=== PATIENT | male | born 1995 | race African-American/Black ===

== ENCOUNTER 2021-03-04 12:31 | Inpatient (IN) | payer OTHER, SELFPAY ==
[2021-03-04] VITALS (8 sets, daily range): BP systolic 126–141; BP diastolic 58–79; PULSE 100–120; RESP 15–22; TEMP 36.2–38.4; O2SAT 90–93; BMI 29.4
--- NOTE | ~2021-03-04 | CT_ITS ---
EXAMINATION: CT ANGIOGRAM OF THE CHEST WITH AND WITHOUT CONTRAST (CT PULMONARY ANGIOGRAM FOR PE) CLINICAL INFORMATION: Reason for Exam high ddimer, hypoxia, r/o PE COMPARISON: Chest x-ray from earlier the same day TECHNIQUE: Prior to contrast administration, noncontrast localization images were obtained. Subsequently, multidetector volumetric imaging was performed from the thoracic inlet to below the diaphragms following the administration of 100 mL Omnipaque 350 intravenous contrast. No contrast reaction reported Sagittal, coronal, and MIP oblique sagittal reformatted images were obtained on the CT workstation, uploaded to PACS, and reviewed. This CT examination was performed using dose optimization techniques as appropriate, variously including the following: *Automated exposure control *Adjustment of mA and/or kV according to patient size (this includes techniques or standardized protocols for targeted exams where dose is matched to indication/reason for exam; i.e. extremities or head) *Use of iterative reconstruction technique Total exam dose-length product 353 mGy-cm FINDINGS: QUALITY OF STUDY/CONTRAST BOLUS: Satisfactory. PULMONARY ARTERIES: No central or segmental pulmonary emboli. THORACIC AORTA: No aneurysm or dissection. LUNG: There is dense consolidation of the left lower lobe with air bronchograms suggestive of pneumonia. There is patchy nodular opacities, bronchial wall thickening and increased peribronchial attenuation seen in the right lower lobe developed small bronchopneumonia. The lungs are otherwise. PLEURA: No pleural effusion or pneumothorax. MEDIASTINUM: Normal heart size. No pericardial effusion. No hilar or mediastinal lymphadenopathy. No evidence of septal bowing or right heart strain. CHEST WALL/AXILLA: No axillary or internal mammary lymphadenopathy. OSSEOUS STRUCTURES: No acute or suspicious osseous abnormality. UPPER ABDOMEN: Unremarkable. No reflux of contrast into the hepatic veins to suggest elevated right heart pressures. CT/CT angio chest PE protocol IMPRESSION: No evidence of pulmonary embolism. Large left lower lobe pneumonia. Small right lower lobe bronchopneumonia. VTE: negative
--- NOTE | ~2021-03-04 | CT_ITS ---
EXAMINATION: CT ABDOMEN AND PELVIS WITH CONTRAST CLINICAL INFORMATION: Elevated liver function tests. Fever. COMPARISON: Chest CTA obtained earlier today TECHNIQUE: Multidetector volumetric images were obtained from the superior aspect of the liver through the pubic symphysis following administration 100 mL of Omnipaque 350 intravenous contrast. Sagittal and coronal reformatted images were obtained on the technologist's workstation. Oral contrast: Yes This CT examination was performed using dose optimization techniques as appropriate, variously including the following: *Automated exposure control *Adjustment of mA and/or kV according to patient size (this includes techniques or standardized protocols for targeted exams where dose is matched to indication/reason for exam; i.e. extremities or head) *Use of iterative reconstruction technique DLP: 646 mGy-cm FINDINGS: LUNG BASES: Large left lower lobe pneumonia and small right lower lobe bronchopneumonia. LIVER, GALLBLADDER, AND BILIARY TREE: The liver is slightly low in attenuation suggestive of fatty infiltration. Liver slightly enlarged, right lobe measuring 21 cm in length. The liver is otherwise unremarkable. The gallbladder is unremarkable. PANCREAS: Unremarkable. SPLEEN: Unremarkable. ADRENAL GLANDS: Unremarkable. KIDNEYS AND URETERS: The kidneys are normal in size, shape, and attenuation. No hydronephrosis, hydroureter, or calculi seen. No perinephric stranding. BLADDER: Unremarkable. GASTROINTESTINAL TRACT: The small and large bowel are unremarkable. The appendix is unremarkable. ABDOMINAL WALL: No significant hernia is appreciated. LYMPH NODES: Normal. VASCULAR: Unremarkable. PELVIC VISCERA: Unremarkable. OSSEOUS STRUCTURES: Unremarkable. CT/CT abdomen pelvis w con IMPRESSION: Low-attenuation slightly enlarged liver suggestive of fatty infiltration. Large left lower lobe pneumonia and small right lower lobe bronchopneumonia.
--- NOTE | ~2021-03-04 | XR_ITS ---
EXAMINATION: XR CHEST CLINICAL INFORMATION: Pneumonia COMPARISON: March 07, 2021 TECHNIQUE: 2 views of the chest were obtained. FINDINGS: There is again noted to be left lower lobe disease consistent with pneumonia which is mildly improved compared to previous study. No pneumothorax or significant pleural effusion. Heart normal size. No evidence of pulmonary edema. XR/XR chest 2V IMPRESSION: Mild improvement of left lower lobe airspace disease.
--- NOTE | ~2021-03-04 | XR_ITS ---
EXAMINATION: XR CHEST CLINICAL INFORMATION: Follow-up pneumonia COMPARISON: Previous chest x-ray 03/04/2021 and chest CTA the same day TECHNIQUE: Frontal view of the chest was obtained. FINDINGS: The cardiac and mediastinal contours are stable. The lung volumes are low. There is a large left base pneumonia. This is not appear appreciably changed from previous exam. The right lung is clear. There is no pleural effusion or pneumothorax. Bony structures are unremarkable. XR/XR chest 1V IMPRESSION: Left lower lobe pneumonia not appreciably changed from recent exams.
--- NOTE | ~2021-03-04 | XR_ITS ---
EXAMINATION: XR CHEST CLINICAL INFORMATION: Dyspnea COMPARISON: None TECHNIQUE: Frontal view of the chest was obtained. FINDINGS: The cardiac silhouette does not appear enlarged. Hilar and mediastinal contours are unremarkable. There is loss of the left hemidiaphragm and increased attenuation at the left lung base suggestive of left base pneumonia, probably the left lower lobe. The right lung is clear. There is no pleural effusion or pneumothorax. Bony structures are unremarkable XR/XR chest 1V IMPRESSION: Left base pneumonia.
--- NOTE | 2021-03-04 12:43 | ECG_ITS ---
Test Reason : SYNCOPE Blood Pressure : / mmHG Vent. Rate : 111 BPM Atrial Rate : 111 BPM P-R Int : 138 ms QRS Dur : 090 ms QT Int : 324 ms P-R-T Axes : 060 048 029 degrees QTc Int : 440 ms Sinus tachycardia Otherwise normal ECG No previous ECGs available Referred By: Aicha Gao Electronically Signed By:TWAN MICHELLE MD
[2021-03-04 12:49] LABS: Glucose, Whole Blood 205 mg/dL (60-115)
--- NOTE | 2021-03-04 12:53 | ED.SOB ---
HPI - SOB/Dyspnea General Chief Complaint: Syncope Stated Complaint: ? covid Time Seen by Provider: 03/04/21 12:42 Source: patient and EMS Mode of arrival: EMS Limitations: no limitations History of Present Illness HPI Narrative: 26 yo male with hypoxia, cough, feeling unwell since vomiting on 02/26 seen in methadone clinic and sent to ED, 93% on 6L NC with EMS MD elicited complaint: shortness of breath and cough Onset (ago): day(s) (7) Context: recent illness and choking/aspiration Timing: constant and progressively worsening Severity: severe Exacerbating factors: exertion and coughing Relieving factors: oxygen and rest Associated symptoms: cough Treatment prior to arrival: oxygen Related Data Home Medications Medication Instructions Recorded Confirmed methadone 140 mg PO DAILY 03/04/21 03/04/21 Allergies Allergy/AdvReac Type Severity Reaction Status Date / Time hydrocodone [Vicodin] Allergy Unknown stomach Verified 03/04/21 15:15 upset Review of Systems Review of Systems: Constitutional : No Fever, pos Chills, pos fatigue ENT/Mouth : No sore throat, No Rhinorrhea, No Swallowing Difficulty Eyes: No Eye Pain, No Swelling, No Redness Cardiovascular : No Chest Pain, positive SOB, No Orthopnea, no Edema Respiratory : pos Cough, pos Sputum, no Wheezing, positive dyspnea Gastrointestinal : pos Nausea, No Vomiting, No Diarrhea, No abdominal Pain, No Hematochezia, No Melena Genitourinary : No Dysuria, No Urinary Frequency, No Hematuria Musculoskeletal : No joint pain, No Myalgias Skin : No Skin Lesions, No rash Neuro : No Weakness, No Numbness, No Dizziness, No Headache Psych : No Anxiety/Panic, No Depression Heme/Lymph: No Bruising, No Lymphadenopathy Endocrine : No Polyuria, No Polydipsia All other systems reviewed and are negative [facility] Past Medical History Attestation statement: The following information was validated with the patient. Medical History Opiate use Social History Social History (Updated 03/04/21 @ 12:57 by Aicha Gao DO) Alcohol intake: never Patient Tobacco Use Status: Never used Tobacco Substance Use Type: Former Substance User Advance Directives: No Advance Directives Information Provided: No Physical Exam Vital Signs: Vital Signs: Last Vital Signs Temp 101.1 F H 03/04/21 12:42 Pulse 116 H 03/04/21 13:50 Resp 20 03/04/21 13:50 BP 141/79 H 03/04/21 13:50 Pulse Ox 92 03/04/21 13:56 Oxygen Flow Rate 2 03/04/21 13:56 Body Mass Index 29.4 Appearance: Alert. Oriented X3. Anxious mild acute distress. Eyes: Pupils equal, round and reactive to light. scleral icterus ENT: Pharynx moderate dry MMM Neck: Normal inspection. Neck supple. CVS: tachcyardic heart rate and rhythm. Pulses normal. Respiratory: mild respiratory distress tachypnea/retractions. Breath sounds decreased throughout Abdomen: Soft and non-tender. Skin: Skin warm and dry. Normal skin color. Normal skin turgor. Extremities: No lower extremity edema. No calf ttp Neuro: Oriented X 3. No motor deficit. No sensory deficit. Course Course Course Narrative: patient was not very forthcoming with me during interview but reportedly EMS told RN he had syncopal episode at methadone clinic - he has no injuries reported given LFTs, CT scan for mass / infection ordered sign out to Dr. Staton pending CT scans and admission MDM - SOB/Dyspnea MDM Narrative Medical decision making narrative: 26 yo male with 1 week of feeling ill and trouble breathing after vomiting, on methadone no IVDA, febrile and hypoxic in ED - no prior asthma known or use of INH at this time will obtain labs, COVID swab, xopenex, O2 supplement, CXR, EKG, ddimer - anticipate admission for pneumonia vs aspiration pneumonia vs COVID Lab Data Result diagrams: 03/04/21 14:35 03/04/21 14:35 Labs: Lab Results 03/04/21 03/04/21 03/04/21 Range/Units 12:45 14:34 14:35 WBC 22.3 H (4.8-10.8) X10*3/uL RBC 3.80 L (4.60-5.80) X10*6/uL Hgb 12.3 L (14.0-18.0) g/dl Hct 35.4 L (42-52) % MCV 93.2 (80-98) fL MCH 32.4 (27.0-33.0) pg MCHC 34.7 (31.0-36.0) g/dl RDW 12.2 (11.0-16.0) % Plt Count 229 (160-400) X10*3/uL MPV 10.8 (9.4-12.4) fL Immature Gran % (Auto) Cancelled Neut % (Auto) Cancelled Lymph % (Auto) Cancelled Treasure % (Auto) Cancelled Eos % (Auto) Cancelled Baso % (Auto) Cancelled Lymph # (Auto) Cancelled [place] # (Auto) Cancelled Eos # (Auto) Cancelled Baso # (Auto) Cancelled Abs Immat Gran (auto) Cancelled Absolute Neuts (auto) Cancelled Absolute Nucleated RBC 0.040 H (0.0-0.012) X10*3/uL Nucleated RBC % (auto) 0.2 (0.0-0.2) /100WBC Neutrophils % (Manual) 57 (45-73) % Band Neutrophils % 29 H (3-5) % Lymphocytes % (Manual) 4 L (20-40) % Atypical Lymphs % (Man) 1 (0-6) % Monocytes % (Manual) 4 (2-11) % Metamyelocytes % 3 % Myelocytes % 2 % Abs Neuts (Manual) 19.2 H (2.2-7.9) X10*3/uL Lymphocytes # (Manual) 0.9 (0.6-4.8) X10*3/uL Atyp Lymphs # (Manual) 0.2 x10*3/uL Monocytes # (Manual) 0.9 (0.0-1.2) X10*3/uL Metamyelocytes # 0.7 X10*3/uL Myelocytes # 0.4 X10*/uL Toxic Vacuolation PRESENT Platelet Estimate NORMAL (NORMAL) Large Platelets PRESENT Plt Morphology Comment NOTED RBC Morphology NORMAL Polychromasia 2+ (3-5) /OIF Target Cells 1+ (5-14) /OIF Lane Cells 3+ (>5) /OIF Acanthocytes (Spur) 1+ (0-2) /OIF PT (10.8-13.0) SEC INR (0.9-1.1) APTT (24.1-38.0) SEC D-Dimer NG/ML VBG pH (7.32-7.43) VBG pCO2 mmHg VBG pO2 mmHg VBG HCO3 (22-26) mmol/L VBG O2 Saturation % VBG Base Excess mmol/L Sodium (135-145) mmol/L Potassium (3.3-5.1) mmol/L Chloride (96-108) mmol/L Carbon Dioxide (22-29) mmol/L Anion Gap (12-20) BUN (9-16) mg/dL Creatinine (0.5-1.4) mg/dL Estim Creat Clear Calc Estimated GFR POC Glucose 205 H (60-115) mg/dL Random Glucose (60-115) mg/dL Lactic Acid 1.8 (0.5-2.0) mmol/L Calcium (8.4-10.2) mg/dL Magnesium (1.6-2.6) mg/dL Total Bilirubin (0.0-1.0) mg/dL Direct Bilirubin (0.0-0.5) mg/dL AST (5-37) U/L ALT (0-40) U/L Alkaline Phosphatase (39-117) U/L Lactate Dehydrogenase (118-273) U/L Total Creatine Kinase (38-174) U/L Troponin I High Sens (<3.5-35.0) ng/L C-Reactive Protein (< or = 0.50) mg/dL B-Natriuretic Peptide (<100) pg/mL Total Protein (6.5-8.0) g/dL Albumin (3.5-5.0) g/dL Procalcitonin ng/mL Urine Color Urine Appearance Urine pH (5.0-8.0) Ur Specific [place] (1.005-1.025) Urine Protein (NEG-TRACE) MG/DL Urine Glucose (UA) (NEG) MG/DL Urine Ketones (NEG) MG/DL Urine Blood (NEG) Urine Nitrite (NEG) Ur Leukocyte Esterase (NEG) Urine RBC (0) /HPF Urine WBC (0-4) /HPF Ur Squamous Epith Cells /LPF Amorphous Sediment /LPF Urine Bacteria /LPF COVID-19 (CHANDA) (Negative) COVID-19 Clin Com 03/04/21 03/04/21 03/04/21 Range/Units 14:35 14:36 14:37 WBC (4.8-10.8) X10*3/uL RBC (4.60-5.80) X10*6/uL Hgb (14.0-18.0) g/dl Hct (42-52) % MCV (80-98) fL MCH (27.0-33.0) pg MCHC (31.0-36.0) g/dl RDW (11.0-16.0) % Plt Count (160-400) X10*3/uL MPV (9.4-12.4) fL Immature Gran % (Auto) Neut % (Auto) Lymph % (Auto) Treasure % (Auto) Eos % (Auto) Baso % (Auto) Lymph # (Auto) [place] # (Auto) Eos # (Auto) Baso # (Auto) Abs Immat Gran (auto) Absolute Neuts (auto) Absolute Nucleated RBC (0.0-0.012) X10*3/uL Nucleated RBC % (auto) (0.0-0.2) /100WBC Neutrophils % (Manual) (45-73) % Band Neutrophils % (3-5) % Lymphocytes % (Manual) (20-40) % Atypical Lymphs % (Man) (0-6) % Monocytes % (Manual) (2-11) % Metamyelocytes % % Myelocytes % % Abs Neuts (Manual) (2.2-7.9) X10*3/uL Lymphocytes # (Manual) (0.6-4.8) X10*3/uL Atyp Lymphs # (Manual) x10*3/uL Monocytes # (Manual) (0.0-1.2) X10*3/uL Metamyelocytes # X10*3/uL Myelocytes # X10*/uL Toxic Vacuolation Platelet Estimate (NORMAL) Large Platelets Plt Morphology Comment RBC Morphology Polychromasia /OIF Target Cells /OIF Monique Cells /OIF Acanthocytes (Spur) /OIF PT 20.2 H (10.8-13.0) SEC INR 1.7 H (0.9-1.1) APTT 39.2 H (24.1-38.0) SEC D-Dimer 1887 NG/ML VBG pH (7.32-7.43) VBG pCO2 mmHg VBG pO2 mmHg VBG HCO3 (22-26) mmol/L VBG O2 Saturation % VBG Base Excess mmol/L Sodium 129 L (135-145) mmol/L Potassium 4.0 (3.3-5.1) mmol/L Chloride 89 L (96-108) mmol/L Carbon Dioxide 28 (22-29) mmol/L Anion Gap 16 (12-20) BUN 18 H (9-16) mg/dL Creatinine 1.03 (0.5-1.4) mg/dL Estim Creat Clear Calc 122.3 Estimated GFR > 60 POC Glucose (60-115) mg/dL Random Glucose 137 H (60-115) mg/dL Lactic Acid (0.5-2.0) mmol/L Calcium 8.8 (8.4-10.2) mg/dL Magnesium 2.4 (1.6-2.6) mg/dL Total Bilirubin 5.3 H (0.0-1.0) mg/dL Direct Bilirubin 3.7 H (0.0-0.5) mg/dL AST 138 H (5-37) U/L ALT 43 H (0-40) U/L Alkaline Phosphatase 98 (39-117) U/L Lactate Dehydrogenase 943 H (118-273) U/L Total Creatine Kinase 833 H (38-174) U/L Troponin I High Sens < 3.5 (<3.5-35.0) ng/L C-Reactive Protein 43.29 H (< or = 0.50) mg/dL B-Natriuretic Peptide < 10 (<100) pg/mL Total Protein 6.9 (6.5-8.0) g/dL Albumin 3.6 (3.5-5.0) g/dL Procalcitonin ng/mL Urine Color Urine Appearance Urine pH (5.0-8.0) Ur Specific [place] (1.005-1.025) Urine Protein (NEG-TRACE) MG/DL Urine Glucose (UA) (NEG) MG/DL Urine Ketones (NEG) MG/DL Urine Blood (NEG) Urine Nitrite (NEG) Ur Leukocyte Esterase (NEG) Urine RBC (0) /HPF Urine WBC (0-4) /HPF Ur Squamous Epith Cells /LPF Amorphous Sediment /LPF Urine Bacteria /LPF COVID-19 (CHANDA) (Negative) COVID-19 Clin Com 03/04/21 03/04/21 03/04/21 Range/Units 14:42 14:43 14:50 WBC (4.8-10.8) X10*3/uL RBC (4.60-5.80) X10*6/uL Hgb (14.0-18.0) g/dl Hct (42-52) % MCV (80-98) fL MCH (27.0-33.0) pg MCHC (31.0-36.0) g/dl RDW (11.0-16.0) % Plt Count (160-400) X10*3/uL MPV (9.4-12.4) fL Immature Gran % (Auto) Neut % (Auto) Lymph % (Auto) Treasure % (Auto) Eos % (Auto) Baso % (Auto) Lymph # (Auto) [place] # (Auto) Eos # (Auto) Baso # (Auto) Abs Immat Gran (auto) Absolute Neuts (auto) Absolute Nucleated RBC (0.0-0.012) X10*3/uL Nucleated RBC % (auto) (0.0-0.2) /100WBC Neutrophils % (Manual) (45-73) % Band Neutrophils % (3-5) % Lymphocytes % (Manual) (20-40) % Atypical Lymphs % (Man) (0-6) % Monocytes % (Manual) (2-11) % Metamyelocytes % % Myelocytes % % Abs Neuts (Manual) (2.2-7.9) X10*3/uL Lymphocytes # (Manual) (0.6-4.8) X10*3/uL Atyp Lymphs # (Manual) x10*3/uL Monocytes # (Manual) (0.0-1.2) X10*3/uL Metamyelocytes # X10*3/uL Myelocytes # X10*/uL Toxic Vacuolation Platelet Estimate (NORMAL) Large Platelets Plt Morphology Comment RBC Morphology Polychromasia /OIF Target Cells /OIF Lane Cells /OIF Acanthocytes (Spur) /OIF PT (10.8-13.0) SEC INR (0.9-1.1) APTT (24.1-38.0) SEC D-Dimer NG/ML VBG pH 7.40 (7.32-7.43) VBG pCO2 47 mmHg VBG pO2 37 mmHg VBG HCO3 29 H (22-26) mmol/L VBG O2 Saturation 58.0 % VBG Base Excess 4.3 mmol/L Sodium (135-145) mmol/L Potassium (3.3-5.1) mmol/L Chloride (96-108) mmol/L Carbon Dioxide (22-29) mmol/L Anion Gap (12-20) BUN (9-16) mg/dL Creatinine (0.5-1.4) mg/dL Estim Creat Clear Calc Estimated GFR POC Glucose (60-115) mg/dL Random Glucose (60-115) mg/dL Lactic Acid (0.5-2.0) mmol/L Calcium (8.4-10.2) mg/dL Magnesium (1.6-2.6) mg/dL Total Bilirubin (0.0-1.0) mg/dL Direct Bilirubin (0.0-0.5) mg/dL AST (5-37) U/L ALT (0-40) U/L Alkaline Phosphatase (39-117) U/L Lactate Dehydrogenase (118-273) U/L Total Creatine Kinase (38-174) U/L Troponin I High Sens (<3.5-35.0) ng/L C-Reactive Protein (< or = 0.50) mg/dL B-Natriuretic Peptide Cancelled (<100) pg/mL Total Protein (6.5-8.0) g/dL Albumin (3.5-5.0) g/dL Procalcitonin ng/mL Urine Color Urine Appearance Urine pH (5.0-8.0) Ur Specific [place] (1.005-1.025) Urine Protein (NEG-TRACE) MG/DL Urine Glucose (UA) (NEG) MG/DL Urine Ketones (NEG) MG/DL Urine Blood (NEG) Urine Nitrite (NEG) Ur Leukocyte Esterase (NEG) Urine RBC (0) /HPF Urine WBC (0-4) /HPF Ur Squamous Epith Cells /LPF Amorphous Sediment /LPF Urine Bacteria /LPF COVID-19 (CHANDA) Negative (Negative) COVID-19 Clin Com See Note 03/04/21 03/04/21 Range/Units 14:56 16:02 WBC (4.8-10.8) X10*3/uL RBC (4.60-5.80) X10*6/uL Hgb (14.0-18.0) g/dl Hct (42-52) % MCV (80-98) fL MCH (27.0-33.0) pg MCHC (31.0-36.0) g/dl RDW (11.0-16.0) % Plt Count (160-400) X10*3/uL MPV (9.4-12.4) fL Immature Gran % (Auto) Neut % (Auto) Lymph % (Auto) Treasure % (Auto) Eos % (Auto) Baso % (Auto) Lymph # (Auto) Treasure # (Auto) Eos # (Auto) Baso # (Auto) Abs Immat Gran (auto) Absolute Neuts (auto) Absolute Nucleated RBC (0.0-0.012) X10*3/uL Nucleated RBC % (auto) (0.0-0.2) /100WBC Neutrophils % (Manual) (45-73) % Band Neutrophils % (3-5) % Lymphocytes % (Manual) (20-40) % Atypical Lymphs % (Man) (0-6) % Monocytes % (Manual) (2-11) % Metamyelocytes % % Myelocytes % % Abs Neuts (Manual) (2.2-7.9) X10*3/uL Lymphocytes # (Manual) (0.6-4.8) X10*3/uL Atyp Lymphs # (Manual) x10*3/uL Monocytes # (Manual) (0.0-1.2) X10*3/uL Metamyelocytes # X10*3/uL Myelocytes # X10*/uL Toxic Vacuolation Platelet Estimate (NORMAL) Large Platelets Plt Morphology Comment RBC Morphology Polychromasia /OIF Target Cells /OIF Lane Cells /OIF Acanthocytes (Spur) /OIF PT (10.8-13.0) SEC INR (0.9-1.1) APTT (24.1-38.0) SEC D-Dimer NG/ML VBG pH (7.32-7.43) VBG pCO2 mmHg VBG pO2 mmHg VBG HCO3 (22-26) mmol/L VBG O2 Saturation % VBG Base Excess mmol/L Sodium (135-145) mmol/L Potassium (3.3-5.1) mmol/L Chloride (96-108) mmol/L Carbon Dioxide (22-29) mmol/L Anion Gap (12-20) BUN (9-16) mg/dL Creatinine (0.5-1.4) mg/dL Estim Creat Clear Calc Estimated GFR POC Glucose (60-115) mg/dL Random Glucose (60-115) mg/dL Lactic Acid (0.5-2.0) mmol/L Calcium (8.4-10.2) mg/dL Magnesium (1.6-2.6) mg/dL Total Bilirubin (0.0-1.0) mg/dL Direct Bilirubin (0.0-0.5) mg/dL AST (5-37) U/L ALT (0-40) U/L Alkaline Phosphatase (39-117) U/L Lactate Dehydrogenase (118-273) U/L Total Creatine Kinase (38-174) U/L Troponin I High Sens (<3.5-35.0) ng/L C-Reactive Protein (< or = 0.50) mg/dL B-Natriuretic Peptide (<100) pg/mL Total Protein (6.5-8.0) g/dL Albumin (3.5-5.0) g/dL Procalcitonin 37.72 ng/mL Urine Color ORANGE Urine Appearance CLEAR Urine pH 6.0 (5.0-8.0) Ur Specific [place] 1.025 (1.005-1.025) Urine Protein 2+ H (NEG-TRACE) MG/DL Urine Glucose (UA) 100 H (NEG) MG/DL Urine Ketones 5 (NEG) MG/DL Urine Blood 2+ H (NEG) Urine Nitrite NEG (NEG) Ur Leukocyte Esterase NEG (NEG) Urine RBC 1-4 (0) /HPF Urine WBC 0-2 (0-4) /HPF Ur Squamous Epith Cells TRACE /LPF Amorphous Sediment 1+ /LPF Urine Bacteria TRACE /LPF COVID-19 (CHANDA) (Negative) COVID-19 Clin Com ECG Data Attestation: I personally reviewed and interpreted this ECG as follows: ECG interpretation date: 03/04/21 ECG interpretation time: 15:14 Interpretation: Rate: 111 Rhythm: sinus tachycardia [place]: normal Normal P waves. Normal JON. Normal QRS complex. ST T wave : normal no ELIUD qTC: normal prior studies: no acute ischemia The study has been interpreted contemporaneously by me. . Critical Care Time Critical Care Time Critical Care Time: Yes Total Critical Care Time: 35 Attestation: O2 supplementation, IV antibiotics, repeat assessments I attest to this time spent taking care of the patient Discharge Plan Discharge Clinical Impression: Elevated liver function tests, Hyperbilirubinemia Pneumonia Qualifiers: Pneumonia type: due to unspecified organism Laterality: left Lung location: lower lobe of lung Qualified Code(s): J18.9 - Pneumonia, unspecified organism Leukocytosis Qualifiers: Leukocytosis type: unspecified Qualified Code(s): D72.829 - Elevated white blood cell count, unspecified Fever Qualifiers: Fever type: unspecified Qualified Code(s): R50.9 - Fever, unspecified Patient Disposition: Admitted As Inpatient
[2021-03-04 14:58] LABS: VBG Base Excess 4.3 mmol/L; VBG HCO3 29 mmol/L (22-26); VBG pCO2 47 mmHg; VBG pO2 37 mmHg
[2021-03-04 14:59] LABS: Venous Blood Gas Refer to POC result
[2021-03-04 15:00] LABS: Hematocrit 35.4 % (42-52); Hemoglobin 12.3 g/dl (14.0-18.0); Mean Corpuscular HGB Conc 34.7 g/dl (31.0-36.0); Mean Corpuscular Hemoglobin 32.4 pg (27.0-33.0); Mean Corpuscular Volume 93.2 fL (80-98); Mean Platelet Volume 10.8 fL (9.4-12.4); NRBC Pct Auto 0.2 /100WBC (0.0-0.2); Platelet Count 229 X10*3/uL (160-400); Red Cell Distribution Width 12.2 % (11.0-16.0); White Blood Count 22.3 X10*3/uL (4.8-10.8)
[2021-03-04 15:06] LABS: INTERNATIONAL NORM RATIO 1.7 (0.9-1.1); Prothrombin Time 20.2 SEC (10.8-13.0)
[2021-03-04] MEDS: Acetaminophen 325 MG TABLET 650 MG PO (15:13)
[2021-03-04] MEDS: cefTRIAXone sodium 1 GM in 0.9 % Sodium Chloride 50 ML IV (15:13)
[2021-03-04 15:16] LABS: D Dimer 1887 NG/ML; Partial Thromboplastin Time 39.2 SEC (24.1-38.0)
--- NOTE | 2021-03-04 15:17 | PC.NURSE ---
Pt continues to require nasal cannula. 93% on 5L. Pt denies feeling SOB.
[2021-03-04 15:19] LABS: Lactic Acid 1.8 mmol/L (0.5-2.0)
[2021-03-04 15:21] LABS: COVID-19 Test Negative (Negative); IDNOW Serial# 9DD0AD1C
[2021-03-04 15:32] LABS: B Type Natriuretic Peptide < 10 pg/mL (<100); Troponin-I High Sensitivity < 3.5 ng/L (<3.5-35.0)
[2021-03-04 15:47] LABS: Acanthocytes 1+ (0-2) /OIF; Alanine Aminotransferase 43 U/L (0-40); Albumin Level 3.6 g/dL (3.5-5.0); Alkaline Phosphatase 98 U/L (39-117); Anion Gap 16 (12-20); Aspartate Amino Transferase 138 U/L (5-37); Atypical Lymph Absolute Manual 0.2 x10*3/uL; Atypical Lymphs Percent Manual 1 % (0-6); Band Neutrophils Percent 29 % (3-5); Bilirubin Direct 3.7 mg/dL (0.0-0.5); Bilirubin Total 5.3 mg/dL (0.0-1.0); Blood Urea Nitrogen 18 mg/dL (9-16); Burr Cells 3+ (>5) /OIF; Calcium 8.8 mg/dL (8.4-10.2); Carbon Dioxide 28 mmol/L (22-29); Chloride 89 mmol/L (96-108); Creatinine Clr Calc Pharmacy 122.3; Estimated Glomerular Filt Rate > 60; Glucose Random 137 mg/dL (60-115); Lactate Dehydrogenase 943 U/L (118-273); Large Platelet PRESENT; Lymphocytes Absolute Manual 0.9 X10*3/uL (0.6-4.8); Lymphocytes Percent Manual 4 % (20-40); Magnesium 2.4 mg/dL (1.6-2.6); Metamyelocytes Absolute 0.7 X10*3/uL; Metamyelocytes Percent 3 %; Monocytes Absolute Manual 0.9 X10*3/uL (0.0-1.2); Monocytes Percent Manual 4 % (2-11); Myelocytes Absolute 0.4 X10*/uL; Myelocytes Percent 2 %; Neutrophils Absolute Manual 19.2 X10*3/uL (2.2-7.9); Neutrophils Percent Manual 57 % (45-73); Platelet Estimate NORMAL (NORMAL); Platelet Morphology Comment NOTED; Polychromasia 2+ (3-5) /OIF; RBC Morphology NORMAL; Sodium 129 mmol/L (135-145); Target Cells 1+ (5-14) /OIF; Total Protein 6.9 g/dL (6.5-8.0); Toxic Vacuolation PRESENT
[2021-03-04 15:53] LABS: Procalcitonin 37.72 ng/mL
[2021-03-04 16:01] LABS: C Reactive Protein 43.29 mg/dL (< or = 0.50)
--- NOTE | 2021-03-04 16:09 | PC.NURSE ---
pt is currently caox4 and resting comfortably in semifowlers position pt has slight accessory muscle use and coares LS on left side. pt is in sinus tach on monitor pt denies discomfort at this time. message was left by this rn with jan mendieta regarding methadone dosing.
[2021-03-04 16:10] LABS: Glucose Urine UA 100 MG/DL (NEG); Leukocyte Esterase Urine NEG (NEG); Specific Gravity - Urine 1.025 (1.005-1.025); Urine Blood 2+ (NEG); Urine Ketones 5 MG/DL (NEG); Urine Protein 2+ MG/DL (NEG-TRACE)
[2021-03-04] MEDS: Azithromycin 500 MG in 0.9 % Sodium Chloride 250 ML 125 MG IV (16:22)
[2021-03-04 16:25] LABS: Nitrite Urine NEG (NEG)
[2021-03-04] MEDS: iohexoL 350 MG/ML 100 ML INFUS..BTL IV (16:25)
[2021-03-04 16:26] LABS: Appearance Urine CLEAR; Color Urine ORANGE
[2021-03-04] MEDS: 0.9 % Sodium Chloride 1,000 ML 999 ML IVCONT (16:30)
[2021-03-04 16:32] LABS: Amorphous Sediment Urine 1+ /LPF; Bacteria Urine TRACE /LPF; Squamous Epithelial Cell Urine TRACE /LPF; WBC Urine 0-2 /HPF (0-4)
--- NOTE | 2021-03-04 16:32 | HE.PHANOTE ---
Pharmacy has completed the medication reconciliation and there were no significant medication issues requiring provider attention.
[2021-03-04 16:49] LABS: Amphetamine Screen Urine Not Detected (Not Detect); Barbiturates, Urine Not Detected (Not Detect); Benzodiazepines Screen Urine Not Detected (Not Detect); Cannabinoid Screen Urine Not Detected (Not Detect); Cocaine Screen Urine POSITIVE (Not Detect); Opiate Screen Urine POSITIVE (Not Detect); Phencyclidine Screen Urine Not Detected (Not Detect)
--- NOTE | 2021-03-04 17:47 | MHC.RECOVSUP ---
? Reason for consult Recovery support o Current location: ED3 o Identified substance use concern: Heroin - Support ? Intervention: o Community resources provided o Harm reduction discussion ? Plan: o Patient to follow up with [facility] after discharge ? Additional information: Patient relapsed on and off for 2 years.Patient has been on MAT for 4 years.. Was able to talk with patient about harm reduction and [facility].. I supplied patien with recovery information Patient stated that He would check it out
[2021-03-04] MEDS: vancomycin HCL 1,000 MG in 0.9 % Sodium Chloride 250 ML 270 MG IV (19:48)
--- NOTE | 2021-03-04 20:01 | PM.IMHP ---
History of Present Illness Date of Service: 03/04/21 Chief Complaint: Shortness of breath 26-year-old female with a past medical history of polysubstance abuse/abuses cocaine and heroin; opiate dependence on methadone maintenance program, presented to the hospital with a chief complaint of cough and shortness of breath. Patient mentions that she has been using heroin and last use was yesterday and this morning when she woke up she had multiple episodes of nausea and vomiting; denies any blood in the vomitus. Denies any chest pain palpitations. Denies any numbness tingling. Denies any symptoms. Review of all other systems is negative except mentioned above ER course: Per ER team patient noted to be hypoxic at 92% on 5 L; patient was given vanc and Zosyn. Noted to have hyponatremia, leukocytosis, normal lactate, elevated procalcitonin. Patient not in respiratory distress. Mildly tachycardic. CT angio chest showed left lower lobe pneumonia; question aspirated. No evidence of pulmonary embolism. COVID-19 negative. Patient was given nebulizer treatment as well. admitted for further management [facility] Medical History Opiate use Respiratory failure with hypoxia Respiratory failure with hypoxia Substance abuse or dependence Social History Household Members: None Housing: Apartment Alcohol intake: never Patient Tobacco Use Status: Never used Tobacco Use of substances other than those prescribed or required for medical reasons: Yes Substance Use Type: Crack/Cocaine Last Used Substance: Just Prior to Admission Currently Displaying Signs/Symptoms of Drug Intoxication Withdrawal: No Any prior treatment program specific to substance use: Yes Have you been hit, kicked, punched, or otherwise hurt by someone within the past year? If so, by whom?: No Do you feel safe in your current relationship?: No Current Relationship Is there a partner from a previous relationship who is making you feel unsafe now?: No Are you made to feel afraid or neglected: No Spiritual Healthcare Practices: n/a Jain Healthcare Practices: n/a Cultural Healthcare Practices: n/a Advance Directives: No Advance Directives Information Provided: No Do you have thoughts of harming others: None Do you have a plan to hurt others: No Plan Recently lost weight without trying: No Nutrition Risks: No Nutritional Risk Poor oral hygiene: No service: No Current occupational status: disabled Meds Allergies Allergy/AdvReac Type Severity Reaction Status Date / Time hydrocodone [Vicodin] Allergy Unknown stomach Verified 03/04/21 15:15 upset Active Medications: Current Medications Generic Name Dose Route Start Last Admin Trade Name Freq PRN Reason Stop Dose Admin Acetaminophen 650 mg 03/04/21 19:52 Acetaminophen 325 Mg Tablet PO Q6H PRN Pain, Mild (Pain Scale 1-3) Albuterol/Ipratropium 3 ml 03/04/21 19:52 Albuterol/Iprat 2.5/0.5mg 3 Ml Ampul.Neb INHALE RQ4H PRN Shortness of Breath/Wheezing Enoxaparin Sodium 40 mg 03/04/21 20:00 Enoxaparin Sodium 40 Mg/0.4 Ml Syringe SUBCUT Q24H TISH Dextrose/Sodium Chloride 1,000 mls @ 100 mls/hr 03/04/21 20:00 D5ns IVCONT .Q10H TISH Vancomycin HCl 1,000 mg/ 270 mls @ 270 mls/hr 03/04/21 20:00 Sodium Chloride IV Q12H TISH Piperacillin Sod/Tazobactam 50 mls @ 100 mls/hr 03/04/21 20:00 Sod 3.375 gm/ Sodium Chloride IV Q6H TISH Magnesium Hydroxide 30 ml 03/04/21 19:52 Milk Of Magnesia 30 Ml Oral.Susp PO DAILY PRN Constipation Ondansetron HCl 4 mg 03/04/21 19:52 Ondansetron Hcl 4 Mg/2 Ml Vial IVPUSH Q8H PRN Nausea and Vomiting Oxycodone HCl 5 mg 03/04/21 19:52 Oxycodone Hcl Immed Release 5 Mg Tablet PO Q6H PRN Pain, Severe (Pain Scale 7-10) Pharmacy Consult 1 each 03/04/21 12:51 Consult Rx Perform Med Rec MISCELLANE ONCE PRN Consult order Pharmacy Consult 1 each 03/04/21 19:52 Consult Rx Vancomycin Dosing MISCELLANE DAILY PRN Consult order Sodium Chloride 3 ml 03/05/21 00:00 0.9 % Sodium Chloride Flush 3 Ml Syringe IVFLUSH QSHIFT [facility] Home Medications Medication Instructions Recorded Confirmed Last Taken Type methadone 140 mg PO DAILY 03/04/21 03/04/2121 History Physical Exam Vital Signs and Narrative: Vital Signs: Last Vital Signs Temp 101.1 F H 03/04/21 12:42 Pulse 105 H 03/04/21 16:51 Resp 16 03/04/21 16:51 BP 141/74 H 03/04/21 16:51 Pulse Ox 92 03/04/21 13:56 Oxygen Flow Rate 2 03/04/21 13:56 Body Mass Index 29.4 Gen: Appears be in no acute distress HEENT: NCAT, Moist mucosa. Pulmonary: Course breath sounds, fair air entry CVS: Normal S1-S2 Abdomen: BS+, Soft, Nontender Extremities: Warm well perfused Neuro: Alert and awake. Results Labs CBC and Chem 7: 03/07/21 05:32 03/07/21 05:32 Labs: Laboratory Results - last 24 hr 03/04/21 03/04/21 03/04/21 12:45 14:34 14:35 MCV 93.2 MCH 32.4 MCHC 34.7 RDW 12.2 Plt Count 229 MPV 10.8 Immature Gran % (Auto) Cancelled Neut % (Auto) Cancelled Lymph % (Auto) Cancelled [place] % (Auto) Cancelled Eos % (Auto) Cancelled Baso % (Auto) Cancelled Lymph # (Auto) Cancelled [place] # (Auto) Cancelled Eos # (Auto) Cancelled Baso # (Auto) Cancelled Abs Immat Gran (auto) Cancelled Absolute Neuts (auto) Cancelled Absolute Nucleated RBC 0.040 H Nucleated RBC % (auto) 0.2 Neutrophils % (Manual) 57 Band Neutrophils % 29 H Lymphocytes % (Manual) 4 L Atypical Lymphs % (Man) 1 Monocytes % (Manual) 4 Metamyelocytes % 3 Myelocytes % 2 Abs Neuts (Manual) 19.2 H Lymphocytes # (Manual) 0.9 Atyp Lymphs # (Manual) 0.2 Monocytes # (Manual) 0.9 Metamyelocytes # 0.7 Myelocytes # 0.4 Toxic Vacuolation PRESENT Platelet Estimate NORMAL Large Platelets PRESENT Plt Morphology Comment NOTED RBC Morphology NORMAL Polychromasia 2+ (3-5) Target Cells 1+ (5-14) Monique Cells 3+ (>5) Acanthocytes (Spur) 1+ (0-2) PT INR APTT D-Dimer VBG pH VBG pCO2 VBG pO2 VBG HCO3 VBG O2 Saturation VBG Base Excess Anion Gap Estim Creat Clear Calc Estimated GFR POC Glucose 205 H Random Glucose Lactic Acid 1.8 Calcium Magnesium Total Bilirubin Direct Bilirubin AST ALT Alkaline Phosphatase Lactate Dehydrogenase Total Creatine Kinase Troponin I High Sens C-Reactive Protein B-Natriuretic Peptide Total Protein Albumin Procalcitonin Urine Color Urine Appearance Urine pH Ur Specific [place] Urine Protein Urine Glucose (UA) Urine Ketones Urine Blood Urine Nitrite Ur Leukocyte Esterase Urine RBC Urine WBC Ur Squamous Epith Cells Amorphous Sediment Urine Bacteria Urine Opiates Screen Ur Barbiturates Screen Ur Phencyclidine Scrn Ur Amphetamines Screen U Benzodiazepines Scrn Urine Cocaine Screen U Marijuana (THC) Screen COVID-19 (CHANDA) COVID-19 Clin Com 03/04/21 03/04/21 03/04/21 14:35 14:36 14:37 MCV MCH MCHC RDW Plt Count MPV Immature Gran % (Auto) Neut % (Auto) Lymph % (Auto) [place] % (Auto) Eos % (Auto) Baso % (Auto) Lymph # (Auto) [place] # (Auto) Eos # (Auto) Baso # (Auto) Abs Immat Gran (auto) Absolute Neuts (auto) Absolute Nucleated RBC Nucleated RBC % (auto) Neutrophils % (Manual) Band Neutrophils % Lymphocytes % (Manual) Atypical Lymphs % (Man) Monocytes % (Manual) Metamyelocytes % Myelocytes % Abs Neuts (Manual) Lymphocytes # (Manual) Atyp Lymphs # (Manual) Monocytes # (Manual) Metamyelocytes # Myelocytes # Toxic Vacuolation Platelet Estimate Large Platelets Plt Morphology Comment RBC Morphology Polychromasia Target Cells Monique Cells Acanthocytes (Spur) PT 20.2 H INR 1.7 H APTT 39.2 H D-Dimer 1887 VBG pH VBG pCO2 VBG pO2 VBG HCO3 VBG O2 Saturation VBG Base Excess Anion Gap 16 Estim Creat Clear Calc 122.3 Estimated GFR > 60 POC Glucose Random Glucose 137 H Lactic Acid Calcium 8.8 Magnesium 2.4 Total Bilirubin 5.3 H Direct Bilirubin 3.7 H AST 138 H ALT 43 H Alkaline Phosphatase 98 Lactate Dehydrogenase 943 H Total Creatine Kinase 833 H Troponin I High Sens < 3.5 C-Reactive Protein 43.29 H B-Natriuretic Peptide < 10 Total Protein 6.9 Albumin 3.6 Procalcitonin Urine Color Urine Appearance Urine pH Ur Specific [place] Urine Protein Urine Glucose (UA) Urine Ketones Urine Blood Urine Nitrite Ur Leukocyte Esterase Urine RBC Urine WBC Ur Squamous Epith Cells Amorphous Sediment Urine Bacteria Urine Opiates Screen Ur Barbiturates Screen Ur Phencyclidine Scrn Ur Amphetamines Screen U Benzodiazepines Scrn Urine Cocaine Screen U Marijuana (THC) Screen COVID-19 (CHANDA) COVID-19 Clin Com 03/04/21 03/04/21 03/04/21 14:42 14:43 14:50 MCV MCH MCHC RDW Plt Count MPV Immature Gran % (Auto) Neut % (Auto) Lymph % (Auto) [place] % (Auto) Eos % (Auto) Baso % (Auto) Lymph # (Auto) [place] # (Auto) Eos # (Auto) Baso # (Auto) Abs Immat Gran (auto) Absolute Neuts (auto) Absolute Nucleated RBC Nucleated RBC % (auto) Neutrophils % (Manual) Band Neutrophils % Lymphocytes % (Manual) Atypical Lymphs % (Man) Monocytes % (Manual) Metamyelocytes % Myelocytes % Abs Neuts (Manual) Lymphocytes # (Manual) Atyp Lymphs # (Manual) Monocytes # (Manual) Metamyelocytes # Myelocytes # Toxic Vacuolation Platelet Estimate Large Platelets Plt Morphology Comment RBC Morphology Polychromasia Target Cells Monique Cells Acanthocytes (Spur) PT INR APTT D-Dimer VBG pH 7.40 VBG pCO2 47 VBG pO2 37 VBG HCO3 29 H VBG O2 Saturation 58.0 VBG Base Excess 4.3 Anion Gap Estim Creat Clear Calc Estimated GFR POC Glucose Random Glucose Lactic Acid Calcium Magnesium Total Bilirubin Direct Bilirubin AST ALT Alkaline Phosphatase Lactate Dehydrogenase Total Creatine Kinase Troponin I High Sens C-Reactive Protein B-Natriuretic Peptide Cancelled Total Protein Albumin Procalcitonin Urine Color Urine Appearance Urine pH Ur Specific [place] Urine Protein Urine Glucose (UA) Urine Ketones Urine Blood Urine Nitrite Ur Leukocyte Esterase Urine RBC Urine WBC Ur Squamous Epith Cells Amorphous Sediment Urine Bacteria Urine Opiates Screen Ur Barbiturates Screen Ur Phencyclidine Scrn Ur Amphetamines Screen U Benzodiazepines Scrn Urine Cocaine Screen U Marijuana (THC) Screen COVID-19 (CHANDA) Negative COVID-19 Clin Com See Note 03/04/21 03/04/21 03/04/21 14:56 16:02 16:02 MCV MCH MCHC RDW Plt Count MPV Immature Gran % (Auto) Neut % (Auto) Lymph % (Auto) [place] % (Auto) Eos % (Auto) Baso % (Auto) Lymph # (Auto) [place] # (Auto) Eos # (Auto) Baso # (Auto) Abs Immat Gran (auto) Absolute Neuts (auto) Absolute Nucleated RBC Nucleated RBC % (auto) Neutrophils % (Manual) Band Neutrophils % Lymphocytes % (Manual) Atypical Lymphs % (Man) Monocytes % (Manual) Metamyelocytes % Myelocytes % Abs Neuts (Manual) Lymphocytes # (Manual) Atyp Lymphs # (Manual) Monocytes # (Manual) Metamyelocytes # Myelocytes # Toxic Vacuolation Platelet Estimate Large Platelets Plt Morphology Comment RBC Morphology Polychromasia Target Cells Monique Cells Acanthocytes (Spur) PT INR APTT D-Dimer VBG pH VBG pCO2 VBG pO2 VBG HCO3 VBG O2 Saturation VBG Base Excess Anion Gap Estim Creat Clear Calc Estimated GFR POC Glucose Random Glucose Lactic Acid Calcium Magnesium Total Bilirubin Direct Bilirubin AST ALT Alkaline Phosphatase Lactate Dehydrogenase Total Creatine Kinase Troponin I High Sens C-Reactive Protein B-Natriuretic Peptide Total Protein Albumin Procalcitonin 37.72 Urine Color ORANGE Urine Appearance CLEAR Urine pH 6.0 Ur Specific [place] 1.025 Urine Protein 2+ H Urine Glucose (UA) 100 H Urine Ketones 5 Urine Blood 2+ H Urine Nitrite NEG Ur Leukocyte Esterase NEG Urine RBC 1-4 Urine WBC 0-2 Ur Squamous Epith Cells TRACE Amorphous Sediment 1+ Urine Bacteria TRACE Urine Opiates Screen POSITIVE H Ur Barbiturates Screen Not Detected Ur Phencyclidine Scrn Not Detected Ur Amphetamines Screen Not Detected U Benzodiazepines Scrn Not Detected Urine Cocaine Screen POSITIVE H U Marijuana (THC) Screen Not Detected COVID-19 (CHANDA) COVID-19 Clin Com Imaging Radiologist's Impressions: Impressions Chest X-Ray 03/04/21 12:52 IMPRESSION: Left base pneumonia. Chest CTA 03/04/21 15:23 IMPRESSION: No evidence of pulmonary embolism. Large left lower lobe pneumonia. Small right lower lobe bronchopneumonia. VTE: negative Abdomen/Pelvis CT 03/04/21 15:50 IMPRESSION: Low-attenuation slightly enlarged liver suggestive of fatty infiltration. Large left lower lobe pneumonia and small right lower lobe bronchopneumonia. Assessment and Plan (1) Pneumonia: Qualifiers: Laterality: left Lung location: lower lobe of lung Pneumonia type: due to unspecified organism Qualified Code(s): J18.9 - Pneumonia, unspecified organism Status: Acute 26-year-old female with a past medical history of polysubstance abuse presented to the hospital with a chief complaint of nausea vomiting/cough/shortness of breath. Noted to have pneumonia. Concern for aspiration. Admitted for further management. Aspiration pneumonia: Speech and swallow eval. CT scan showed large left lower lobe pneumonia and small right lower lobe pneumonia. Will continue vanc and Zosyn. Supplemental oxygen with goal saturation above 95%. Patient currently not in respiratory distress. Desirae starr.rgalindo Polysubstance abuse: Patient counseled to avoid illicit drug use. Opiate dependence: Patient on methadone maintenance program. Will defer to addiction Medicine in a.m. to confirm the methadone and to resume accordingly. Nausea/vomiting: Likely gastritis versus gastroenteritis. Supportive care. Hyponatremia: Likely low solute state. Patient is been given normal saline. Repeat BMP. Transaminitis/elevated T bili: Will obtain acute hepatitis panel. CT of the abdomen showed fatty liver. GI consult for further recommendations. Severely elevated LDH: Unclear etiology. Will repeat levels in the a.m.. Microscopic hematuria: Likely in setting of dehydration/cocaine use. Repeat urinalysis after IV hydration. If still persistent will defer to a.m. team to consider Urology consult. Mild rhabdomyolysis: Patient on IV fluids. DVT prophylaxis: Lovenox Code status: Full code
[2021-03-04] MEDS: Piperacillin Sodium/Tazobactam 3.375 GM in 0.9 % Sodium Chloride 50 ML IV (21:40)
[2021-03-04] MEDS: Enoxaparin Sodium 40 MG/0.4 ML SYRINGE SUBCUT (21:40)
[2021-03-04] MEDS: 0.9 % Sodium Chloride Flush 3 ML SYRINGE IVFLUSH (21:41)
[2021-03-04] MEDS: Dextrose 5 % and 0.9 % NaCl 1,000 ML 100 ML IVCONT (21:41)
[2021-03-05] VITALS (8 sets, daily range): BP systolic 125–143; BP diastolic 61–82; PULSE 93–105; RESP 16–20; TEMP 36.6–39.1; O2SAT 91–100
[2021-03-05] MEDS: Acetaminophen 325 MG TABLET 650 MG PO ×2 (03:23→10:21)
[2021-03-05] MEDS: Piperacillin Sodium/Tazobactam 3.375 GM in 0.9 % Sodium Chloride 50 ML IV ×4 (03:35→21:48)
[2021-03-05 06:57] LABS: Hemoglobin 9.9 g/dl (14.0-18.0); Mean Corpuscular HGB Conc 34.1 g/dl (31.0-36.0); Mean Corpuscular Hemoglobin 31.7 pg (27.0-33.0); Mean Corpuscular Volume 92.9 fL (80-98); Mean Platelet Volume 11.1 fL (9.4-12.4); NRBC Pct Auto 0.4 /100WBC (0.0-0.2); Platelet Count 208 X10*3/uL (160-400); Red Blood Count 3.12 X10*6/uL (4.60-5.80)
[2021-03-05 07:08] LABS: WBC ABN SCTR FOR CBC 1
[2021-03-05 07:15] LABS: Lactate Dehydrogenase 947 U/L (118-273)
[2021-03-05 07:20] LABS: Magnesium 2.3 mg/dL (1.6-2.6)
[2021-03-05 07:23] LABS: Alanine Aminotransferase 32 U/L (0-40); Alkaline Phosphatase 82 U/L (39-117); Anion Gap 14 (12-20); Aspartate Amino Transferase 139 U/L (5-37); Bilirubin Direct 2.7 mg/dL (0.0-0.5); Bilirubin Total 3.5 mg/dL (0.0-1.0); Blood Urea Nitrogen 13 mg/dL (9-16); Carbon Dioxide 25 mmol/L (22-29); Chloride 97 mmol/L (96-108); Creatinine Clr Calc Pharmacy 155.5; Estimated Glomerular Filt Rate > 60; Glucose Random 91 mg/dL (60-115); Potassium 3.5 mmol/L (3.3-5.1); Sodium 132 mmol/L (135-145)
[2021-03-05 07:52] LABS: Albumin Level 2.8 g/dL (3.5-5.0); Calcium 7.8 mg/dL (8.4-10.2); Total Protein 5.5 g/dL (6.5-8.0)
[2021-03-05] MEDS: vancomycin HCL 1,250 MG in 0.9 % Sodium Chloride 250 ML 166.67 MG IV ×2 (08:19→20:21)
[2021-03-05] MEDS: 0.9 % Sodium Chloride Flush 3 ML SYRINGE IVFLUSH ×3 (08:20→20:22)
[2021-03-05] MEDS: Dextrose 5 % and 0.9 % NaCl 1,000 ML 100 ML IVCONT ×2 (08:20→18:26)
[2021-03-05 08:34] LABS: Band Neutrophils Percent 27 % (3-5); Lymphocytes Percent Manual 8 % (20-40); Metamyelocytes Percent 3 %; Monocytes Percent Manual 5 % (2-11); Neutrophils Percent Manual 57 % (45-73); Nucleated Red Blood Cells 1 /100WBC (0-0)
[2021-03-05 08:41] LABS: Burr Cells 2+ (3-5) /OIF; RBC Morphology NOTED
[2021-03-05 08:42] LABS: Hypochromasia 1+ (5-14) /OIF; Lymphocytes Absolute Manual 1.7 X10*3/uL (0.6-4.8); Metamyelocytes Absolute 0.6 X10*3/uL; Monocytes Absolute Manual 1.1 X10*3/uL (0.0-1.2); Neutrophils Absolute Manual 18.1 X10*3/uL (2.2-7.9); Platelet Estimate NORMAL (NORMAL); Platelet Morphology Comment NORMAL; Polychromasia 1+ (0-2) /OIF; Toxic Granulation PRESENT; Toxic Vacuolation PRESENT; White Blood Count 21.6 X10*3/uL (4.8-10.8)
[2021-03-05 09:28] LABS: Hepatitis A Antibody IgM 0.35 Index (0-0.79); ~Hepatitis A Antibody IgM Nonreactive (Nonreactive)
--- NOTE | 2021-03-05 09:29 | MHC.CM.PN ---
CM met with Patient at bedside. Patient lives in an apartment with his Fiance and he is functionally independent. Patient receives his Methadone from [facility] (formerly [facility])and his goal for dc is to return home with resumption of these services. AISLINN has initiated and will follow for dc planning. PCP is from [facility].
[2021-03-05 09:59] LABS: HBc Num1 0.08 S/CO (0.00-0.79); HBsAGNum1 0.27 S/CO (0.00-0.99); Hepatitis B Core Antibody Nonreactive (Nonreactive); Hepatitis B Surface Antigen Negative (Negative); ~HepC Num1 0.08 S/CO (0.00-0.79); ~Hepatitis C Antibody Nonreactive (Nonreactive)
[2021-03-05 10:26] LABS: Glucose Urine UA 100 MG/DL (NEG); Leukocyte Esterase Urine NEG (NEG); Nitrite Urine NEG (NEG); Specific Gravity - Urine 1.015 (1.005-1.025); Urine Blood TRACE (NEG); Urine Ketones NEG (NEG); Urine Protein 2+ MG/DL (NEG-TRACE)
[2021-03-05 10:27] LABS: Appearance Urine CLEAR; Color Urine AMBER
[2021-03-05 10:35] LABS: Amorphous Sediment Urine 2+ /LPF; Squamous Epithelial Cell Urine TRACE /LPF; WBC Urine 0-2 /HPF (0-4)
[2021-03-05 11:04] LABS: HBS Num1 9.59 mIU/mL (0-7.99); HBS Num2 10.26 mIU/mL (0-7.99); HBS Num3 9.57 mIU/mL (0-7.99); ~Hepatitis B Surface Antibody GRAYZONE (Nonreactive)
--- NOTE | 2021-03-05 12:38 | MHC.SL.SWA ---
Speech Pathologist Impression: Within Functional Limits Risk of Aspiration Due to: Dysphasia Diet Status: No Change Liquid Consistency and Strategies for Safe Swallow: Liquid Intake Recommendation: Thin Liquid Intake Strategies: Unrestricted Solid Food Consistency: Dietary Recommendations: Regular Additional Modifications to Solid Foods: Oral Medication Intake: Whole with Liquid Compensatory Strategies and Precautions to be Taken for Safe Swallow: Sitting Upright (90 deg) Liquids from Cup Liquids from Straw Alternate Liquids/Solids Supervision While Eating and Drinking for Safe Swallow: None Needed Foods to Avoid: Swallowing Recommended Treatments: Recommendation for Speech: NA:Typical Evaluation Comment: Frequency/Duration: Date Range for Service Req: Timeline to reassess: Office Admin Clinican/Clinical Fellow: Yes: Lindy Chawla M.A., CF-FILM DEVELOPING MACHINE OPERATOR Supervisory Statement: I have reviewed and agree with the student/clinical fellow's documentation: Speech Language Pathologist:
--- NOTE | 2021-03-05 12:39 | P.CDIC_ITS ---
CDI Concurrent Query Service Date: 03/05/21 Documentation Clarification: Please clarify if you are treating a proba ble/suspected/likely or confirmed: Sepsis due to pneumonia Sepsis due to aspiration pneumonia Not treating Sepsis Please specify if known or undertermined Provider Response: Sepsis PLEASE DO NOT DELETE/MODIFY EXISTING CONTENT Additional information is needed in order to code to the highest accuracy and appropriate Severity of Illness (SOI). Please clarify the information noted below in your progress notes and discharge summary. Risk Factors/Clinical Indicators/Treatments Pneumonia-POA Temp 101.1 HR 116 RR 20+ pulse ox 92 WBC 22.3 Speech and swallow ordered for possible aspiration. SOB Vancoymcin, Zosyn, 2 liters oxygen. CDS: Ana Luisa Rodriguez CCS, CDIS Contact Number: [phone] Please Review the information above and exercise your independent professional judgment in responding to the query. If you concur, pleas document in the PROGRESS NOTES and DISCHARGE SUMMARY. If you do not agree with the query, please document in the query above. THIS QUERY IS PART OF THE PERMANENT MEDICAL RECORD
--- NOTE | 2021-03-05 12:45 | P.CNGI_ITS ---
History of Present Illness Data of Consult Service Date: 03/05/21 Requesting physician: Gloria Jackson Primary Care Provider: [facility] HPI Reason for consult: abn LFT 26-year-old with hx of polysubstance abuse incl cocaine and heroin as well as opiate dependence on methadone maintenance program, who i am asked to see for assessment of abn LFT patient semi somnolent when I came to see him, had just received methadone and on high flow O2 so most of hx from notes and nursing staff. Presented to [facility] with initial c/o worsening cough with increased SOB adn sputum. Had heroin yesterday and noted to have several episodes of non bloody emesis Denies any chest pain palpitations. Denies any numbness tingling, noted to be hypoxic on admission TESTS: LABS: hyponatremia, leukocytosis, normal lactate, elevated procalcitonin, CRP 43, COVID-19 negative. TB: 3.5 AST:132 CPK 700 LDH elevated Hep B/c Ab neg IMAGING: CT angio chest showed left lower lobe pneumonia, No evidence of pulmonary embolism--personally reviewed Review of Systems Review of Systems: Constitutional : No Fever, pos Chills, pos fatigue ENT/Mouth : No sore throat, No Rhinorrhea, No Swallowing Difficulty Eyes: No Eye Pain, No Swelling, No Redness Cardiovascular : No Chest Pain, positive SOB, No Orthopnea, no Edema Respiratory : pos Cough, pos Sputum, no Wheezing, positive dyspnea Gastrointestinal : pos Nausea, No Vomiting, No Diarrhea, No abdominal Pain, No Hematochezia, No Melena Genitourinary : No Dysuria, No Urinary Frequency, No Hematuria Musculoskeletal : No joint pain, No Myalgias Skin : No Skin Lesions, No rash Neuro : No Weakness, No Numbness, No Dizziness, No Headache Psych : No Anxiety/Panic, No Depression Heme/Lymph: No Bruising, No Lymphadenopathy Endocrine : No Polyuria, No Polydipsia All other systems reviewed and are negative [facility] Past Medical History Medical History Opiate use Social History Social History (Updated 03/04/21 @ 12:57 by Aicha Gao DO) Household Members: None Housing: Apartment Alcohol intake: never Patient Tobacco Use Status: Never used Tobacco Use of substances other than those prescribed or required for medical reasons: Yes Substance Use Type: Crack/Cocaine Last Used Substance: Just Prior to Admission Currently Displaying Signs/Symptoms of Drug Intoxication Withdrawal: No Any prior treatment program specific to substance use: Yes Have you been hit, kicked, punched, or otherwise hurt by someone within the past year? If so, by whom?: No Do you feel safe in your current relationship?: No Current Relationship Is there a partner from a previous relationship who is making you feel unsafe now?: No Are you made to feel afraid or neglected: No Spiritual Healthcare Practices: n/a Scientology Healthcare Practices: n/a Cultural Healthcare Practices: n/a Advance Directives: No Advance Directives Information Provided: No Do you have thoughts of harming others: None Do you have a plan to hurt others: No Plan Recently lost weight without trying: No Nutrition Risks: No Nutritional Risk Poor oral hygiene: No service: No Current occupational status: disabled Meds Allergies Allergy/AdvReac Type Severity Reaction Status Date / Time hydrocodone [Vicodin] Allergy Unknown stomach Verified 03/04/21 15:15 upset Active Medications: Current Medications Generic Name Dose Route Start Last Admin Trade Name Freq PRN Reason Stop Dose Admin Acetaminophen 650 mg 03/04/21 19:52 03/05/21 10:21 Acetaminophen 325 Mg Tablet PO 650 mg Q6H PRN Administration Pain, Mild (Pain Scale 1-3) Albuterol/Ipratropium 3 ml 03/04/21 19:52 Albuterol/Iprat 2.5/0.5mg 3 Ml Ampul.Neb INHALE Q4H PRN Shortness of Breath/Wheezing Albuterol/Ipratropium 3 ml 03/05/21 00:06 Albuterol/Iprat 2.5/0.5mg 3 Ml Ampul.Neb INHALE RQ6H PRN Shortness of Breath/Wheezing Enoxaparin Sodium 40 mg 03/04/21 20:00 03/04/21 21:40 Enoxaparin Sodium 40 Mg/0.4 Ml Syringe SUBCUT 40 mg Q24H TISH Administration Dextrose/Sodium Chloride 1,000 mls @ 100 mls/hr 03/04/21 20:00 03/05/21 08:20 D5ns IVCONT 100 mls/hr .Q10H TISH Administration Piperacillin Sod/Tazobactam 50 mls @ 100 mls/hr 03/04/21 22:00 03/05/21 10:54 Sod 3.375 gm/ Sodium Chloride IV Infused Q6H TISH Infusion Vancomycin HCl 1,250 mg/ 250 mls @ 166.667 mls/hr 03/05/21 08:00 03/05/21 09:57 Sodium Chloride IV Infused Q12H TISH Infusion Magnesium Hydroxide 30 ml 03/04/21 19:52 Milk Of Magnesia 30 Ml Oral.Susp PO DAILY PRN Constipation Methadone HCl 130 mg 03/05/21 12:30 Methadone Hcl 1 Mg/0.1 Ml Oral.Conc PO DAILY TISH Ondansetron HCl 4 mg 03/04/21 19:52 Ondansetron Hcl 4 Mg/2 Ml Vial IVPUSH Q8H PRN Nausea and Vomiting Oxycodone HCl 5 mg 03/04/21 19:52 Oxycodone Hcl Immed Release 5 Mg Tablet PO Q6H PRN Pain, Severe (Pain Scale 7-10) Pharmacy Consult 1 each 03/04/21 12:51 Consult Rx Perform Med Rec MISCELLANE ONCE PRN Consult order Pharmacy Consult 1 each 03/04/21 19:52 Consult Rx Vancomycin Dosing MISCELLANE DAILY PRN Consult order Sodium Chloride 3 ml 03/05/21 00:00 03/05/21 08:20 0.9 % Sodium Chloride Flush 3 Ml Syringe IVFLUSH 3 ml QSHIFT [facility] Administration Home Medications Medication Instructions Recorded Confirmed Last Taken Type methadone 140 mg PO DAILY 03/04/21 03/04/21 03/03/21 History Physical Exam Vital Signs: Vital Signs: Last Vital Signs Temp 99.5 F 03/05/21 11:14 Pulse 102 H 03/05/21 11:14 Resp 19 03/05/21 11:14 BP 139/72 03/05/21 11:14 Pulse Ox 91 L 03/05/21 11:14 Oxygen Flow Rate 2 03/04/21 13:56 Body Mass Index 29.4 EXAM: GENERAL: The patient is well developed, semi somnolent, on O2, SOB VITAL SIGNS:see workflow HEENT: mild icteric sclerae, PERRLA, EOMI. Oropharynx clear. Moist mucous membranes. Conjunctivae appear well perfused. No thyroid mass. CHEST: Chest wall is nontender. HEART: Regular rate and rhythm without murmurs. LUNGS: Rhinchi and creps both lungs. ABDOMEN: Soft, positive bowel sounds, nontender, no organomegaly.no flank tenderness SKIN: No rash, no excessive bruising, petechiae, or purpura. NEUROLOGIC: Cranial nerves II-XII intact without motor/sensory deficit. Psych--semi somnolent Results Labs CBC & Chem 7: 03/05/21 05:49 03/05/21 05:49 Labs: Short CBC 03/04/21 03/05/21 Range/Units 14:35 05:49 WBC 22.3 H 21.6 H (4.8-10.8) X10*3/uL Hgb 12.3 L 9.9 L (14.0-18.0) g/dl Hct 35.4 L 29.0 L (42-52) % Plt Count 229 208 (160-400) X10*3/uL BMP 03/04/21 03/05/21 14:35 05:49 Sodium 129 L 132 L Potassium 4.0 3.5 Chloride 89 L 97 Carbon Dioxide 28 25 BUN 18 H 13 Creatinine 1.03 0.81 Calcium 8.8 7.8 L D Cardiac Enzymes 03/04/21 03/05/21 Range/Units 14:35 05:49 Total Creatine Kinase 833 H 702 H (38-174) U/L Liver Function 03/04/21 03/05/21 Range/Units 14:35 05:49 Total Bilirubin 5.3 H 3.5 H (0.0-1.0) mg/dL Direct Bilirubin 3.7 H 2.7 H (0.0-0.5) mg/dL AST 138 H 139 H (5-37) U/L ALT 43 H 32 (0-40) U/L Alkaline Phosphatase 98 82 (39-117) U/L Albumin 3.6 2.8 L D (3.5-5.0) g/dL Urine 03/04/21 03/05/21 Range/Units 16:02 10:19 Urine Color ORANGE KANDICE Urine Appearance CLEAR CLEAR Urine pH 6.0 6.0 (5.0-8.0) Ur Specific [place] 1.025 1.015 (1.005-1.025) Urine Protein 2+ H 2+ H (NEG-TRACE) MG/DL Urine Glucose (UA) 100 H 100 H (NEG) MG/DL Assessment and Plan (1) Elevated liver function tests: Status: Acute (2) Hyperbilirubinemia: Status: Acute (3) Pneumonia: Qualifiers: Laterality: left Lung location: lower lobe of lung Pneumonia type: due to unspecified organism Qualified Code(s): J18.9 - Pneumonia, unspecified organism Status: Acute 1/ Elevated LFT from sepsis and biliary cholestasis, possibly also element of ischemic hepatopathy. CPK is also high and this can give the AST elevation. PLAN: 1/ treat sepsis as doing, avoid hepatotoxic drugs and be wary of liver SE of antibiotics in particular 2/ check acetominophen level, Hep B DNA and Hep C RNA levels. Trend LFT and INR, if ischemic in origin then may get worse next few days before pulling back 3/ US liver with doppler 4/ consider ECHO r/o endocartitis Procedures Date of Service Date of Service: 03/05/21
--- NOTE | 2021-03-05 13:59 | HO.PM.IMPN ---
Subjective Subjective Date of Service: 03/05/21 Interval History: sob Cardiovascular Cardiovascular: Reports no additional cardiovascular complaints Gastrointestinal Gastrointestinal: Reports no additional gastrointestinal complaints Physical Exam Vital Signs: Vital Signs: Last Vital Signs Temp 99.5 F 03/05/21 11:14 Pulse 102 H 03/05/21 11:14 Resp 19 03/05/21 11:14 BP 139/72 03/05/21 11:14 Pulse Ox 91 L 03/05/21 11:14 Oxygen Flow Rate 2 03/04/21 13:56 Body Mass Index 29.4 General: AO X 3, ill appearing Resp: diminshed over left base CVS: S1,S2,RRR GI: soft, non tender, non distended Neuro: motor grossly intact Psych: appropriate affect Objective Data Current Medications Generic Name Dose Route Start Last Admin Trade Name Freq PRN Reason Stop Dose Admin Acetaminophen 650 mg 03/04/21 19:52 03/05/21 10:21 Acetaminophen 325 Mg Tablet PO 650 mg Q6H PRN Administration Pain, Mild (Pain Scale 1-3) Albuterol/Ipratropium 3 ml 03/04/21 19:52 Albuterol/Iprat 2.5/0.5mg 3 Ml Ampul.Neb INHALE Q4H PRN Shortness of Breath/Wheezing Albuterol/Ipratropium 3 ml 03/05/21 00:06 Albuterol/Iprat 2.5/0.5mg 3 Ml Ampul.Neb INHALE RQ6H PRN Shortness of Breath/Wheezing Enoxaparin Sodium 40 mg 03/04/21 20:00 03/04/21 21:40 Enoxaparin Sodium 40 Mg/0.4 Ml Syringe SUBCUT 40 mg Q24H TISH Administration Dextrose/Sodium Chloride 1,000 mls @ 100 mls/hr 03/04/21 20:00 03/05/21 08:20 D5ns IVCONT 100 mls/hr .Q10H TISH Administration Piperacillin Sod/Tazobactam 50 mls @ 100 mls/hr 03/04/21 22:00 03/05/21 10:54 Sod 3.375 gm/ Sodium Chloride IV Infused Q6H TISH Infusion Vancomycin HCl 1,250 mg/ 250 mls @ 166.667 mls/hr 03/05/21 08:00 03/05/21 09:57 Sodium Chloride IV Infused Q12H TISH Infusion Magnesium Hydroxide 30 ml 03/04/21 19:52 Milk Of Magnesia 30 Ml Oral.Susp PO DAILY PRN Constipation Methadone HCl 130 mg 03/05/21 12:30 03/05/21 13:22 Methadone Hcl 1 Mg/0.1 Ml Oral.Conc PO 130 mg DAILY TISH Administration Ondansetron HCl 4 mg 03/04/21 19:52 Ondansetron Hcl 4 Mg/2 Ml Vial IVPUSH Q8H PRN Nausea and Vomiting Oxycodone HCl 5 mg 03/04/21 19:52 Oxycodone Hcl Immed Release 5 Mg Tablet PO Q6H PRN Pain, Severe (Pain Scale 7-10) Pharmacy Consult 1 each 03/04/21 12:51 Consult Rx Perform Med Rec MISCELLANE ONCE PRN Consult order Pharmacy Consult 1 each 03/04/21 19:52 Consult Rx Vancomycin Dosing MISCELLANE DAILY PRN Consult order Sodium Chloride 3 ml 03/05/21 00:00 03/05/21 08:20 0.9 % Sodium Chloride Flush 3 Ml Syringe IVFLUSH 3 ml QSHIFT TISH Administration Labs CBC & Chem 7: 03/05/21 05:49 03/05/21 05:49 Assessment and Plan (1) Pneumonia: Status: Acute Assessment and Plan: 26-year-old male presented with shortness of breath severe sepsis present on admission secondary to left lower lobe pneumonia complicated by acute hypoxic respiratory failure continue vancomycin and Zosyn follow-up cultures, id, pulm acute hepatitis likely due to sepsis rule out acute hep C questionable cinnamon if in toxicity, was not checked, however, patient reports DayQuil use. monitor lfts opioid dependence methadone
--- NOTE | 2021-03-05 16:08 | MHC.RECOVRN ---
26 year old male presented to [facility] ED on 03/04 via EMS due to Patient at methadone clinic today when he had an episode of syncope per wildland fire fighter. Upon evaluation, pt found to be febrile with SOB. Pt admitted for management of pneumonia. T/w met with?pt in 470 after consult had been placed to Addiction Medicine for opiate dependence. Pt reports being on methadone through [facility]. Pt reports heroin use, 2-3 bags inh, last use before being sick. Pt received 130 mg of methadone today. Pt states it has been a few days since last dose,?however, pt presented to [facility] from the [facility]. Pt reports withdrawal symptoms have subsided after methadone.? Pt currently tired and would like to rest. T/w informed pt that t/w available as needed and will check in tomorrow. Pt agreeable.?
--- NOTE | 2021-03-05 16:42 | PM.EVENT ---
Event Note Date of Service: 03/05/21 Event Note: PULMONARY CONSULT NOTE. PATIENT WAS SEEN BY ME THIS MORNING FOR PULMONARY CONSULTATION. HISTORY, LAB AND IMAGING REVIEWED. COMPLETE NOTE IS DICTATED. A: POLY SUBSTANCE HAVE USE. LARGE PNEUMONIA LEFT LOWER LOBE, MOST LIKELY COMMUNITY-ACQUIRED OR SECONDARY TO PULMONARY ASPIRATION. ACUTE RESPIRATORY FAILURE WITH SIGNIFICANT HYPOXEMIA, SECONDARY TO ABOVE P: AGREE WITH THE CURRENT TREATMENT. WATCH CLOSELY FOR ANY WORSENING OF THE RESPIRATORY DISTRESS. WATCH FOR WITHDRAWAL SYMPTOMS.
[2021-03-05] MEDS: Enoxaparin Sodium 40 MG/0.4 ML SYRINGE SUBCUT (20:22)
[2021-03-06] VITALS (8 sets, daily range): BP systolic 116–130; BP diastolic 58–63; PULSE 78–92; RESP 18–97; TEMP 36.1–37.7; O2SAT 92–99
[2021-03-06] MEDS: Piperacillin Sodium/Tazobactam 3.375 GM in 0.9 % Sodium Chloride 50 ML IV ×4 (04:46→21:40)
[2021-03-06] MEDS: Dextrose 5 % and 0.9 % NaCl 1,000 ML 100 ML IVCONT (04:48)
[2021-03-06 07:14] LABS: Hematocrit 26.5 % (42-52); Hemoglobin 9.1 g/dl (14.0-18.0); Mean Corpuscular HGB Conc 34.3 g/dl (31.0-36.0); Mean Corpuscular Hemoglobin 32.4 pg (27.0-33.0); Mean Corpuscular Volume 94.3 fL (80-98); Mean Platelet Volume 11.1 fL (9.4-12.4); NRBC Pct Auto 0.2 /100WBC (0.0-0.2); Platelet Count 241 X10*3/uL (160-400); Red Blood Count 2.81 X10*6/uL (4.60-5.80); Red Cell Distribution Width 12.7 % (11.0-16.0); White Blood Count 26.6 X10*3/uL (4.8-10.8)
[2021-03-06 07:42] LABS: Alanine Aminotransferase 33 U/L (0-40); Albumin Level 2.5 g/dL (3.5-5.0); Alkaline Phosphatase 89 U/L (39-117); Anion Gap 11 (12-20); Aspartate Amino Transferase 148 U/L (5-37); Bilirubin Direct 1.9 mg/dL (0.0-0.5); Bilirubin Total 2.7 mg/dL (0.0-1.0); Blood Urea Nitrogen 8 mg/dL (9-16); Calcium 7.9 mg/dL (8.4-10.2); Carbon Dioxide 27 mmol/L (22-29); Chloride 100 mmol/L (96-108); Creatinine Clr Calc Pharmacy 179.9; Estimated Glomerular Filt Rate > 60; Glucose Fasting 87 mg/dL (60-99); Magnesium 2.1 mg/dL (1.6-2.6); Potassium 3.2 mmol/L (3.3-5.1); Sodium 135 mmol/L (135-145); Total Protein 5.1 g/dL (6.5-8.0)
[2021-03-06 08:17] LABS: Vancomycin Trough 3.8 mcg/mL (10.0-20.0)
--- NOTE | 2021-03-06 10:50 | HO.PM.IMPN ---
Subjective Subjective Date of Service: 03/06/21 Interval History: sob improved on high flow Cardiovascular Cardiovascular: Reports no additional cardiovascular complaints Gastrointestinal Gastrointestinal: Reports no additional gastrointestinal complaints Physical Exam Vital Signs: Vital Signs: Last Vital Signs Temp 99.8 F 03/06/21 07:34 Pulse 91 03/06/21 07:34 Resp 20 03/06/21 07:34 BP 129/59 L 03/06/21 07:34 Pulse Ox 97 03/06/21 07:34 Oxygen Flow Rate 2 03/04/21 13:56 Body Mass Index 29.4 General: AO X 3, ill appearing Resp: diminshed over left base CVS: S1,S2,RRR GI: soft, non tender, non distended Neuro: motor grossly intact Psych: appropriate affect Objective Data Current Medications Generic Name Dose Route Start Last Admin Trade Name Freq PRN Reason Stop Dose Admin Acetaminophen 650 mg 03/04/21 19:52 03/05/21 10:21 Acetaminophen 325 Mg Tablet PO 650 mg Q6H PRN Administration Pain, Mild (Pain Scale 1-3) Albuterol/Ipratropium 3 ml 03/04/21 19:52 Albuterol/Iprat 2.5/0.5mg 3 Ml Ampul.Neb INHALE Q4H PRN Shortness of Breath/Wheezing Albuterol/Ipratropium 3 ml 03/05/21 00:06 Albuterol/Iprat 2.5/0.5mg 3 Ml Ampul.Neb INHALE RQ6H PRN Shortness of Breath/Wheezing Enoxaparin Sodium 40 mg 03/04/21 20:00 03/05/21 20:22 Enoxaparin Sodium 40 Mg/0.4 Ml Syringe SUBCUT 40 mg Q24H TISH Administration Guaifenesin 10 ml 03/05/21 16:24 Guaifenesin 200 Mg/10 Ml 10 Ml Liquid PO Q6H PRN cough Piperacillin Sod/Tazobactam 50 mls @ 100 mls/hr 03/04/21 22:00 03/06/21 10:24 Sod 3.375 gm/ Sodium Chloride IV 100 mls/hr Q6H TISH Administration Vancomycin HCl 1,250 mg/ 250 mls @ 166.667 mls/hr 03/06/21 11:00 Sodium Chloride IV Q8H TISH Magnesium Hydroxide 30 ml 03/04/21 19:52 Milk Of Magnesia 30 Ml Oral.Susp PO DAILY PRN Constipation Methadone HCl 130 mg 03/05/21 12:30 03/06/21 09:08 Methadone Hcl 1 Mg/0.1 Ml Oral.Conc PO 130 mg DAILY TISH Administration Ondansetron HCl 4 mg 03/04/21 19:52 Ondansetron Hcl 4 Mg/2 Ml Vial IVPUSH Q8H PRN Nausea and Vomiting Oxycodone HCl 5 mg 03/04/21 19:52 Oxycodone Hcl Immed Release 5 Mg Tablet PO Q6H PRN Pain, Severe (Pain Scale 7-10) Pharmacy Consult 1 each 03/04/21 12:51 Consult Rx Perform Med Rec MISCELLANE ONCE PRN Consult order Pharmacy Consult 1 each 03/04/21 19:52 Consult Rx Vancomycin Dosing MISCELLANE DAILY PRN Consult order Sodium Chloride 3 ml 03/05/21 00:00 03/06/21 07:39 0.9 % Sodium Chloride Flush 3 Ml Syringe IVFLUSH Not Given QSHIFT [facility] Labs CBC & Chem 7: 03/06/21 06:58 03/06/21 06:58 Microbiology Microbiology Results: Microbiology 03/04/21 14:56 Blood - Venous Blood Culture - Preliminary No growth after 24 hours. 03/04/21 14:35 Blood - Venous Blood Culture - Preliminary No growth after 24 hours. Assessment and Plan (1) Pneumonia: Status: Acute Assessment and Plan: 26-year-old male presented with shortness of breath severe sepsis present on admission secondary to left lower lobe pneumonia complicated by acute hypoxic respiratory failure now requiring high flow continue vancomycin and Zosyn check urine strep, legionella, rvp, nasal mrsa follow-up cultures - negative so far id, pulm acute hepatitis likely due to sepsis rule out acute hep C - check pcr questionable acetominophen toxicity, was not checked, however, patient reports DayQuil use. improving opioid dependence methadone
[2021-03-06] MEDS: vancomycin HCL 1,250 MG in 0.9 % Sodium Chloride 250 ML 166.67 MG IV ×2 (11:43→18:09)
[2021-03-06 14:08] LABS: Adenovirus PCR Not Detected (Not Detect.); Bordetella parapertussis PCR Not Detected (Not Detect.); Bordetella pertussis PCR Not Detected (Not Detect.); Chlamydia pneumoniae PCR Not Detected (Not Detect.); Coronavirus 229E PCR Not Detected (Not Detect.); Coronavirus HKU1 PCR Not Detected (Not Detect.); Coronavirus NL63 PCR Not Detected (Not Detect.); Coronavirus OC43 PCR Not Detected (Not Detect.); Human metapneumovirus PCR Not Detected (Not Detect.); Influenza A PCR Not Detected (Not Detect.); Influenza B PCR Not Detected (Not Detect.); Mycoplasma pneumoniae PCR Not Detected (Not Detect.); Parainfluenza 1 PCR Not Detected (Not Detect.); Parainfluenza 2 PCR Not Detected (Not Detect.); Parainfluenza 3 PCR Not Detected (Not Detect.); Parainfluenza 4 PCR Not Detected (Not Detect.); RSV PCR Not Detected (Not Detect.); Rhino/Enterovirus PCR Not Detected (Not Detect.); SARS-CoV-2 PCR Not Detected (Not Detect.)
--- NOTE | 2021-03-06 15:02 | MHC.RECOVRN ---
T/w met with pt to f/u from yesterday. Pt reports feeling better, regarding withdrawal, and is not experiencing any withdrawal symptoms. During discussion, t/w noticed white patches on pts tongue. Pt denies any discomfort. Information given to pts RN. T/w available as needed.
[2021-03-06] MEDS: 0.9 % Sodium Chloride Flush 3 ML SYRINGE IVFLUSH ×2 (15:03→21:39)
[2021-03-06 15:18] LABS: MRSA Nasal PCR NEGATIVE (Negative); SA Nasal PCR NEGATIVE (Negative)
--- NOTE | 2021-03-06 17:18 | PM.PNPUL ---
Subjective Subjective Date of Service: 03/06/21 Principal diagnosis: PNEUMONIA LEFT LOWER LOBE/ RESPIRATORY FAILURE Interval history: PATIENT REMAINS QUITE SHORT OF BREATH, AND HYPOXOMIC, SYMPTOM MEDICALLY IMPROVED WITH THE USE OF HIGH-FLOW SINCE THIS MORNING. Objective Data Labs CBC & Chem 7: 03/06/21 06:58 03/06/21 06:58 Labs: Laboratory Results - last 24 hr 03/06/21 03/06/21 03/06/21 06:58 06:58 06:58 WBC 26.6 H RBC 2.81 L Hgb 9.1 L Hct 26.5 L MCV 94.3 MCH 32.4 MCHC 34.3 RDW 12.7 Plt Count 241 MPV 11.1 Absolute Nucleated RBC 0.060 H Nucleated RBC % (auto) 0.2 Sodium 135 Potassium 3.2 L Chloride 100 Carbon Dioxide 27 Anion Gap 11 L BUN 8 L Creatinine 0.70 Estim Creat Clear Calc 179.9 Estimated GFR > 60 Fasting Glucose 87 Calcium 7.9 L Magnesium 2.1 Total Bilirubin 2.7 H Direct Bilirubin 1.9 H AST 148 H ALT 33 Alkaline Phosphatase 89 Total Protein 5.1 L Albumin 2.5 L Nasal Screen MRSA (PCR) Nasal S. aureus Screen Nasal MRSA/S.aureus Interp Vancomycin Trough 3.8 L Respiratory Panel [place] Adenovirus (Rapid PCR) B.pert (TEM-PCR) B.parapertussis DNA PCR C. pneumoniae DNA (PCR) Coronavirus OC43 (PCR) Coronavirus HKU1 (PCR) Coronavirus 229E (PCR) Coronavirus NL63 (PCR) Human Metapneumovir PCR Influenza A (RT-PCR) Influenza B (RT-PCR) M. pneumoniae (PCR) Parainfluenza 1 (PCR) Parainfluenza 2 (PCR) Parainfluenza 3 (PCR) Parainfluenza 4 (PCR) RSV (PCR) Entero/Rhino (PCR) SARS-CoV-2 RNA (RT-PCR) 03/06/21 03/06/21 13:40 13:40 WBC RBC Hgb Hct MCV MCH MCHC RDW Plt Count MPV Absolute Nucleated RBC Nucleated RBC % (auto) Sodium Potassium Chloride Carbon Dioxide Anion Gap BUN Creatinine Estim Creat Clear Calc Estimated GFR Fasting Glucose Calcium Magnesium Total Bilirubin Direct Bilirubin AST ALT Alkaline Phosphatase Total Protein Albumin Nasal Screen MRSA (PCR) NEGATIVE Nasal S. aureus Screen NEGATIVE Nasal MRSA/S.aureus Interp SEE NOTE Vancomycin Trough Respiratory Panel [place] See Note Adenovirus (Rapid PCR) Not Detected B.pert (TEM-PCR) Not Detected B.parapertussis DNA PCR Not Detected C. pneumoniae DNA (PCR) Not Detected Coronavirus OC43 (PCR) Not Detected Coronavirus HKU1 (PCR) Not Detected Coronavirus 229E (PCR) Not Detected Coronavirus NL63 (PCR) Not Detected Human Metapneumovir PCR Not Detected Influenza A (RT-PCR) Not Detected Influenza B (RT-PCR) Not Detected M. pneumoniae (PCR) Not Detected Parainfluenza 1 (PCR) Not Detected Parainfluenza 2 (PCR) Not Detected Parainfluenza 3 (PCR) Not Detected Parainfluenza 4 (PCR) Not Detected RSV (PCR) Not Detected Entero/Rhino (PCR) Not Detected SARS-CoV-2 RNA (RT-PCR) Not Detected Microbiology Microbiology Results: Microbiology 03/04/21 14:56 Blood - Venous Blood Culture - Preliminary No growth after 48 hours. 03/04/21 14:35 Blood - Venous Blood Culture - Preliminary No growth after 48 hours. Review of Systems Review of Systems Yes Unobtainable due to mental status Physical Exam Vital Signs: Vital Signs: Last Vital Signs Temp 97.3 F 03/06/21 15:17 Pulse 78 03/06/21 15:17 Resp 97 H 03/06/21 15:52 BP 116/60 03/06/21 15:17 Pulse Ox 99 03/06/21 15:17 Oxygen Flow Rate 2 03/04/21 13:56 Body Mass Index 29.4 Const: Other: ACUTELY SICK-LOOKING, SHORT OF BREATH, MORE COMFORTABLE WITH HIGH-FLOW General: comfortable, no acute distress, alert and awake HENMT: Head: Yes normal to inspection General nose exam: No nasal polyps present and No nasal discharge present Face and sinus: Yes sinuses nontender Mouth: oropharynx normal Throat: Yes posterior oropharynx normal Eyes: General: appearance normal, both eyes and all related structures Neck: Neck: Yes normal visual inspection, Yes no lymphadenopathy, Yes trachea midline and Yes no JVD Thyroid: Thyroid normal Chest: Chest palpation & inspection: normal inspection of the chest, normal palpation of entire chest wall and no tenderness Resp: Other: CHEST IS DULL TO PERCUSSION OVER THE LEFT LOWER HALF, BREATH SOUNDS ARE DECREASED OVER THE LEFT LOWER LOBE. A FEW INSPIRATORY CREPS HEARD OVER THE LEFT BASE Cardio: Palpation: normal PMI Rate: regular rate Rhythm: regular rhythm Heart sounds: no gallops and no murmurs Peripheral pulses: Peripheral pulses 2+ throughout GI: Palpation (GI): Soft to palpation, nontender, No hepatosplenomegaly present and no masses Auscultation: normal bowel sounds Back/Spine/Pelvis: Thoracic/Lumbar Spine: thoracic and lumbar spine normal to inspection Skin: General skin exam: no rashes or lesions noted Neuro: General: no focal motor deficits Cranial nerves: Yes CN's II-XII intact bilaterally Extrem: General: Yes normal to inspection, Yes no clubbing, cyanosis or edema, Yes no calf tenderness and No venous stasis dermatitis Psych: Speech and movement: Normal speech and movement present Procedures Date of Service Date of Service: 03/06/21 Assessment and Plan Assessment and plan (1) Pneumonia: Problem details: EXTENSIVE PNEUMONIA LEFT LOWER LOBE. CULTURE REPORTS ARE PENDING. TX AT PRESENT CONTINUE WITH VANCOMYCIN AND ZOSYN. Status: Acute (2) Respiratory failure with hypoxia: Problem details: ACUTE RESPIRATORY DISTRESS, REQUIRING HIGH CONCENTRATIONS OF OXYGEN. TX CONTINUE HIGH-FLOW AND MAY ALTERNATE WITH VENTIMASK. GOAL IS TO KEEP O2 SAT ABOVE 90%, AND ALSO TO KEEP HER COMFORTABLE Status: Acute (3) Substance abuse or dependence: Problem details: PATIENT NEEDS TO BE WATCH FOR WITHDRAWAL SYNDROME Status: Acute Time Spent With Patient Time: Total time spent is greater than 50% in coordination of care (as documented) at patient's floor/unit and/or counseling patient: Time with patient: 15 - 24 minutes
[2021-03-06] MEDS: Enoxaparin Sodium 40 MG/0.4 ML SYRINGE SUBCUT (21:37)
--- NOTE | 2021-03-06 21:44 | P.CNID_ITS ---
History of Present Illness Data of Consult Service Date: 03/06/21 Requesting physician: Raymundo Dotson Primary Care Provider: [facility] Reason for consult: shortness of breath He presents with cough and shortness of breath There is concern over IVDU. He has hypoxia and LLL pneumonia Review of Systems Review of Systems: Yes all other systems are reviewed and are negative PMFSH Past Medical History Medical History Opiate use Respiratory failure with hypoxia Respiratory failure with hypoxia Substance abuse or dependence Family History Family history: reviewed and not pertinent Social History Social History Household Members: None Housing: Apartment Alcohol intake: never Patient Tobacco Use Status: Never used Tobacco Use of substances other than those prescribed or required for medical reasons: Yes Substance Use Type: Crack/Cocaine Last Used Substance: Just Prior to Admission Currently Displaying Signs/Symptoms of Drug Intoxication Withdrawal: No Any prior treatment program specific to substance use: Yes Have you been hit, kicked, punched, or otherwise hurt by someone within the past year? If so, by whom?: No Do you feel safe in your current relationship?: No Current Relationship Is there a partner from a previous relationship who is making you feel unsafe now?: No Are you made to feel afraid or neglected: No Spiritual Healthcare Practices: n/a Mu-Ism Healthcare Practices: n/a Cultural Healthcare Practices: n/a Advance Directives: No Advance Directives Information Provided: No Do you have thoughts of harming others: None Do you have a plan to hurt others: No Plan Recently lost weight without trying: No Nutrition Risks: No Nutritional Risk Poor oral hygiene: No service: No Current occupational status: disabled Meds Allergies Allergy/AdvReac Type Severity Reaction Status Date / Time hydrocodone [Vicodin] Allergy Unknown stomach Verified 03/04/21 15:15 upset Active Medications: Current Medications Generic Name Dose Route Start Last Admin Trade Name Freq PRN Reason Stop Dose Admin Acetaminophen 650 mg 03/04/21 19:52 03/05/21 10:21 Acetaminophen 325 Mg Tablet PO 650 mg Q6H PRN Administration Pain, Mild (Pain Scale 1-3) Albuterol/Ipratropium 3 ml 03/04/21 19:52 Albuterol/Iprat 2.5/0.5mg 3 Ml Ampul.Neb INHALE Q4H PRN Shortness of Breath/Wheezing Albuterol/Ipratropium 3 ml 03/05/21 00:06 Albuterol/Iprat 2.5/0.5mg 3 Ml Ampul.Neb INHALE RQ6H PRN Shortness of Breath/Wheezing Enoxaparin Sodium 40 mg 03/04/21 20:00 03/06/21 21:37 Enoxaparin Sodium 40 Mg/0.4 Ml Syringe SUBCUT 40 mg Q24H TISH Administration Guaifenesin 10 ml 03/05/21 16:24 Guaifenesin 200 Mg/10 Ml 10 Ml Liquid PO Q6H PRN cough Piperacillin Sod/Tazobactam 50 mls @ 100 mls/hr 03/04/21 22:00 03/06/21 21:40 Sod 3.375 gm/ Sodium Chloride IV 100 mls/hr Q6H TISH Administration Vancomycin HCl 1,250 mg/ 250 mls @ 166.667 mls/hr 03/06/21 11:00 03/06/21 19:54 Sodium Chloride IV Infused Q8H TISH Infusion Doxycycline Hyclate 100 mg/ 250 mls @ 166.67 mls/hr 03/06/21 21:45 Sodium Chloride IV Q12H TISH Magnesium Hydroxide 30 ml 03/04/21 19:52 Milk Of Magnesia 30 Ml Oral.Susp PO DAILY PRN Constipation Methadone HCl 130 mg 03/05/21 12:30 03/06/21 09:08 Methadone Hcl 1 Mg/0.1 Ml Oral.Conc PO 130 mg DAILY TISH Administration Ondansetron HCl 4 mg 03/04/21 19:52 Ondansetron Hcl 4 Mg/2 Ml Vial IVPUSH Q8H PRN Nausea and Vomiting Oxycodone HCl 5 mg 03/04/21 19:52 Oxycodone Hcl Immed Release 5 Mg Tablet PO Q6H PRN Pain, Severe (Pain Scale 7-10) Pharmacy Consult 1 each 03/04/21 12:51 Consult Rx Perform Med Rec MISCELLANE ONCE PRN Consult order Pharmacy Consult 1 each 03/04/21 19:52 Consult Rx Vancomycin Dosing MISCELLANE DAILY PRN Consult order Sodium Chloride 3 ml 03/05/21 00:00 03/06/21 21:39 0.9 % Sodium Chloride Flush 3 Ml Syringe IVFLUSH 3 ml QSHIFT TISH Administration Home Medications Medication Instructions Recorded Confirmed Last Taken Type methadone 140 mg PO DAILY 03/04/21 03/04/21 03/03/21 History Physical Exam Vital Signs: Vital Signs: Last Vital Signs Temp 98.6 F 03/06/21 19:53 Pulse 86 03/06/21 19:53 Resp 18 03/06/21 19:53 BP 122/58 L 03/06/21 19:53 Pulse Ox 97 03/06/21 19:53 Oxygen Flow Rate 2 03/04/21 13:56 Body Mass Index 29.4 Const: General: cooperative HENMT: Head: Yes normal to inspection Mouth: Normal oral and palatal mucosa present Resp: Effort & Inspection: normal respiratory effort Cardio: Rate: regular rate Rhythm: regular rhythm GI: Palpation (GI): Soft to palpation and nontender Skin: General skin exam: no rashes or lesions noted Extrem: General: Yes normal to inspection Results Labs CBC & Chem 7: 03/06/21 06:58 03/06/21 06:58 Labs: Short CBC 03/06/21 Range/Units 06:58 WBC 26.6 H (4.8-10.8) X10*3/uL Hgb 9.1 L (14.0-18.0) g/dl Hct 26.5 L (42-52) % Plt Count 241 (160-400) X10*3/uL BMP 03/06/21 06:58 Sodium 135 Potassium 3.2 L Chloride 100 Carbon Dioxide 27 BUN 8 L Creatinine 0.70 Calcium 7.9 L Liver Function 03/06/21 Range/Units 06:58 Total Bilirubin 2.7 H (0.0-1.0) mg/dL Direct Bilirubin 1.9 H (0.0-0.5) mg/dL AST 148 H (5-37) U/L ALT 33 (0-40) U/L Alkaline Phosphatase 89 (39-117) U/L Albumin 2.5 L (3.5-5.0) g/dL Microbiology Microbiology Results: Microbiology 03/04/21 14:56 Blood - Venous Blood Culture - Preliminary No growth after 48 hours. 03/04/21 14:35 Blood - Venous Blood Culture - Preliminary No growth after 48 hours. Assessment and Plan (1) Respiratory failure with hypoxia: Status: Acute Concern over HIV,immune suppression Check HIV test Legionella Treat with Doxycycline, Vancomycin and Zosyn or CTX appropriate at this time Duration to be determined (2) Pneumonia: Qualifiers: Laterality: left Lung location: lower lobe of lung Pneumonia type: due to unspecified organism Qualified Code(s): J18.9 - Pneumonia, unspecified organism Status: Acute (3) Substance abuse or dependence: Status: Acute
[2021-03-06] MEDS: Doxycycline Hyclate 100 MG in 0.9 % Sodium Chloride 250 ML 166.67 MG IV (22:17)
[2021-03-07] VITALS (9 sets, daily range): BP systolic 108–135; BP diastolic 53–78; PULSE 71–88; RESP 18–24; TEMP 36–37; O2SAT 91–99
[2021-03-07] MEDS: vancomycin HCL 1,250 MG in 0.9 % Sodium Chloride 250 ML 166.67 MG IV (02:56)
[2021-03-07] MEDS: Piperacillin Sodium/Tazobactam 3.375 GM in 0.9 % Sodium Chloride 50 ML IV ×4 (04:49→23:06)
[2021-03-07 07:07] LABS: Hematocrit 26.7 % (42-52); Hemoglobin 8.9 g/dl (14.0-18.0); Mean Corpuscular HGB Conc 33.3 g/dl (31.0-36.0); Mean Corpuscular Hemoglobin 31.8 pg (27.0-33.0); Mean Corpuscular Volume 95.4 fL (80-98); Mean Platelet Volume 11.1 fL (9.4-12.4); NRBC Pct Auto 0.3 /100WBC (0.0-0.2); Platelet Count 255 X10*3/uL (160-400); Red Cell Distribution Width 12.8 % (11.0-16.0); White Blood Count 20.4 X10*3/uL (4.8-10.8)
[2021-03-07 07:10] LABS: Anion Gap 12 (12-20); Blood Urea Nitrogen 7 mg/dL (9-16); Calcium 7.7 mg/dL (8.4-10.2); Carbon Dioxide 28 mmol/L (22-29); Chloride 101 mmol/L (96-108); Creatinine Clr Calc Pharmacy 203.2; Estimated Glomerular Filt Rate > 60; Glucose Fasting 72 mg/dL (60-99); Potassium 3.8 mmol/L (3.3-5.1); Sodium 137 mmol/L (135-145)
[2021-03-07 08:43] LABS: HIV AB/AG Nonreactive (Nonreactive); HIV Num 1 0.05 S/CO (0.00-0.99)
[2021-03-07] MEDS: 0.9 % Sodium Chloride Flush 3 ML SYRINGE IVFLUSH ×3 (09:14→21:24)
--- NOTE | 2021-03-07 09:48 | PM.PNPUL ---
Subjective Subjective Date of Service: 03/07/21 Principal diagnosis: PNEUMONIA LEFT LOWER LOBE/ RESPIRATORY FAILURE Interval history: This patient is feeling better, very comfortable this morning but still on high-flow O2 at 40 L/minutes. Temperature is normal, not much cough or respiratory distress. Objective Data Labs CBC & Chem 7: 03/07/21 05:32 03/07/21 05:32 Labs: Laboratory Results - last 24 hr 03/06/21 03/06/21 03/07/21 13:40 13:40 05:32 WBC RBC Hgb Hct MCV MCH MCHC RDW Plt Count MPV Absolute Nucleated RBC Nucleated RBC % (auto) Sodium Potassium Chloride Carbon Dioxide Anion Gap BUN Creatinine Estim Creat Clear Calc Estimated GFR Fasting Glucose Calcium Nasal Screen MRSA (PCR) NEGATIVE Nasal S. aureus Screen NEGATIVE Nasal MRSA/S.aureus Interp SEE NOTE Respiratory Panel [place] See Note Adenovirus (Rapid PCR) Not Detected B.pert (TEM-PCR) Not Detected B.parapertussis DNA PCR Not Detected C. pneumoniae DNA (PCR) Not Detected Coronavirus OC43 (PCR) Not Detected Coronavirus HKU1 (PCR) Not Detected Coronavirus 229E (PCR) Not Detected Coronavirus NL63 (PCR) Not Detected HIV 1&2 Ab/P24 Ag 4thGn Nonreactive Human Metapneumovir PCR Not Detected Influenza A (RT-PCR) Not Detected Influenza B (RT-PCR) Not Detected M. pneumoniae (PCR) Not Detected Parainfluenza 1 (PCR) Not Detected Parainfluenza 2 (PCR) Not Detected Parainfluenza 3 (PCR) Not Detected Parainfluenza 4 (PCR) Not Detected RSV (PCR) Not Detected Entero/Rhino (PCR) Not Detected SARS-CoV-2 RNA (RT-PCR) Not Detected 03/07/21 03/07/21 05:32 05:32 WBC 20.4 H RBC 2.80 L Hgb 8.9 L Hct 26.7 L MCV 95.4 MCH 31.8 MCHC 33.3 RDW 12.8 Plt Count 255 MPV 11.1 Absolute Nucleated RBC 0.070 H Nucleated RBC % (auto) 0.3 H Sodium 137 Potassium 3.8 Chloride 101 Carbon Dioxide 28 Anion Gap 12 BUN 7 L Creatinine 0.62 Estim Creat Clear Calc 203.2 Estimated GFR > 60 Fasting Glucose 72 Calcium 7.7 L Nasal Screen MRSA (PCR) Nasal S. aureus Screen Nasal MRSA/S.aureus Interp Respiratory Panel [place] Adenovirus (Rapid PCR) B.pert (TEM-PCR) B.parapertussis DNA PCR C. pneumoniae DNA (PCR) Coronavirus OC43 (PCR) Coronavirus HKU1 (PCR) Coronavirus 229E (PCR) Coronavirus NL63 (PCR) HIV 1&2 Ab/P24 Ag 4thGn Human Metapneumovir PCR Influenza A (RT-PCR) Influenza B (RT-PCR) M. pneumoniae (PCR) Parainfluenza 1 (PCR) Parainfluenza 2 (PCR) Parainfluenza 3 (PCR) Parainfluenza 4 (PCR) RSV (PCR) Entero/Rhino (PCR) SARS-CoV-2 RNA (RT-PCR) Microbiology Microbiology Results: Microbiology 03/04/21 14:56 Blood - Venous Blood Culture - Preliminary No growth after 48 hours. 03/04/21 14:35 Blood - Venous Blood Culture - Preliminary No growth after 48 hours. Review of Systems Review of Systems Yes all other systems are reviewed and are negative Cardiovascular: Denies chest pain and Denies leg edema Respiratory: Reports as per HPI Gastrointestinal: Denies dyspepsia, Denies heartburn and Denies vomiting Musculoskeletal: Reports no additional musculoskeletal complaints Physical Exam Vital Signs: Vital Signs: Last Vital Signs Temp 97.5 F 03/07/21 07:21 Pulse 88 03/07/21 07:21 Resp 20 03/07/21 07:31 BP 108/53 L 03/07/21 07:21 Pulse Ox 98 03/07/21 07:21 Oxygen Flow Rate 2 03/04/21 13:56 Body Mass Index 29.4 Const: General: comfortable, no acute distress, alert and awake Orientation/consciousness: patient oriented x3 HENMT: Head: Yes normal to inspection General nose exam: No nasal polyps present and No nasal discharge present Face and sinus: Yes sinuses nontender Mouth: oropharynx normal Throat: Yes posterior oropharynx normal Eyes: General: appearance normal, both eyes and all related structures Neck: Neck: Yes normal visual inspection, Yes no lymphadenopathy, Yes trachea midline and Yes no JVD Thyroid: Thyroid normal Chest: Chest palpation & inspection: normal inspection of the chest, normal palpation of entire chest wall and no tenderness Resp: Other: There is dullness over the left lower chest, Breath sounds are decreased over the left lower lobe, some inspiratory sounds are audible today, no wheezing. Cardio: Palpation: normal PMI Rate: regular rate Rhythm: regular rhythm Heart sounds: no gallops and no murmurs Peripheral pulses: Peripheral pulses 2+ throughout GI: Palpation (GI): Soft to palpation, nontender, No hepatosplenomegaly present and no masses Auscultation: normal bowel sounds Back/Spine/Pelvis: Thoracic/Lumbar Spine: thoracic and lumbar spine normal to inspection Skin: General skin exam: no rashes or lesions noted Neuro: General: patient oriented x3 and no focal motor deficits Cranial nerves: Yes CN's II-XII intact bilaterally Extrem: General: Yes normal to inspection, Yes no clubbing, cyanosis or edema, Yes no calf tenderness and No venous stasis dermatitis Psych: Speech and movement: Normal speech and movement present Procedures Date of Service Date of Service: 03/07/21 Assessment and Plan Assessment and plan (1) Substance abuse or dependence: Problem details: NO WITHDRAWL SYMPTOMS . SEEMS TO BE DOING OK . Status: Acute (2) Pneumonia: Problem details: EXTENSIVE PNEUMONIA LEFT LOWER LOBE., CLINICALLY IMPROVING . SHOULD REPEAT CHEST XRAY FOR F U . TX CONT. ZOSYN , MAY BE CHANGED TO AUGMENTIN ON DISCHARGE, DC VANCOMYCIN . Status: Acute (3) Respiratory failure with hypoxia: Problem details: ACUTE RESPIRATORY DISTRESS, REQUIRING HIGH CONCENTRATIONS OF OXYGEN. TX TRY TO WEAN OFF HIGH ALANIS , SLOWLY GOAL IS TO KEEP O2 SAT ABOVE 90 % Status: Acute Time Spent With Patient Time: Total time spent is greater than 50% in coordination of care (as documented) at patient's floor/unit and/or counseling patient: Time with patient: 15 - 24 minutes
[2021-03-07] MEDS: Doxycycline Hyclate 100 MG in 0.9 % Sodium Chloride 250 ML 166.67 MG IV ×2 (10:16→21:23)
--- NOTE | 2021-03-07 10:16 | HO.PM.IMPN ---
Subjective Subjective Date of Service: 03/07/21 Interval History: sob improving Cardiovascular Cardiovascular: Reports no additional cardiovascular complaints Respiratory Respiratory: Reports no additional respiratory complaints Physical Exam Vital Signs: Vital Signs: Last Vital Signs Temp 97.5 F 03/07/21 07:21 Pulse 88 03/07/21 07:21 Resp 20 03/07/21 07:31 BP 108/53 L 03/07/21 07:21 Pulse Ox 98 03/07/21 07:21 Oxygen Flow Rate 2 03/04/21 13:56 Body Mass Index 29.4 General: AO X 3, ill appearing Resp: diminshed over left base CVS: S1,S2,RRR GI: soft, non tender, non distended Neuro: motor grossly intact Psych: appropriate affect Objective Data Current Medications Generic Name Dose Route Start Last Admin Trade Name Freq PRN Reason Stop Dose Admin Acetaminophen 650 mg 03/04/21 19:52 03/05/21 10:21 Acetaminophen 325 Mg Tablet PO 650 mg Q6H PRN Administration Pain, Mild (Pain Scale 1-3) Albuterol/Ipratropium 3 ml 03/04/21 19:52 Albuterol/Iprat 2.5/0.5mg 3 Ml Ampul.Neb INHALE Q4H PRN Shortness of Breath/Wheezing Albuterol/Ipratropium 3 ml 03/05/21 00:06 Albuterol/Iprat 2.5/0.5mg 3 Ml Ampul.Neb INHALE RQ6H PRN Shortness of Breath/Wheezing Enoxaparin Sodium 40 mg 03/04/21 20:00 03/06/21 21:37 Enoxaparin Sodium 40 Mg/0.4 Ml Syringe SUBCUT 40 mg Q24H TISH Administration Guaifenesin 10 ml 03/05/21 16:24 Guaifenesin 200 Mg/10 Ml 10 Ml Liquid PO Q6H PRN cough Piperacillin Sod/Tazobactam 50 mls @ 100 mls/hr 03/04/21 22:00 03/07/21 05:27 Sod 3.375 gm/ Sodium Chloride IV Infused Q6H TISH Infusion Vancomycin HCl 1,250 mg/ 250 mls @ 166.667 mls/hr 03/06/21 11:00 03/07/21 04:42 Sodium Chloride IV Infused Q8H TISH Infusion Doxycycline Hyclate 100 mg/ 250 mls @ 166.67 mls/hr 03/06/21 22:00 03/07/21 00:09 Sodium Chloride IV Infused Q12H TISH Infusion Magnesium Hydroxide 30 ml 03/04/21 19:52 Milk Of Magnesia 30 Ml Oral.Susp PO DAILY PRN Constipation Methadone HCl 130 mg 03/05/21 12:30 03/07/21 09:14 Methadone Hcl 1 Mg/0.1 Ml Oral.Conc PO 130 mg DAILY TISH Administration Ondansetron HCl 4 mg 03/04/21 19:52 Ondansetron Hcl 4 Mg/2 Ml Vial IVPUSH Q8H PRN Nausea and Vomiting Oxycodone HCl 5 mg 03/04/21 19:52 Oxycodone Hcl Immed Release 5 Mg Tablet PO Q6H PRN Pain, Severe (Pain Scale 7-10) Pharmacy Consult 1 each 03/04/21 12:51 Consult Rx Perform Med Rec MISCELLANE ONCE PRN Consult order Pharmacy Consult 1 each 03/04/21 19:52 Consult Rx Vancomycin Dosing MISCELLANE DAILY PRN Consult order Sodium Chloride 3 ml 03/05/21 00:00 03/07/21 09:14 0.9 % Sodium Chloride Flush 3 Ml Syringe IVFLUSH 3 ml QSHIFT TISH Administration Labs CBC & Chem 7: 03/07/21 05:32 03/07/21 05:32 Microbiology Microbiology Results: Microbiology 03/04/21 14:56 Blood - Venous Blood Culture - Preliminary No growth after 48 hours. 03/04/21 14:35 Blood - Venous Blood Culture - Preliminary No growth after 48 hours. Assessment and Plan (1) Pneumonia: Status: Acute Assessment and Plan: 26-year-old male presented with shortness of breath severe sepsis present on admission secondary to left lower lobe pneumonia complicated by acute hypoxic respiratory failure was escalated to high flow yesterday, but doing better today, will hopefully be able to wean off continue Zosyn, doxy added for atypical coverage sepsis resolving resp viral panel negative hiv negative blood cultures negative nasal mrsa negative - will dc vanc urine strep and legionella pending check repeat cxr acute hepatitis likely due to sepsis rule out acute hep C - check pcr questionable acetominophen toxicity, was not checked, however, patient reports DayQuil use. improving opioid dependence methadone
[2021-03-07 10:50] LABS: Vancomycin Trough 8.6 mcg/mL (10.0-20.0)
--- NOTE | 2021-03-07 11:45 | MHC.CM.PN ---
Per ROUNDS discussion, Patient is not yet medically cleared for dc (IV Doxycycline and IV Zosyn for PNA). Home is the goal for dc and CM will follow for possible need to adjust the dc plan.
--- NOTE | 2021-03-07 12:39 | CONS_ITS ---
DATE OF SERVICE: 03/05/2021 HISTORY OF PRESENT ILLNESS: This 26-year-old male is admitted since yesterday because of fever, shortness of breath, and cough. The patient was found to have massive pneumonia in the left lower lobe. The patient has stated use of cocaine and heroin. The patient is on methadone maintenance program and on top of that still using cocaine and heroin quite frequently. The patient denies any previous lung problems. REVIEW OF SYSTEMS: Not possible at this time due to poor mentation. PHYSICAL EXAMINATION: GENERAL: 26-year-old male, is slightly dyspneic, but not in acute respiratory distress. VITAL SIGNS: Temperature 98 degrees Fahrenheit, respiratory rate is 20. The patient on Ventimask with 55% FiO2. HEENT: Throat is clear. No acute infection. NECK: No lymphadenopathy. Trachea is in midline. CHEST: Symmetrical. Percussion note is dull over the left lower lobe, right side is normal. Breath sounds are decreased over the lower half of the left chest with few inspiratory crepitations. No wheezes. CARDIAC: Sounds are normal. No murmurs or gallops. ABDOMEN: Flat, soft, and nontender. EXTREMITIES: No edema or varicosities. Peripheral pulses normal. LABORATORY DATA: White cell count on admission 22.3 and this morning 21.6, hemoglobin 9.9. Venous blood gas, pH 7.40, pCO2 of 47, PO2 of 37. Chemistry, sodium 132, potassium 3.5, BUN 13, creatinine 0.81. IMAGING: Chest x-ray is reviewed and it is showing a large density in the left lower lobe. CTA of the chest negative for pulmonary embolism and there is left lower lobe consolidation consistent with pneumonia. There is a small patch of bronchopneumonia in the right lower lobe. CLINICAL IMPRESSION: 1. Acute pneumonia, left lower lobe, community acquired versus aspiration type pneumonia. 2. History of drug abuse. RECOMMENDATION: 1. Agree with the current treatment. The patient should be on broad-spectrum antibiotics at this time until we have culture reports. 2. DuoNeb updrafts q.6 hours while awake. 3. Oxygen supplementation to keep O2 saturation above 90%. 4. Watch for any withdrawal symptoms. 5. Follow up with repeat imaging to watch the progress of pneumonia. 6. If pneumonia gets any worse or does not resolve in due time, then patient would need bronchoscopic exam. 7. Watch for any impending respiratory distress. Thank you very much for asking me to see this patient. MD ALEX Rojas/ERIC / [id number]
[2021-03-07] MEDS: Enoxaparin Sodium 40 MG/0.4 ML SYRINGE SUBCUT (21:23)
[2021-03-08] VITALS (7 sets, daily range): BP systolic 108–126; BP diastolic 58–77; PULSE 77–97; RESP 18–19; TEMP 36–36.2; O2SAT 93–97
[2021-03-08] MEDS: Piperacillin Sodium/Tazobactam 3.375 GM in 0.9 % Sodium Chloride 50 ML IV ×3 (05:29→17:54)
[2021-03-08] MEDS: 0.9 % Sodium Chloride Flush 3 ML SYRINGE IVFLUSH ×3 (08:05→21:34)
[2021-03-08] MEDS: guaiFENesin 200 MG/10 ML 10 ML LIQUID PO ×2 (08:06→19:16)
[2021-03-08] MEDS: Doxycycline Hyclate 100 MG in 0.9 % Sodium Chloride 250 ML 166.67 MG IV ×2 (09:36→21:33)
--- NOTE | 2021-03-08 11:22 | HO.PM.IMPN ---
Subjective Subjective Date of Service: 03/08/21 Interval History: sob improved Cardiovascular Cardiovascular: Reports no additional cardiovascular complaints Respiratory Respiratory: Reports no additional respiratory complaints Physical Exam Vital Signs: Vital Signs: Last Vital Signs Temp 97 F 03/08/21 07:53 Pulse 92 03/08/21 07:53 Resp 19 03/08/21 07:53 BP 126/64 03/08/21 07:53 Pulse Ox 93 03/08/21 07:53 Oxygen Flow Rate 2 03/04/21 13:56 Body Mass Index 29.4 General: AO X 3, ill appearing Resp: diminshed over left base CVS: S1,S2,RRR GI: soft, non tender, non distended Neuro: motor grossly intact Psych: appropriate affect Objective Data Current Medications Generic Name Dose Route Start Last Admin Trade Name Freq PRN Reason Stop Dose Admin Acetaminophen 650 mg 03/04/21 19:52 03/05/21 10:21 Acetaminophen 325 Mg Tablet PO 650 mg Q6H PRN Administration Pain, Mild (Pain Scale 1-3) Albuterol/Ipratropium 3 ml 03/04/21 19:52 Albuterol/Iprat 2.5/0.5mg 3 Ml Ampul.Neb INHALE Q4H PRN Shortness of Breath/Wheezing Albuterol/Ipratropium 3 ml 03/05/21 00:06 Albuterol/Iprat 2.5/0.5mg 3 Ml Ampul.Neb INHALE RQ6H PRN Shortness of Breath/Wheezing Enoxaparin Sodium 40 mg 03/04/21 20:00 03/07/21 21:23 Enoxaparin Sodium 40 Mg/0.4 Ml Syringe SUBCUT 40 mg Q24H TISH Administration Guaifenesin 10 ml 03/05/21 16:24 03/08/21 08:06 Guaifenesin 200 Mg/10 Ml 10 Ml Liquid PO 10 ml Q6H PRN Administration cough Doxycycline Hyclate 100 mg/ 250 mls @ 166.67 mls/hr 03/06/21 22:00 03/08/21 11:18 Sodium Chloride IV Infused Q12H TISH Infusion Piperacillin Sod/Tazobactam 50 mls @ 100 mls/hr 03/07/21 18:00 03/08/21 06:07 Sod 3.375 gm/ Sodium Chloride IV Infused Q6H TISH Infusion Magnesium Hydroxide 30 ml 03/04/21 19:52 Milk Of Magnesia 30 Ml Oral.Susp PO DAILY PRN Constipation Methadone HCl 130 mg 03/05/21 12:30 03/08/21 08:04 Methadone Hcl 1 Mg/0.1 Ml Oral.Conc PO 130 mg DAILY TISH Administration Ondansetron HCl 4 mg 03/04/21 19:52 Ondansetron Hcl 4 Mg/2 Ml Vial IVPUSH Q8H PRN Nausea and Vomiting Oxycodone HCl 5 mg 03/04/21 19:52 Oxycodone Hcl Immed Release 5 Mg Tablet PO Q6H PRN Pain, Severe (Pain Scale 7-10) Pharmacy Consult 1 each 03/04/21 12:51 Consult Rx Perform Med Rec MISCELLANE ONCE PRN Consult order Pharmacy Consult 1 each 03/04/21 19:52 Consult Rx Vancomycin Dosing MISCELLANE DAILY PRN Consult order Sodium Chloride 3 ml 03/05/21 00:00 03/08/21 08:05 0.9 % Sodium Chloride Flush 3 Ml Syringe IVFLUSH 3 ml QSHIFT TISH Administration Labs CBC & Chem 7: 03/07/21 05:32 03/07/21 05:32 Microbiology Microbiology Results: Microbiology 03/04/21 14:56 Blood - Venous Blood Culture - Preliminary No growth after 48 hours. 03/04/21 14:35 Blood - Venous Blood Culture - Preliminary No growth after 48 hours. Assessment and Plan (1) Pneumonia: Status: Acute Assessment and Plan: 26-year-old male presented with shortness of breath severe sepsis present on admission secondary to left lower lobe pneumonia complicated by acute hypoxic respiratory failure was weaned off high flow yesterday, now on 3L, still hypoxic on room air continue Zosyn, doxy sepsis resolving resp viral panel negative hiv negative blood cultures negative nasal mrsa negative - now off vanc urine strep and legionella pending acute hepatitis likely due to sepsis rule out acute hep C - check pcr questionable acetaminophen toxicity, was not checked, however, patient reports DayQuil use. improving opioid dependence methadone
--- NOTE | 2021-03-08 11:39 | PM.PNPUL ---
Subjective Subjective Date of Service: 03/08/21 Principal diagnosis: PNEUMONIA LEFT LOWER LOBE/ RESPIRATORY FAILURE Interval history: CLINICALLY THIS PATIENT IS IMPROVING, REMAINS AFEBRILE, DENIES ANY CHEST PAIN,. OXYGEN REQUIREMENT DOWN TO 2 L/MINUTE BY NASAL CANNULA. Objective Data Labs CBC & Chem 7: 03/07/21 05:32 03/07/21 05:32 Microbiology Microbiology Results: Microbiology 03/04/21 14:56 Blood - Venous Blood Culture - Preliminary No growth after 48 hours. 03/04/21 14:35 Blood - Venous Blood Culture - Preliminary No growth after 48 hours. Review of Systems Review of Systems Yes all other systems are reviewed and are negative Physical Exam Vital Signs: Vital Signs: Last Vital Signs Temp 97 F 03/08/21 07:53 Pulse 92 03/08/21 07:53 Resp 19 03/08/21 07:53 BP 126/64 03/08/21 07:53 Pulse Ox 93 03/08/21 07:53 Oxygen Flow Rate 2 03/04/21 13:56 Body Mass Index 29.4 Const: General: comfortable, no acute distress, alert and awake Orientation/consciousness: patient oriented x3 HENMT: Head: Yes normal to inspection General nose exam: No nasal polyps present and No nasal discharge present Face and sinus: Yes sinuses nontender Mouth: oropharynx normal Throat: Yes posterior oropharynx normal Eyes: General: appearance normal, both eyes and all related structures Neck: Neck: Yes normal visual inspection, Yes no lymphadenopathy, Yes trachea midline and Yes no JVD Thyroid: Thyroid normal Chest: Chest palpation & inspection: normal inspection of the chest, normal palpation of entire chest wall and no tenderness Resp: Other: HAS GOOD RESPIRATORY EFFORTS, STILL DULL OVER THE LEFT LOWER CHEST, AIR ENTRY SEEMS TO BE IMPROVED. HAS A FEW INSPIRATORY CREPITATIONS OVER THE LEFT LOWER LOBE, NO PLEURAL RUB. Cardio: Palpation: normal PMI Rate: regular rate Rhythm: regular rhythm Heart sounds: no gallops and no murmurs Peripheral pulses: Peripheral pulses 2+ throughout GI: Palpation (GI): Soft to palpation, nontender, No hepatosplenomegaly present and no masses Auscultation: normal bowel sounds Back/Spine/Pelvis: Thoracic/Lumbar Spine: thoracic and lumbar spine normal to inspection Skin: General skin exam: no rashes or lesions noted Neuro: General: patient oriented x3 and no focal motor deficits Cranial nerves: Yes CN's II-XII intact bilaterally Extrem: General: Yes normal to inspection, Yes no clubbing, cyanosis or edema, Yes no calf tenderness and No venous stasis dermatitis Psych: Speech and movement: Normal speech and movement present Procedures Date of Service Date of Service: 03/08/21 Assessment and Plan Assessment and plan (1) Substance abuse or dependence: Problem details: NO WITHDRAWL SYMPTOMS . SEEMS TO BE DOING OK . Status: Acute (2) Pneumonia: Problem details: EXTENSIVE PNEUMONIA LEFT LOWER LOBE., CLINICALLY IMPROVING . REPEAT CHEST X-RAY AGAIN SHOWS CONSOLIDATION OF THE LEFT LOWER LOBE, WITHOUT MUCH INTERVAL CHANGE. TX CONT. ZOSYN , AND DOXYCYCLINE DC VANCOMYCIN . Status: Acute (3) Leukocytosis: Problem details: SEC TO PNEUMONIA Status: Acute (4) Respiratory failure with hypoxia: Problem details: ACUTE RESPIRATORY DISTRESS. O2 REQUIREMENT HAS DEFINITELY IMPROVED. DOES NOT NEED HIGH-FLOW, DOING OKAY WITH NASAL CANNULA AT 2 L/MINUTE. CONTINUE TO WEAN OFF OXYGEN SLOWLY. Status: Acute Time Spent With Patient Time: Total time spent is greater than 50% in coordination of care (as documented) at patient's floor/unit and/or counseling patient: Time with patient: 15 - 24 minutes
[2021-03-08] MEDS: Enoxaparin Sodium 40 MG/0.4 ML SYRINGE SUBCUT (19:12)
[2021-03-09] VITALS (7 sets, daily range): BP systolic 100–140; BP diastolic 54–78; PULSE 70–104; RESP 17–20; TEMP 36.2–37.1; O2SAT 92–98
[2021-03-09] MEDS: Piperacillin Sodium/Tazobactam 3.375 GM in 0.9 % Sodium Chloride 50 ML IV ×4 (00:22→17:17)
[2021-03-09 06:12] LABS: Strep Pneumo Ag urine Not Detected (Not Detected)
[2021-03-09] MEDS: 0.9 % Sodium Chloride Flush 3 ML SYRINGE IVFLUSH ×3 (08:27→21:12)
[2021-03-09] MEDS: guaiFENesin 200 MG/10 ML 10 ML LIQUID PO ×2 (08:28→17:20)
[2021-03-09] MEDS: Doxycycline Hyclate 100 MG in 0.9 % Sodium Chloride 250 ML 166.67 MG IV ×2 (11:17→21:12)
--- NOTE | 2021-03-09 11:42 | HO.PM.IMPN ---
Subjective Subjective Date of Service: 03/09/21 Interval History: improving Cardiovascular Cardiovascular: Reports no additional cardiovascular complaints Gastrointestinal Gastrointestinal: Reports no additional gastrointestinal complaints Physical Exam Vital Signs: Vital Signs: Last Vital Signs Temp 97.8 F 03/09/21 08:00 Pulse 104 H 03/09/21 08:00 Resp 20 03/09/21 08:00 BP 121/61 03/09/21 08:00 Pulse Ox 92 03/09/21 08:00 Oxygen Flow Rate 2 03/04/21 13:56 Body Mass Index 29.4 General: AO X 3, ill appearing Resp: cta CVS: S1,S2,RRR GI: soft, non tender, non distended Neuro: motor grossly intact Psych: appropriate affect Objective Data Current Medications Generic Name Dose Route Start Last Admin Trade Name Freq PRN Reason Stop Dose Admin Acetaminophen 650 mg 03/04/21 19:52 03/05/21 10:21 Acetaminophen 325 Mg Tablet PO 650 mg Q6H PRN Administration Pain, Mild (Pain Scale 1-3) Albuterol/Ipratropium 3 ml 03/04/21 19:52 Albuterol/Iprat 2.5/0.5mg 3 Ml Ampul.Neb INHALE Q4H PRN Shortness of Breath/Wheezing Albuterol/Ipratropium 3 ml 03/05/21 00:06 Albuterol/Iprat 2.5/0.5mg 3 Ml Ampul.Neb INHALE RQ6H PRN Shortness of Breath/Wheezing Enoxaparin Sodium 40 mg 03/04/21 20:00 03/08/21 19:12 Enoxaparin Sodium 40 Mg/0.4 Ml Syringe SUBCUT 40 mg Q24H TISH Administration Guaifenesin 10 ml 03/05/21 16:24 03/09/21 08:28 Guaifenesin 200 Mg/10 Ml 10 Ml Liquid PO 10 ml Q6H PRN Administration cough Doxycycline Hyclate 100 mg/ 250 mls @ 166.67 mls/hr 03/06/21 22:00 03/09/21 11:17 Sodium Chloride IV 166.67 mls/hr Q12H TISH Administration Piperacillin Sod/Tazobactam 50 mls @ 100 mls/hr 03/07/21 18:00 03/09/21 06:15 Sod 3.375 gm/ Sodium Chloride IV Infused Q6H TISH Infusion Magnesium Hydroxide 30 ml 03/04/21 19:52 Milk Of Magnesia 30 Ml Oral.Susp PO DAILY PRN Constipation Methadone HCl 130 mg 03/05/21 12:30 03/09/21 08:27 Methadone Hcl 1 Mg/0.1 Ml Oral.Conc PO 130 mg DAILY TISH Administration Ondansetron HCl 4 mg 03/04/21 19:52 Ondansetron Hcl 4 Mg/2 Ml Vial IVPUSH Q8H PRN Nausea and Vomiting Oxycodone HCl 5 mg 03/04/21 19:52 Oxycodone Hcl Immed Release 5 Mg Tablet PO Q6H PRN Pain, Severe (Pain Scale 7-10) Pharmacy Consult 1 each 03/04/21 12:51 Consult Rx Perform Med Rec MISCELLANE ONCE PRN Consult order Pharmacy Consult 1 each 03/04/21 19:52 Consult Rx Vancomycin Dosing MISCELLANE DAILY PRN Consult order Sodium Chloride 3 ml 03/05/21 00:00 03/09/21 08:27 0.9 % Sodium Chloride Flush 3 Ml Syringe IVFLUSH 3 ml QSHIFT TISH Administration Labs CBC & Chem 7: 03/07/21 05:32 03/07/21 05:32 Microbiology Microbiology Results: Microbiology 03/04/21 14:56 Blood - Venous Blood Culture - Preliminary No growth after 48 hours. 03/04/21 14:35 Blood - Venous Blood Culture - Preliminary No growth after 48 hours. Assessment and Plan (1) Pneumonia: Status: Acute Assessment and Plan: 26-year-old male presented with shortness of breath severe sepsis present on admission secondary to left lower lobe pneumonia complicated by acute hypoxic respiratory failure was weaned off high flow 03/07, now on 4L, still hypoxic on room air continue Zosyn, doxy sepsis resolving resp viral panel negative hiv negative blood cultures negative nasal mrsa negative - now off vanc urine strep negative urine legionella pending acute hepatitis likely due to sepsis rule out acute hep C - check pcr questionable acetaminophen toxicity, was not checked, however, patient reports DayQuil use. improving opioid dependence methadone
[2021-03-09] MEDS: Enoxaparin Sodium 40 MG/0.4 ML SYRINGE SUBCUT (21:11)
[2021-03-10] MEDS: Piperacillin Sodium/Tazobactam 3.375 GM in 0.9 % Sodium Chloride 50 ML IV ×3 (00:56→13:30)
[2021-03-10 03:50] VITALS: BP 120/60; PULSE 104; RESP 20; TEMP 37; O2SAT 95
[2021-03-10 07:14] VITALS: BP 114/53; PULSE 90; RESP 20; TEMP 37; O2SAT 96
[2021-03-10] MEDS: 0.9 % Sodium Chloride Flush 3 ML SYRINGE IVFLUSH ×2 (08:49→15:42)
--- NOTE | 2021-03-10 09:21 | P.PNPL_ITS ---
Subjective Subjective Date of Service: 03/10/21 Principal diagnosis: PNEUMONIA LEFT LOWER LOBE/ RESPIRATORY FAILURE Interval history: Patient was seen and examined. Complains still some left- sided pleuritic chest discomfort. His chest discomfort is overall better. His shortness of breath also has improved. He is currently on room air. Plan to repeat a chest x-ray due to his extensive pneumonia. The patient will continue IV antibiotics at this time. He should follow closely upon discharge due to his extensive pneumonia. Objective Data Labs CBC & Chem 7: 03/07/21 05:32 03/07/21 05:32 Microbiology Microbiology Results: Microbiology 03/04/21 14:56 Blood - Venous Blood Culture - Final No growth after 5 days. 03/04/21 14:35 Blood - Venous Blood Culture - Final No growth after 5 days. Review of Systems Constitutional: Denies night sweats Denies change in voice, Denies lip swelling, Denies mouth pain, Reports nasal congestion, Reports nasal discharge and Denies tongue swelling Cardiovascular: Reports dyspnea on exertion Respiratory: Reports cough, Reports pain on inspiration, Reports pain with cough and Reports dyspnea on exertion Gastrointestinal: Denies abdominal pain Musculoskeletal: Denies no additional musculoskeletal complaints Denies Neuro-related abnormal movements Psychiatric: Denies no additional psychiatric complaints Hematologic/Lymphatic: Denies easy bleeding and Denies lymphadenopathy Allergic/Immunologic: Denies lip swelling and Denies tongue swelling Physical Exam Vital Signs: Vital Signs: Last Vital Signs Temp 98.6 F 03/10/21 07:14 Pulse 90 03/10/21 07:14 Resp 20 03/10/21 07:14 BP 114/53 L 03/10/21 07:14 Pulse Ox 96 03/10/21 07:14 Oxygen Flow Rate 2 03/04/21 13:56 Body Mass Index 29.4 Const: General: alert Neck: Neck: Yes normal visual inspection, Yes full ROM and Yes no lymphadenopathy Chest: Chest palpation & inspection: normal inspection of the chest Resp: Auscultation: diminished lung sounds, bronchial breath sounds on the left and egophony Cardio: Rate: regular rate Rhythm: regular rhythm Heart sounds: S1 normal heart sound present and S2 normal heart sound present GI: Palpation (GI): Soft to palpation and nontender Auscultation: normal bowel sounds Skin: General skin exam: rashes and/or lesions noted Procedures Date of Service Date of Service: 03/10/21 Assessment and Plan Assessment and plan (1) Respiratory failure with hypoxia: Status: Acute (2) Pneumonia: Problem details: EXTENSIVE PNEUMONIA LEFT LOWER LOBE Status: Acute (3) Leukocytosis: Status: Acute Assessment and Plan: Repeat chest x-ray PA and lateral. Continue IV antibiotics. Consider bronchoscopy if chest x-ray not clearing in or if the white count continues to be elevated. Clinically the patient appears to be improving therefore some of the workup can be done as an outpatient as long as his oxygen requirements resolve and he follows up Time Spent With Patient Time: Total time spent is greater than 50% in coordination of care (as documented) at patient's floor/unit and/or counseling patient: Time with patient: 15 - 24 minutes
--- NOTE | 2021-03-10 10:57 | P.PNIM_ITS ---
Subjective Subjective Date of Service: 03/10/21 Interval History: improving Cardiovascular Cardiovascular: Reports no additional cardiovascular complaints Gastrointestinal Gastrointestinal: Reports no additional gastrointestinal complaints Physical Exam Vital Signs: Vital Signs: Last Vital Signs Temp 98.6 F 03/10/21 07:14 Pulse 90 03/10/21 07:14 Resp 20 03/10/21 07:14 BP 114/53 L 03/10/21 07:14 Pulse Ox 96 03/10/21 07:14 Oxygen Flow Rate 2 03/04/21 13:56 Body Mass Index 29.4 General: AO X 3, weak but imrpoving Resp: cta CVS: S1,S2,RRR GI: soft, non tender, non distended Neuro: motor grossly intact Psych: appropriate affect Objective Data Current Medications Generic Name Dose Route Start Last Admin Trade Name Freq PRN Reason Stop Dose Admin Acetaminophen 650 mg 03/04/21 19:52 03/05/21 10:21 Acetaminophen 325 Mg Tablet PO 650 mg Q6H PRN Administration Pain, Mild (Pain Scale 1-3) Albuterol/Ipratropium 3 ml 03/04/21 19:52 Albuterol/Iprat 2.5/0.5mg 3 Ml Ampul.Neb INHALE Q4H PRN Shortness of Breath/Wheezing Albuterol/Ipratropium 3 ml 03/05/21 00:06 Albuterol/Iprat 2.5/0.5mg 3 Ml Ampul.Neb INHALE RQ6H PRN Shortness of Breath/Wheezing Docusate Sodium 100 mg 03/10/21 10:00 Docusate Sodium 100 Mg Capsule PO BID TISH Enoxaparin Sodium 40 mg 03/04/21 20:00 03/09/21 21:11 Enoxaparin Sodium 40 Mg/0.4 Ml Syringe SUBCUT 40 mg Q24H TISH Administration Guaifenesin 10 ml 03/05/21 16:24 03/09/21 17:20 Guaifenesin 200 Mg/10 Ml 10 Ml Liquid PO 10 ml Q6H PRN Administration cough Doxycycline Hyclate 100 mg/ 250 mls @ 166.67 mls/hr 03/06/21 22:00 03/09/21 23:18 Sodium Chloride IV Infused Q12H TISH Infusion Piperacillin Sod/Tazobactam 50 mls @ 100 mls/hr 03/07/21 18:00 03/10/21 05:58 Sod 3.375 gm/ Sodium Chloride IV Infused Q6H TISH Infusion Magnesium Hydroxide 30 ml 03/04/21 19:52 Milk Of Magnesia 30 Ml Oral.Susp PO DAILY PRN Constipation Methadone HCl 130 mg 03/05/21 12:30 03/10/21 08:45 Methadone Hcl 1 Mg/0.1 Ml Oral.Conc PO 130 mg DAILY TISH Administration Mineral Oil 133 ml 03/10/21 09:14 Mineral Oil Enema 133 Ml Enema [place] ONCE PRN constipation Ondansetron HCl 4 mg 03/04/21 19:52 Ondansetron Hcl 4 Mg/2 Ml Vial IVPUSH Q8H PRN Nausea and Vomiting Pharmacy Consult 1 each 03/04/21 12:51 Consult Rx Perform Med Rec MISCELLANE ONCE PRN Consult order Pharmacy Consult 1 each 03/04/21 19:52 Consult Rx Vancomycin Dosing MISCELLANE DAILY PRN Consult order Sodium Chloride 3 ml 03/05/21 00:00 03/10/21 08:49 0.9 % Sodium Chloride Flush 3 Ml Syringe IVFLUSH 3 ml QSHIFT TISH Administration Labs CBC & Chem 7: 03/07/21 05:32 03/07/21 05:32 Microbiology Microbiology Results: Microbiology 03/04/21 14:56 Blood - Venous Blood Culture - Final No growth after 5 days. 03/04/21 14:35 Blood - Venous Blood Culture - Final No growth after 5 days. Assessment and Plan (1) Pneumonia: Status: Acute Assessment and Plan: 26-year-old male presented with shortness of breath severe sepsis present on admission secondary to left lower lobe pneumonia complicated by acute hypoxic respiratory failure was weaned off high flow 03/07, now on 2L, still hypoxic on room air, but c ontinues to improve daily continue Zosyn, doxy sepsis resolving resp viral panel negative hiv negative blood cultures negative nasal mrsa negative - now off vanc urine strep negative urine legionella pending acute hepatitis likely due to sepsis rule out acute hep C - check pcr questionable acetaminophen toxicity, was not checked, however, patient reports DayQuil use. improving opioid dependence methadone
[2021-03-10 11:00] VITALS: BP 122/66; PULSE 79; RESP 20; TEMP 36.9; O2SAT 93
[2021-03-10] MEDS: Docusate Sodium 100 MG CAPSULE PO ×2 (11:33→21:15)
[2021-03-10] MEDS: Doxycycline Hyclate 100 MG in 0.9 % Sodium Chloride 250 ML 166.67 MG IV (11:33)
--- NOTE | 2021-03-10 13:10 | MHC.CM.PN ---
PER ROUNDS discussion, Patient is not yet medically cleared for dc (IV Doxycycline, IV Zosyn). HOME IS THe goal for dc and CM will continue to follow for possible need to adjust the dc plan.
[2021-03-10 15:16] VITALS: BP 116/59; PULSE 75; RESP 17; TEMP 36.6; O2SAT 93
--- NOTE | 2021-03-10 16:00 | PM.IDPN ---
Subjective Subjective Date of Service: 03/10/21 Critical Care Time (minutes): 15 Comment: he feels better he has no shortness of breath he has elevated LFTs and is getting workup for Hepatitis C Objective Data Labs CBC & Chem 7: 03/07/21 05:32 03/07/21 05:32 Microbiology Microbiology Results: Microbiology 03/04/21 14:56 Blood - Venous Blood Culture - Final No growth after 5 days. 03/04/21 14:35 Blood - Venous Blood Culture - Final No growth after 5 days. Physical Exam Vital Signs: Vital Signs: Last Vital Signs Temp 97.9 F 03/10/21 15:16 Pulse 75 03/10/21 15:16 Resp 17 03/10/21 15:16 BP 116/59 L 03/10/21 15:16 Pulse Ox 93 03/10/21 15:16 Oxygen Flow Rate 2 03/04/21 13:56 Body Mass Index 29.4 Const: General: cooperative HENMT: Head: Yes normal to inspection Mouth: Normal oral and palatal mucosa present Resp: Effort & Inspection: normal respiratory effort Cardio: Rate: regular rate Rhythm: regular rhythm GI: Palpation (GI): Soft to palpation and nontender Skin: General skin exam: no rashes or lesions noted Assessment and Plan Assessment and plan (1) Respiratory failure with hypoxia: Problem details: Pneumonia,now improving clinically He has no complaints now Status: Acute Assessment and Plan: Would give po Doxycycline for a week Time Spent With Patient Time: Total time spent is greater than 50% in coordination of care (as documented) at patient's floor/unit and/or counseling patient: Time with patient: 15 - 24 minutes
[2021-03-10 19:06] VITALS: BP 118/63; PULSE 73; RESP 18; TEMP 36.6; O2SAT 92
[2021-03-10] MEDS: Enoxaparin Sodium 40 MG/0.4 ML SYRINGE SUBCUT (21:15)
--- NOTE | 2021-03-10 22:09 | PC.NURSE ---
Oxygen saturation 87-89 % on room air , pt instructed on use IS . Able to use to IS up to 1500, no improvement with o2 sat still 88-89%. Oxygen 2l via NC applied, o2sat 94%
[2021-03-11] VITALS (9 sets, daily range): BP systolic 110–128; BP diastolic 55–75; PULSE 74–95; RESP 18–20; TEMP 35.9–37.1; O2SAT 86–97
[2021-03-11] MEDS: 0.9 % Sodium Chloride Flush 3 ML SYRINGE IVFLUSH ×4 (00:03→20:10)
[2021-03-11 07:36] LABS: Hematocrit 30.9 % (42-52); Hemoglobin 9.7 g/dl (14.0-18.0); Mean Corpuscular HGB Conc 31.4 g/dl (31.0-36.0); Mean Corpuscular Hemoglobin 31.7 pg (27.0-33.0); Mean Platelet Volume 10.1 fL (9.4-12.4); NRBC Pct Auto 0.3 /100WBC (0.0-0.2); Platelet Count 586 X10*3/uL (160-400); Red Blood Count 3.06 X10*6/uL (4.60-5.80); Red Cell Distribution Width 13.2 % (11.0-16.0); White Blood Count 13.8 X10*3/uL (4.8-10.8)
[2021-03-11] MEDS: Docusate Sodium 100 MG CAPSULE PO (08:49)
[2021-03-11] MEDS: guaiFENesin 200 MG/10 ML 10 ML LIQUID PO ×2 (08:54→16:03)
[2021-03-11 08:56] LABS: Alanine Aminotransferase 102 U/L (0-40); Alkaline Phosphatase 142 U/L (39-117); Anion Gap 15 (12-20); Aspartate Amino Transferase 123 U/L (5-37); Bilirubin Direct 0.7 mg/dL (0.0-0.5); Bilirubin Total 1.2 mg/dL (0.0-1.0); Blood Urea Nitrogen 11 mg/dL (9-16); Carbon Dioxide 25 mmol/L (22-29); Chloride 105 mmol/L (96-108); Creatinine Clr Calc Pharmacy 182.5; Estimated Glomerular Filt Rate > 60; Glucose Fasting 90 mg/dL (60-99); Sodium 140 mmol/L (135-145)
[2021-03-11 09:09] LABS: Albumin Level 3.3 g/dL (3.5-5.0)
--- NOTE | 2021-03-11 10:01 | P.PNPL_ITS ---
Subjective Subjective Date of Service: 03/11/21 Principal diagnosis: PNEUMONIA LEFT LOWER LOBE/ RESPIRATORY FAILURE Interval history: The patient was seen on exam. Overall feeling better. Required 2 L of oxygen overnight. Currently on room air. I am hopeful that he can continue on room air. His chest x-ray appeared to be a little bit improve which is reassuring. In addition to that is leukocytosis also improved. Objective Data Labs CBC & Chem 7: 03/11/21 05:59 03/11/21 05:59 Labs: Laboratory Results - last 24 hr 03/11/21 03/11/21 05:59 05:59 WBC 13.8 H RBC 3.06 L Hgb 9.7 L Hct 30.9 L MCV 101.0 H D MCH 31.7 MCHC 31.4 RDW 13.2 Plt Count 586 H D MPV 10.1 Absolute Nucleated RBC 0.040 H Nucleated RBC % (auto) 0.3 H Sodium 140 Potassium 5.0 D Chloride 105 Carbon Dioxide 25 Anion Gap 15 BUN 11 D Creatinine 0.69 Estim Creat Clear Calc 182.5 Estimated GFR > 60 Fasting Glucose 90 Calcium 9.0 D Total Bilirubin 1.2 H Direct Bilirubin 0.7 H AST 123 H ALT 102 H Alkaline Phosphatase 142 H D Total Protein 7.0 D Albumin 3.3 L D Microbiology Microbiology Results: Microbiology 03/04/21 14:56 Blood - Venous Blood Culture - Final No growth after 5 days. 03/04/21 14:35 Blood - Venous Blood Culture - Final No growth after 5 days. Review of Systems Constitutional: Denies night sweats Denies change in voice, Denies lip swelling, Denies mouth pain, Reports nasal congestion, Reports nasal discharge and Denies tongue swelling Cardiovascular: Denies chest pain Respiratory: Reports cough Gastrointestinal: Denies abdominal pain Musculoskeletal: Denies no additional musculoskeletal complaints Denies Neuro-related abnormal movements Psychiatric: Denies no additional psychiatric complaints Hematologic/Lymphatic: Denies easy bleeding and Denies lymphadenopathy Allergic/Immunologic: Denies lip swelling and Denies tongue swelling Physical Exam Vital Signs: Vital Signs: Last Vital Signs Temp 96.6 F L 03/11/21 07:37 Pulse 95 03/11/21 07:37 Resp 20 03/11/21 07:37 BP 120/68 03/11/21 07:37 Pulse Ox 92 03/11/21 08:58 Oxygen Flow Rate 2 03/04/21 13:56 Body Mass Index 29.4 Const: General: alert Neck: Neck: Yes normal visual inspection, Yes full ROM and Yes no lymphade nopathy Chest: Chest palpation & inspection: normal inspection of the chest Resp: Auscultation: diminished lung sounds and bronchial breath sounds on the left Cardio: Rate: regular rate Rhythm: regular rhythm Heart sounds: S1 normal heart sound present and S2 normal heart sound present GI: Palpation (GI): Soft to palpation and nontender Auscultation: normal bowel sounds Skin: General skin exam: rashes and/or lesions noted Procedures Date of Service Date of Service: 03/11/21 Assessment and Plan Assessment and plan (1) Pneumonia: Problem details: EXTENSIVE PNEUMONIA LEFT LOWER LOBE Status: Acute (2) Leukocytosis: Status: Acute (3) Respiratory failure with hypoxia: Problem details: Pneumonia,now improving clinically He has no complaints now Status: Acute Assessment and Plan: Change to PO Doxycycline 6MWT prior to discharge Will f/u with Pulmonary outpt in 1-2 weeks Time Spent With Patient Time: Total time spent is greater than 50% in coordination of care (as documented) at patient's floor/unit and/or counseling patient: Time with patient: 15 - 24 minutes
--- NOTE | 2021-03-11 12:54 | HO.PM.IMPN ---
Subjective Subjective Date of Service: 03/11/21 Interval History: feeling much better, wants to go home Cardiovascular Cardiovascular: Reports no additional cardiovascular complaints Gastrointestinal Gastrointestinal: Reports no additional gastrointestinal complaints Physical Exam Vital Signs: Vital Signs: Last Vital Signs Temp 96.9 F 03/11/21 11:32 Pulse 84 03/11/21 11:32 Resp 18 03/11/21 11:32 BP 110/55 L 03/11/21 11:32 Pulse Ox 94 03/11/21 11:32 Oxygen Flow Rate 2 03/04/21 13:56 Body Mass Index 29.4 General: AO X 3, no acute distress Resp: CTA bilateral CVS: S1,S2,RRR GI: soft, non tender, non distended Neuro: motor grossly intact Psych: appropriate affect Objective Data Current Medications Generic Name Dose Route Start Last Admin Trade Name Freq PRN Reason Stop Dose Admin Acetaminophen 650 mg 03/04/21 19:52 03/05/21 10:21 Acetaminophen 325 Mg Tablet PO 650 mg Q6H PRN Administration Pain, Mild (Pain Scale 1-3) Albuterol/Ipratropium 3 ml 03/04/21 19:52 Albuterol/Iprat 2.5/0.5mg 3 Ml Ampul.Neb INHALE Q4H PRN Shortness of Breath/Wheezing Albuterol/Ipratropium 3 ml 03/05/21 00:06 Albuterol/Iprat 2.5/0.5mg 3 Ml Ampul.Neb INHALE RQ6H PRN Shortness of Breath/Wheezing Docusate Sodium 100 mg 03/10/21 10:00 03/11/21 08:49 Docusate Sodium 100 Mg Capsule PO 100 mg BID TISH Administration Doxycycline Hyclate 100 mg 03/11/21 12:45 Doxycycline Hyclate 100 Mg Tablet PO Q12H TISH Enoxaparin Sodium 40 mg 03/04/21 20:00 03/10/21 21:15 Enoxaparin Sodium 40 Mg/0.4 Ml Syringe SUBCUT 40 mg Q24H TISH Administration Guaifenesin 10 ml 03/05/21 16:24 03/11/21 08:54 Guaifenesin 200 Mg/10 Ml 10 Ml Liquid PO 10 ml Q6H PRN Administration cough Magnesium Hydroxide 30 ml 03/04/21 19:52 Milk Of Magnesia 30 Ml Oral.Susp PO DAILY PRN Constipation Methadone HCl 130 mg 03/05/21 12:30 03/11/21 08:48 Methadone Hcl 1 Mg/0.1 Ml Oral.Conc PO 130 mg DAILY TISH Administration Mineral Oil 133 ml 03/10/21 09:14 Mineral Oil Enema 133 Ml Enema [place] ONCE PRN constipation Ondansetron HCl 4 mg 03/04/21 19:52 Ondansetron Hcl 4 Mg/2 Ml Vial IVPUSH Q8H PRN Nausea and Vomiting Pharmacy Consult 1 each 03/04/21 12:51 Consult Rx Perform Med Rec MISCELLANE ONCE PRN Consult order Pharmacy Consult 1 each 03/04/21 19:52 Consult Rx Vancomycin Dosing MISCELLANE DAILY PRN Consult order Sodium Chloride 3 ml 03/05/21 00:00 03/11/21 08:49 0.9 % Sodium Chloride Flush 3 Ml Syringe IVFLUSH 3 ml QSHIFT TISH Administration Labs CBC & Chem 7: 03/11/21 05:59 03/11/21 05:59 Labs: Laboratory Results - last 24 hr 03/11/21 03/11/21 05:59 05:59 WBC 13.8 H RBC 3.06 L Hgb 9.7 L Hct 30.9 L MCV 101.0 H D MCH 31.7 MCHC 31.4 RDW 13.2 Plt Count 586 H D MPV 10.1 Absolute Nucleated RBC 0.040 H Nucleated RBC % (auto) 0.3 H Sodium 140 Potassium 5.0 D Chloride 105 Carbon Dioxide 25 Anion Gap 15 BUN 11 D Creatinine 0.69 Estim Creat Clear Calc 182.5 Estimated GFR > 60 Fasting Glucose 90 Calcium 9.0 D Total Bilirubin 1.2 H Direct Bilirubin 0.7 H AST 123 H ALT 102 H Alkaline Phosphatase 142 H D Total Protein 7.0 D Albumin 3.3 L D Assessment and Plan (1) Pneumonia: Status: Acute Assessment and Plan: 26-year-old male presented with shortness of breath severe sepsis present on admission secondary to left lower lobe pneumonia complicated by acute hypoxic respiratory failure was weaned off high flow 03/07, now on 2L, still hypoxic on room air, but continues to improve daily s/p 5 days iv zosyn and doxy will change to 7 days po doxy sepsis resolving resp viral panel negative hiv negative blood cultures negative nasal mrsa negative - now off vanc urine strep negative urine legionella pending acute hepatitis likely due to sepsis rule out acute hep C - antibody negative, follow up pcr questionable acetaminophen toxicity, was not checked, however, patient reports DayQuil use. improving opioid dependence methadone dispo: patient wanted to go home today, but still requiring oxygen, unable to private pay for home o2, and pneumonia not qualifying diagnosis for home o2.
[2021-03-11] MEDS: Enoxaparin Sodium 40 MG/0.4 ML SYRINGE SUBCUT (20:10)
[2021-03-12] VITALS: BP 115/56; PULSE 73; RESP 18; TEMP 36.2; O2SAT 95
[2021-03-12 03:30] VITALS: BP 117/55; PULSE 67; RESP 20; TEMP 36.4; O2SAT 91
[2021-03-12] MEDS: 0.9 % Sodium Chloride Flush 3 ML SYRINGE IVFLUSH (07:16)
[2021-03-12 07:48] VITALS: BP 128/68; PULSE 83; RESP 18; TEMP 36.2; O2SAT 95
[2021-03-12] MEDS: Docusate Sodium 100 MG CAPSULE PO (08:00)
--- NOTE | 2021-03-12 11:41 | MHC.CM.PN ---
Patient has been medically cleared for dc to home/no home services required.
[2021-03-12 12:00] VITALS: BP 126/72; PULSE 84; RESP 18; TEMP 36.4; O2SAT 90
--- NOTE | 2021-03-12 14:37 | P.DS_ITS ---
DS: Providers Provider Date of Service: 03/12/21 Date of admission: 03/04/21 19:52 Primary care physician: [facility] Consults: 03/04/21 19:52 Consult to Gastroenterology Routine Consulting Provider: Jared Heck Reason for consultation: Transaminitis;elevated t bili Consult to Infectious Diseases Routine Consulting Provider: Ernestina Silverman Reason for consultation: pna 03/04/21 19:58 Addiction Medicine Routine Consulting Provider: Andra Blanchard Reason for consultation: opiate dependence 03/05/21 00:06 Consult to Pulmonology Routine Consulting Provider: Tarun Skinner Reason for consultation: Acute hypoxic resp failure DS: Diagnosis Discharge Diagnosis (1) Pneumonia: Status: Acute (2) Respiratory failure with hypoxia: Status: Acute (3) Leukocytosis: Status: Acute (4) Fever: Status: Acute (5) Elevated liver function tests: Status: Acute (6) Hyperbilirubinemia: Status: Acute DS: Medications Discharge Medications Home Medications: Home Medications Medication Instructions Recorded Confirmed methadone 140 mg PO DAILY 03/04/21 03/04/21 Previous Rx's Medication Instructions Recorded doxycycline hyclate 100 mg PO Q12H #10 tab 03/12/21 DS: Summary Hospital Course Hospital Course: Admission note HPI 26-year-old female with a past medical history of polysubstance abuse/abuses cocaine and heroin; opiate dependence on methadone maintenance program, presented to the hospital with a chief complaint of cough and shortness of breath. Patient mentions that she has been using heroin and last use was yesterday and this morning when she woke up she had multiple episodes of nausea and vomiting; denies any blood in the vomitus. Denies any chest pain palpitations. Denies any numbness tingling. Denies any symptoms. Review of all other systems is negative except mentioned above Per ER team patient noted to be hypoxic at 92% on 5 L; patient was given vanc and Zosyn. Noted to have hyponatremia, leukocytosis, normal lactate, elevated procalcitonin. Patient not in respiratory distress. Mildly tachycardic. CT angio chest showed left lower lobe pneumonia; question aspirated. No evidence of pulmonary embolism. COVID-19 negative. Patient was given nebulizer treatment as well. admitted for further management Hospital course patient was admitted to the hospital with severe sepsis secondary to left lower lobe pneumonia complicated by acute hypoxic respiratory failure. He was treated with IV antibiotics of Zosyn and doxycycline with fair response over the course of hospital stay. His oxygen requirement was as elevated as high flow oxygen which was weaned down slowly over the course of 5 days down to room air. His blood cultures remain negative, his viral panel was negative as well. Images for the chest were consistent with CTA showed large left lower lobe pneumonia with right lower lobe infiltrate as well. Evaluated by infectious disease specialist who followed him during the hospital stay. Room air oxygen level of 95%. To be discharged on doxycycline for 5 more days. He was noted to elevated transaminitis. Tested negative for hepatitis screening. Likely a result of sepsis at presentation. Trended down during the hospital stay. Time Spent with Patient Time attestation: Total time spent providing and/or coordinating discharge services: Discharge coordination time: Greater than 30 minutes Quality: Stroke Does the patient have a stroke diagnosis?: No Physical Exam Vital Signs: Vital Signs: Last Vital Signs Temp 97.6 F 03/12/21 12:00 Pulse 84 03/12/21 12:00 Resp 18 03/12/21 12:00 BP 126/72 03/12/21 12:00 Pulse Ox 90 L 03/12/21 12:00 Oxygen Flow Rate 2 03/04/21 13:56 Body Mass Index 29.4 Const: Other: Constitutional : Alert, oriented, not in distress Neck : Normal inspection, Supple Cardiovascular : RRR, S1 S2, no lower extremity edema Respiratory : For bilateral air entry, decreased mainly and the left lower lobe, no crackles, wheezes or rhonchi Gastrointestinal: soft, lax, Normal bowel sounds, Non tender Skin : Warm/Dry, No rash Neurological : Alert & oriented x3, No focal deficit Discharge Plan Discharge Patient Disposition: Home, Self-Care Discharge Diagnosis: Community-acquired pneumonia Referrals: [facility] [Primary Care Provider] - 1 Week Discharge Medications: New doxycycline hyclate 100 mg Tablet 100 mg PO Q12H Qty: 10 RF: 0 Continued methadone 5 mg/5 mL Solution 140 mg PO DAILY RF: 0 Discharge Orders: Discharge Order (Routine); Ordered 03/12/21 Ordered By: Patricia Prince Diet: advance to usual diet Activity on Discharge: As tolerated Stand Alone Forms: Patient Portal Discharge page Care Plan Goals: Read below Health Concerns: Read below Plan of Treatment: You were admitted to the hospital for evaluation of difficulty breathing. Found to have low oxygen level as images reviewed chest were consistent with pneumonia. She you were evaluated by infectious disease specialist and treated with IV antibiotics with good response over the course of hospital stay. With your liver function test was noticed to be elevated as a result of infection but numbers has been trending down since then. He Assessment: Continue doxycycline for 5 more days Discharge Date/Time: 03/12/21 12:45
[2021-03-13 08:58] LABS: HCV Genotype PCR Not Detected
== END 2021-03-12 12:45 | disposition home or self-care (01) | DRG 720 ==
LOC: HO.ED 15:14 → HO.IMC 20:17
PROVIDERS: Internal Medicine; Admitting Provider Hospitalist; Emergency Provider Emergency Medicine; Visit Provider Student in an Organized Health Care Education/Training Program
DX: A41.9 Sepsis, unspecified organism (principal); J96.01 Acute respiratory failure with hypoxia; J69.0 Pneumonitis due to inhalation of food and vomit; A48.1 Legionnaires' disease; M62.82 Rhabdomyolysis; F11.20 Opioid dependence, uncomplicated; E87.1 Hypo-osmolality and hyponatremia; D72.829 Elevated white blood cell count, unspecified; R31.9 Hematuria, unspecified; R65.20 Severe sepsis without septic shock; Z20.822 Contact with and (suspected) exposure to COVID-19
CPT/HCPCS: 11104; 36415; 71045; 71046; 71275; 74177; 80048; 80076; 80202; 80307; 81001; 82550; 82947; 83605; 83615; 83735; 83880; 84145; 84484; 85007; 85025; 85027; 85379; 85610; 85730; 86140; 86704; 86706; 86709; 86803; 87040; 87340; 87389; 87449; 87633; 87635; 87640; 87641; 87899; 92610; 93005; 94640; 99285; J0456; J0696; J1650; J2543; J3370; Q9967

== ENCOUNTER → 2021-07-01 10:31 | Outpatient (REF) | payer OTHER, SELFPAY ==
--- NOTE | 2021-07-01 10:55 | ECG_ITS ---
Test Reason : QT PROLONGATION Blood Pressure : / mmHG Vent. Rate : 067 BPM Atrial Rate : 067 BPM P-R Int : 148 ms QRS Dur : 090 ms QT Int : 412 ms P-R-T Axes : 062 057 047 degrees QTc Int : 435 ms Normal sinus rhythm Nonspecific T wave abnormality Abnormal ECG When compared with ECG of 04-MAR-2021 15:09, Vent. rate has decreased BY 44 BPM Nonspecific T wave abnormality is now Present Referred By: Sheri Gilliam Electronically Signed By:EDEN NESBITT
== END ==
LOC: HO.CARD 10:31
PROVIDERS: PCP Internal Medicine; Visit Provider Family Medicine
DX: I45.81 Long QT syndrome (principal); Z88.6 Allergy status to analgesic agent; Z79.891 Long term (current) use of opiate analgesic
CPT/HCPCS: 93005

== ENCOUNTER 2022-03-09 07:47 | Emergency (ER) | payer OTHER, SELFPAY ==
[2022-03-09 07:53] VITALS: BP 111/87; PULSE 97; RESP 19; TEMP 36.1; O2SAT 98; BMI 30.9
--- NOTE | 2022-03-09 08:10 | ED_ITS ---
HPI - Nausea/Vomiting/Diarrhea General Chief complaint: Nausea/Vomiting/Diarrhea Stated complaint: vomiting Time Seen by Provider: 03/09/22 08:08 Source: patient and family Mode of arrival: ambulatory Limitations: no limitations History of Present Illness HPI Narrative: 27 years old male came in for evaluation of nausea, vomiting, and nonbloody watery diarrhea. Patient eat check-in and cheese last night shortly after patient started to have nausea vomiting, followed by abdominal cramps and nonbloody watery diarrhea, no sick contacts, patient thinks that the checking he ate was not good, no recent travel no recent use antibiotic. No fever chills. While patient was waiting in the waiting room patient had nonbloody watery diarrhea that he could not control and multiple both of nausea and vomiting. Related Data Home Medications Medication Instructions Recorded Confirmed methadone 5 mg/5 mL oral solution 140 mg PO DAILY 03/04/21 03/09/22 Previous Rx's Medication Instructions Recorded doxycycline hyclate 100 mg tablet 100 mg PO Q12H #10 tabs 03/12/21 Allergies Allergy/AdvReac Type Severity Reaction Status Date / Time hydrocodone [Vicodin] Allergy Unknown stomach Verified 03/04/21 15:15 upset Review of Systems Review of Systems: All other systems are reviewed and are negative Constitutional: Reports as per HPI and Reports no additional constitutional complaints Eyes: Reports as per HPI and Reports no additional eye complaints Reports system reviewed and no additional complaints, except as documented Cardiovascular: Reports as per HPI and Reports no additional cardiovascular complaints Respiratory: Reports as per HPI and Reports no additional respiratory complaints Gastrointestinal: Reports as per HPI and Reports no additional gastrointestinal complaints Genitourinary: Reports no additional female genitourinary complaints Musculoskeletal: Reports no additional musculoskeletal complaints Skin/Breast: Reports system reviewed and no additional complaints, except as docu Psychiatric: Reports no additional psychiatric complaints Endocrine: Reports no additional endocrine complaints Hematologic/Lymphatic: Reports no additional hematologic/lymphatic complaints Allergic/Immunologic: Reports no additional allergic/immunologic complaints Reports system reviewed and no additional complaints, except as documented and Reports Abnormal speech present [facility] Past Medical History Medical History Opiate use Respiratory failure with hypoxia Respiratory failure with hypoxia Substance abuse or dependence Social History Social History Household Members: None Housing: Apartment Alcohol intake: never Patient Tobacco Use Status: Never used Tobacco Substance Use Type: Crack/Cocaine Advance Directives: No Advance Directives Information Provided: No service: No Current occupational status: disabled Physical Exam Vital Signs: Vital Signs: Last Vital Signs Temp 97 F 03/09/22 07:53 Pulse 97 03/09/22 07:53 Resp 19 03/09/22 07:53 BP 111/87 03/09/22 07:53 Pulse Ox 98 03/09/22 07:53 O2 Del Method 03/09/22 07:53 BMI result Body Mass Index 30.9 Vital signs have been reviewed as appeared to be correct. Blood pressure normal. Heart rate normal. Respiration rate normal. Temperature normal. Oxygen saturation normal. Appearance: Alert. Oriented X3. No acute distress. Head: Normal external exam. Normocephalic. Atraumatic. No Hernandez signs noted. No raccoon eyes noted Eyes: PERRLA. EOMI. Conjunctiva and sclera normal. Eyelids normal. ENT: TM's Normal. Pharynx normal. Uvula midline. Moist mucous membranes. No trismus noted. No drooling noted. No muffled voice noted. Neck: Normal inspection. Neck supple. FROM. No adenopathy. Thyroid Normal. No meningeal signs. No neck mass noted. CVS: Normal heart rate and rhythm. Heart sound normal. No murmurs noted. Pulses normal throughout. Respiratory: No respiratory distress. Painless inspiration. Breath sounds normal. No wheezes/rales/rhonchi noted. Chest nontender. No accessory muscle usage noted or decreased air movement noted. Abdomen: Soft and nontender. Bowel sounds normal in all 4 quadrants. No distention noted. No organomegaly noted. No visible injury noted. Back: No CVA tenderness. Full range of motion noted. Skin: Skin warm and dry. Normal skin color. Normal skin turgor. No rashes/lesions/lacerations noted. Extremities: No lower extremity edema. Extremities exhibit normal range of motion. Extremities nontender. Neuro: Oriented X 3. Cranial nerve exam: II-XII are grossly intact No motor deficit. No sensory deficit. Reflexes normal. Course Course Course Narrative: 27 years old male came in with nausea, vomiting, and diarrhea after eating expiring chicken , labs revealing leukocytosis which patient has a history of chronic elevation of WBCs. patient emergency department received IV hydration and 1 dose of Zofran, patient now is able to tolerate p.o. intake with no nausea and vomiting. Will discharge the patient follow-up with PCP. MDM - Nausea/Vomiting/Diarrhea Lab Data Attestation: I reviewed the patient's lab results. Result diagrams: 03/09/22 08:24 03/09/22 08:24 Labs: Lab Results 03/09/22 03/09/22 Range/Units 08:24 08:24 WBC 13.1 H (4.8-10.8) X10*3/uL RBC 4.65 (4.60-5.80) X10*6/uL Hgb 14.9 (14.0-18.0) g/dl Hct 45.3 (42.0-52.0) % MCV 97.4 (80.0-98.0) fL MCH 32.0 (27.0-33.0) pg MCHC 32.9 (31.0-36.0) g/dl RDW 12.0 (11.0-16.0) % Plt Count 316 (160-400) X10*3/uL MPV 9.1 L (9.4-12.4) fL Immature Gran % (Auto) 0.6 H (0.0-0.4) % Neut % (Auto) 72.9 (45-73) % Lymph % (Auto) 20.1 (20-40) % [place] % (Auto) 5.0 (2-11) % Eos % (Auto) 1.2 (0-4) % Baso % (Auto) 0.2 (0-2) % Lymph # (Auto) 2.6 (1.2-4.9) X10*3/uL [place] # (Auto) 0.7 (0.1-1.2) X10*3/uL Eos # (Auto) 0.2 (0.0-0.4) X10*3/uL Baso # (Auto) 0.0 (0.0-0.2) X10*3/uL Abs Immat Gran (auto) 0.08 H (0.00-0.03) X10*3/uL Absolute Neuts (auto) 9.6 H (2.0-8.3) x10*3/uL Absolute Nucleated RBC 0.000 (0.0-0.012) X10*3/uL Nucleated RBC % (auto) 0.0 (0.0-0.2) /100WBC Sodium 140 (135-145) mmol/L Potassium 4.5 (3.3-5.1) mmol/L Chloride 104 (96-108) mmol/L Carbon Dioxide 27 (22-29) mmol/L Anion Gap 14 (12-20) BUN 13 (9-16) mg/dL Creatinine 1.13 (0.5-1.4) mg/dL Estim Creat Clear Calc 113.2 Estimated GFR > 60 Random Glucose 172 H D (60-115) mg/dL Calcium 9.7 D (8.4-10.2) mg/dL Total Bilirubin 0.7 (0.0-1.0) mg/dL Direct Bilirubin 0.2 (0.0-0.5) mg/dL AST 23 D (5-37) U/L ALT 23 (0-40) U/L Alkaline Phosphatase 106 D (39-117) U/L Total Protein 8.0 (6.5-8.0) g/dL Albumin 4.7 D (3.5-5.0) g/dL Lipase 14 (8-78) U/L Discharge Plan Discharge Clinical Impression: Gastroenteritis, Dehydration Patient Disposition: Home, Self-Care Instructions: Gastroenteritis (ED) Prescriptions: No Action methadone 5 mg/5 mL Solution 140 mg PO DAILY doxycycline hyclate 100 mg Tablet 100 mg PO Q12H Qty: 10 0RF Referrals: Magui Kumar MD [Primary Care Provider] -
[2022-03-09] MEDS: 0.9 % Sodium Chloride 1,000 ML 999 ML IV (08:25)
[2022-03-09] MEDS: Loperamide HCl 2 MG CAPSULE 4 MG PO (08:25)
[2022-03-09] MEDS: Famotidine/PF 20 MG/2 ML VIAL IVPUSH (08:25)
[2022-03-09] MEDS: ondansetron HCL 4 MG/2 ML VIAL IVPUSH (08:25)
[2022-03-09 08:31] LABS: MANUAL DIFF FLAG NO
[2022-03-09 08:42] LABS: Basophils Percent Auto 0.2 % (0-2); Eosinophils Absolute Auto 0.2 X10*3/uL (0.0-0.4); Eosinophils Percent Auto 1.2 % (0-4); Hematocrit 45.3 % (42.0-52.0); Hemoglobin 14.9 g/dl (14.0-18.0); Imm Gran Abs Auto 0.08 X10*3/uL (0.00-0.03); Imm Gran Pct Auto 0.6 % (0.0-0.4); Lymphocytes Absolute Auto 2.6 X10*3/uL (1.2-4.9); Lymphocytes Percent Auto 20.1 % (20-40); Mean Corpuscular HGB Conc 32.9 g/dl (31.0-36.0); Mean Corpuscular Volume 97.4 fL (80.0-98.0); Mean Platelet Volume 9.1 fL (9.4-12.4); Monocytes Absolute Auto 0.7 X10*3/uL (0.1-1.2); Neutrophils Absolute Auto 9.6 x10*3/uL (2.0-8.3); Neutrophils Percent Auto 72.9 % (45-73); Platelet Count 316 X10*3/uL (160-400); Red Blood Count 4.65 X10*6/uL (4.60-5.80); White Blood Count 13.1 X10*3/uL (4.8-10.8)
[2022-03-09 08:54] LABS: Alanine Aminotransferase 23 U/L (0-40); Albumin Level 4.7 g/dL (3.5-5.0); Alkaline Phosphatase 106 U/L (39-117); Anion Gap 14 (12-20); Aspartate Amino Transferase 23 U/L (5-37); Bilirubin Direct 0.2 mg/dL (0.0-0.5); Bilirubin Total 0.7 mg/dL (0.0-1.0); Blood Urea Nitrogen 13 mg/dL (9-16); Calcium 9.7 mg/dL (8.4-10.2); Carbon Dioxide 27 mmol/L (22-29); Chloride 104 mmol/L (96-108); Creatinine Clr Calc Pharmacy 113.2; Estimated Glomerular Filt Rate > 60; Glucose Random 172 mg/dL (60-115); Lipase 14 U/L (8-78); Potassium 4.5 mmol/L (3.3-5.1); Sodium 140 mmol/L (135-145)
--- NOTE | 2022-03-09 09:29 | PC.NURSE ---
Pt comes in inc of stool and vomiting, states he ate bad chicken and cheese last night, unable to control bowels. Pt is A&OX4, independent, diffuse abd pain with TTP in all 4 quadrants. IV established, medicated as per MAR orders. Veronica TAO working on methadone verification at this time. Call sousa within reach Will continue to monitor.
[2022-03-09] MEDS: methADONE HCl 20 MG/2 ML ORAL.CONC 140 MG PO (11:19)
[2022-03-09 11:20] VITALS: BP 130/64; PULSE 77; RESP 12; O2SAT 99
== END 2022-03-09 11:38 | disposition home or self-care (01) ==
PROVIDERS: Emergency Provider Emergency Medicine; PCP Internal Medicine
DX: K52.9 Noninfective gastroenteritis and colitis, unspecified (principal); E86.0 Dehydration
CPT/HCPCS: 36415; 80048; 80076; 83690; 85025; 96361; 96374; 96375; 99284; J2405

== ENCOUNTER 2022-04-01 00:29 | Emergency (ER) | payer OTHER, SELFPAY ==
--- NOTE | ~2022-04-01 | CT_ITS ---
EXAMINATION: CT THORACIC SPINE WITHOUT CONTRAST CT LUMBAR SPINE WITHOUT CONTRAST CLINICAL INFORMATION: Thoracic and lumbar pain. Fever. COMPARISON: None TECHNIQUE: Multidetector volumetric imaging of the thoracic and lumbar spine performed without IV contrast. Coronal and sagittal reformatted images are obtained and reviewed. This CT examination was performed using dose optimization techniques as appropriate, variously including the following: *Automated exposure control *Adjustment of mA and/or kV according to patient size (this includes techniques or standardized protocols for targeted exams where dose is matched to indication/reason for exam; i.e. extremities or head) *Use of iterative reconstruction technique DLP: 1312 mGy-cm FINDINGS: No fracture or subluxation. Vertebral body height and alignment maintained. Disc spaces are maintained. The sacroiliac joints are symmetric. The visualized sacrum is intact. Anterior fusion and sclerosis of the sacroiliac joints bilaterally. No bony spinal canal narrowing or neuroforaminal narrowing seen. The visualized lungs are clear. The visualized cardiac structures are unremarkable. The visualized intra-abdominal and pelvic structures show no acute abnormality. Symmetric appearance of the paraspinal musculature. CT/CT lumbar spine wo con IMPRESSION: Unremarkable appearance of the thoracolumbar spine. No bony or soft tissue abnormality.
--- NOTE | ~2022-04-01 | XR_ITS ---
EXAMINATION: XR CHEST CLINICAL INFORMATION: Fever COMPARISON: 03/10/2021 TECHNIQUE: Frontal view of the chest was obtained. FINDINGS: The lungs are well expanded. There is no focal consolidation, edema, or effusion. No pneumothorax. The cardiomediastinal silhouette is within normal limits. No acute osseous abnormality. XR/XR chest 1V IMPRESSION: Clear lungs.
--- NOTE | ~2022-04-01 | CT_ITS ---
EXAMINATION: CT THORACIC SPINE WITHOUT CONTRAST CT LUMBAR SPINE WITHOUT CONTRAST CLINICAL INFORMATION: Thoracic and lumbar pain. Fever. COMPARISON: None TECHNIQUE: Multidetector volumetric imaging of the thoracic and lumbar spine performed without IV contrast. Coronal and sagittal reformatted images are obtained and reviewed. This CT examination was performed using dose optimization techniques as appropriate, variously including the following: *Automated exposure control *Adjustment of mA and/or kV according to patient size (this includes techniques or standardized protocols for targeted exams where dose is matched to indication/reason for exam; i.e. extremities or head) *Use of iterative reconstruction technique DLP: 1312 mGy-cm FINDINGS: No fracture or subluxation. Vertebral body height and alignment maintained. Disc spaces are maintained. The sacroiliac joints are symmetric. The visualized sacrum is intact. Anterior fusion and sclerosis of the sacroiliac joints bilaterally. No bony spinal canal narrowing or neuroforaminal narrowing seen. The visualized lungs are clear. The visualized cardiac structures are unremarkable. The visualized intra-abdominal and pelvic structures show no acute abnormality. Symmetric appearance of the paraspinal musculature. CT/CT thoracic spine wo con IMPRESSION: Unremarkable appearance of the thoracolumbar spine. No bony or soft tissue abnormality.
[2022-04-01 00:55] VITALS: BP 133/80; PULSE 96; RESP 18; TEMP 39.2; O2SAT 99; BMI 31.7
--- NOTE | 2022-04-01 01:02 | ECG_ITS ---
Test Reason : SEPIS Blood Pressure : / mmHG Vent. Rate : 084 BPM Atrial Rate : 084 BPM P-R Int : 158 ms QRS Dur : 090 ms QT Int : 262 ms P-R-T Axes : 072 059 041 degrees QTc Int : 309 ms Normal sinus rhythm Nonspecific T wave abnormality Abnormal ECG When compared with ECG of 01-JUL-2021 10:59, QT has shortened Referred By: Generic ED Physician Electronically Signed By:Demetrio Iqbal
[2022-04-01] MEDS: Acetaminophen 325 MG TABLET 650 MG PO (01:11)
--- NOTE | 2022-04-01 01:27 | ED.FEVER ---
HPI - Fever General Chief Complaint: Fever Stated Complaint: pneumonia ? Time Seen by Provider: 04/01/22 01:16 Source: patient Mode of arrival: ambulatory Limitations: no limitations History of Present Illness HPI Narrative: Patient comes to emergency room complaining of thoracic and lumbar back pain, denies any injuries. Patient also complaining of a high fever up to 102. On arrival to the emergency room, temperature is 102.6 degrees. Patient states that approximately 1 year ago he had a similar presentation, initially he had high fever, back pain and then developed shortness of breath. Patient was diagnosed with pneumonia. At this time, patient has no shortness of breath. Reviewing patient's records, patient had Legionella. Patient denies coughing, no vomiting or diarrhea, no abdominal pain, no UTI or URI symptoms. Patient denies using IV drugs. Patient admits to snorting heroin earlier today. Related Data Home Medications Medication Instructions Recorded Confirmed methadone 5 mg/5 mL oral solution 140 mg PO DAILY 03/04/21 03/09/22 Previous Rx's Medication Instructions Recorded doxycycline hyclate 100 mg tablet 100 mg PO Q12H #10 tabs 03/12/21 nirmatrelvir 300 mg (150 mg x See Rx Instructions PO .COMPLEX 04/01/22 2)-ritonavir 100 mg tablet (EUA) #30 tabs (Paxlovid 300 mg () Allergies Allergy/AdvReac Type Severity Reaction Status Date / Time hydrocodone [Vicodin] Allergy Unknown stomach Verified 03/04/21 15:15 upset Review of Systems Review of Systems: Constitutional : No Weight loss, complaining of fever, chills, fatigue and generalized malaise ENT/Mouth : No Hearing loss, No Ear Pain, No Nasal Congestion, No Sinus Pain, No Hoarseness, No sore throat, No Rhinorrhea, No Swallowing Difficulty Eyes: No Eye Pain, No Swelling, No Redness, No Foreign Body, No Discharge, No Vision Changes Cardiovascular : No Chest Pain, No SOB, No Dyspnea on Exertion, No Orthopnea, No Edema, No Palpitations Respiratory : No Cough, No Sputum, No Wheezing, No Smoke Exposure, No Dyspnea Gastrointestinal : No Nausea, No Vomiting, No Diarrhea, No Constipation, No abdominal Pain, No Hematochezia, No Melena Genitourinary : no irregular bleeding, No Dysuria, No Urinary Frequency, No Hematuria, No Urinary Incontinence, No Urgency, No Flank Pain, No Urinary Flow Changes, No Hesitancy Musculoskeletal : No joint pain, complaining of myalgias, back pain especially in the thoracic and lumbar area Skin : No Skin Lesions, No rash Neuro : No Weakness, No Numbness, No Paresthesias, No Loss of Consciousness, No Dizziness, No Headache Psych : No Anxiety/Panic, No Depression, No SI/HI/AH/VH, No Social Issues, Heme/Lymph: No Bruising, No Bleeding,No Lymphadenopathy Endocrine : No Polyuria, No Polydipsia, No Temperature Intolerance [facility] Past Medical History Medical History Opiate use Respiratory failure with hypoxia Respiratory failure with hypoxia Substance abuse or dependence Social History Social History Household Members: None Housing: Apartment Alcohol intake: never Patient Tobacco Use Status: Never used Tobacco Substance Use Type: Crack/Cocaine Advance Directives: No service: No Current occupational status: disabled Physical Exam Vital Signs: Vital Signs: Last Vital Signs Temp 99.3 F 04/01/22 03:15 Pulse 81 04/01/22 03:15 Resp 12 04/01/22 03:15 BP 126/69 04/01/22 03:15 Pulse Ox 100 04/01/22 03:15 O2 Del Method 04/01/22 03:15 BMI result Body Mass Index 31.7 Const: Other: Appearance: Alert. Oriented X3. Ill-appearing Eyes: Pupils equal, round and reactive to light. ENT: Pharynx normal. Neck: Normal inspection. Neck supple. No lymph nodes noted. No crepitus CVS: Normal heart rate and rhythm. Pulses normal. Normal S1 and S2 Respiratory: No respiratory distress. Breath sounds normal. No Wheezing. No rales Abdomen: Soft and nontender. No rigidity. No distention. Back: Pain to palpation over the lumbar and thoracic spine, also pain to palpation over the paraspinal muscles. No CVA tenderness Skin: Skin very warm to touch. Normal skin color. Normal skin turgor. Extremities: No lower extremity edema. No Lacerations. No Rash Neuro: Oriented X 3. No motor deficit. No sensory deficit. Moving all extremities. No slurred speech. CN 2 through 12 grossly intact Psych: calm, cooperative, normal affect Course Course Course Narrative: Sepsis alert has been called. At this time patient's blood pressure is normal, patient does have a temperature 102.6 degrees. All the labs and imaging are pending. Patient is being given 2 L IV fluids, based on an ideal weight of 64 kg, patient is overweight. Also, patient was given prophylactically levofloxacin, patient has history of similar presentations secondary to Legionella. Patient's white blood cell count lactic acid within normal limits. Patient tested positive for COVID-19. Patient is not immunized for COVID-19 Lumbar and thoracic spine CT negative. No abscess is visualized. All of patient's symptoms including myalgia and malaise secondary to COVID-19 chest x-ray is negative. Patient's oxygen saturation is 100% on room air. Prescription for Paxlovid sent to pharmacy After a dose of Tylenol and ibuprofen, patient feeling better, no longer having significant back pain, temperature 99.3 degrees MDM - Fever Lab Data Result diagrams: 04/01/22 01:29 04/01/22 01:29 Labs: Lab Results 04/01/22 04/01/22 04/01/22 Range/Units 01:28 01:29 01:29 WBC 7.8 (4.8-10.8) X10*3/uL RBC 4.15 L (4.60-5.80) X10*6/uL Hgb 13.2 L (14.0-18.0) g/dl Hct 39.4 L (42.0-52.0) % MCV 94.9 (80.0-98.0) fL MCH 31.8 (27.0-33.0) pg MCHC 33.5 (31.0-36.0) g/dl RDW 12.0 (11.0-16.0) % Plt Count 254 (160-400) X10*3/uL MPV 9.2 L (9.4-12.4) fL Immature Gran % (Auto) 0.6 H (0.0-0.4) % Neut % (Auto) 81.5 H (45-73) % Lymph % (Auto) 5.9 L (20-40) % [place] % (Auto) 10.8 (2-11) % Eos % (Auto) 0.9 (0-4) % Baso % (Auto) 0.3 (0-2) % Lymph # (Auto) 0.5 L (1.2-4.9) X10*3/uL [place] # (Auto) 0.8 (0.1-1.2) X10*3/uL Eos # (Auto) 0.1 (0.0-0.4) X10*3/uL Baso # (Auto) 0.0 (0.0-0.2) X10*3/uL Abs Immat Gran (auto) 0.05 H (0.00-0.03) X10*3/uL Absolute Neuts (auto) 6.3 (2.0-8.3) x10*3/uL Absolute Nucleated RBC 0.000 (0.0-0.012) X10*3/uL Nucleated RBC % (auto) 0.0 (0.0-0.2) /100WBC Sodium 140 (135-145) mmol/L Potassium 4.0 (3.3-5.1) mmol/L Chloride 104 (96-108) mmol/L Carbon Dioxide 25 (22-29) mmol/L Anion Gap 15 (12-20) BUN 9 (9-16) mg/dL Creatinine 1.05 (0.5-1.4) mg/dL Estim Creat Clear Calc 119.5 Estimated GFR > 60 Random Glucose 83 D (60-115) mg/dL Lactic Acid 1.0 (0.5-2.0) mmol/L Calcium 9.3 (8.4-10.2) mg/dL Total Bilirubin 0.5 (0.0-1.0) mg/dL AST 21 (5-37) U/L ALT 14 (0-40) U/L Alkaline Phosphatase 88 (39-117) U/L Troponin I High Sens (<3.5-35.0) ng/L Total Protein 7.8 (6.5-8.0) g/dL Albumin 4.7 (3.5-5.0) g/dL Urine Color Urine Appearance Urine pH (5.0-8.0) Ur Specific [place] (1.005-1.025) Urine Protein (NEG-TRACE) MG/DL Urine Glucose (UA) (NEG) MG/DL Urine Ketones (NEG) MG/DL Urine Blood (NEG) Urine Nitrite (NEG) Ur Leukocyte Esterase (NEG) COVID-19 (CHANDA) (Negative) COVID-19 Clin Com Influenza Type A (MALU) (Negative) Influenza Type B (MALU) (Negative) Influenza A & B Note 04/01/22 04/01/22 04/01/22 Range/Units 01:29 01:29 01:29 WBC (4.8-10.8) X10*3/uL RBC (4.60-5.80) X10*6/uL Hgb (14.0-18.0) g/dl Hct (42.0-52.0) % MCV (80.0-98.0) fL MCH (27.0-33.0) pg MCHC (31.0-36.0) g/dl RDW (11.0-16.0) % Plt Count (160-400) X10*3/uL MPV (9.4-12.4) fL Immature Gran % (Auto) (0.0-0.4) % Neut % (Auto) (45-73) % Lymph % (Auto) (20-40) % [place] % (Auto) (2-11) % Eos % (Auto) (0-4) % Baso % (Auto) (0-2) % Lymph # (Auto) (1.2-4.9) X10*3/uL [place] # (Auto) (0.1-1.2) X10*3/uL Eos # (Auto) (0.0-0.4) X10*3/uL Baso # (Auto) (0.0-0.2) X10*3/uL Abs Immat Gran (auto) (0.00-0.03) X10*3/uL Absolute Neuts (auto) (2.0-8.3) x10*3/uL Absolute Nucleated RBC (0.0-0.012) X10*3/uL Nucleated RBC % (auto) (0.0-0.2) /100WBC Sodium (135-145) mmol/L Potassium (3.3-5.1) mmol/L Chloride (96-108) mmol/L Carbon Dioxide (22-29) mmol/L Anion Gap (12-20) BUN (9-16) mg/dL Creatinine (0.5-1.4) mg/dL Estim Creat Clear Calc Estimated GFR Random Glucose (60-115) mg/dL Lactic Acid (0.5-2.0) mmol/L Calcium (8.4-10.2) mg/dL Total Bilirubin (0.0-1.0) mg/dL AST (5-37) U/L ALT (0-40) U/L Alkaline Phosphatase (39-117) U/L Troponin I High Sens < 3.5 (<3.5-35.0) ng/L Total Protein (6.5-8.0) g/dL Albumin (3.5-5.0) g/dL Urine Color Urine Appearance Urine pH (5.0-8.0) Ur Specific [place] (1.005-1.025) Urine Protein (NEG-TRACE) MG/DL Urine Glucose (UA) (NEG) MG/DL Urine Ketones (NEG) MG/DL Urine Blood (NEG) Urine Nitrite (NEG) Ur Leukocyte Esterase (NEG) COVID-19 (CHANDA) Positive A (Negative) COVID-19 Clin Com See Note Influenza Type A (MALU) Negative (Negative) Influenza Type B (MALU) Negative (Negative) Influenza A & B Note See Note 04/01/22 Range/Units 03:23 WBC (4.8-10.8) X10*3/uL RBC (4.60-5.80) X10*6/uL Hgb (14.0-18.0) g/dl Hct (42.0-52.0) % MCV (80.0-98.0) fL MCH (27.0-33.0) pg MCHC (31.0-36.0) g/dl RDW (11.0-16.0) % Plt Count (160-400) X10*3/uL MPV (9.4-12.4) fL Immature Gran % (Auto) (0.0-0.4) % Neut % (Auto) (45-73) % Lymph % (Auto) (20-40) % [place] % (Auto) (2-11) % Eos % (Auto) (0-4) % Baso % (Auto) (0-2) % Lymph # (Auto) (1.2-4.9) X10*3/uL [place] # (Auto) (0.1-1.2) X10*3/uL Eos # (Auto) (0.0-0.4) X10*3/uL Baso # (Auto) (0.0-0.2) X10*3/uL Abs Immat Gran (auto) (0.00-0.03) X10*3/uL Absolute Neuts (auto) (2.0-8.3) x10*3/uL Absolute Nucleated RBC (0.0-0.012) X10*3/uL Nucleated RBC % (auto) (0.0-0.2) /100WBC Sodium (135-145) mmol/L Potassium (3.3-5.1) mmol/L Chloride (96-108) mmol/L Carbon Dioxide (22-29) mmol/L Anion Gap (12-20) BUN (9-16) mg/dL Creatinine (0.5-1.4) mg/dL Estim Creat Clear Calc Estimated GFR Random Glucose (60-115) mg/dL Lactic Acid (0.5-2.0) mmol/L Calcium (8.4-10.2) mg/dL Total Bilirubin (0.0-1.0) mg/dL AST (5-37) U/L ALT (0-40) U/L Alkaline Phosphatase (39-117) U/L Troponin I High Sens (<3.5-35.0) ng/L Total Protein (6.5-8.0) g/dL Albumin (3.5-5.0) g/dL Urine Color YELLOW Urine Appearance CLEAR Urine pH 8.0 (5.0-8.0) Ur Specific [place] 1.020 (1.005-1.025) Urine Protein NEG (NEG-TRACE) MG/DL Urine Glucose (UA) NEG (NEG) MG/DL Urine Ketones 5 (NEG) MG/DL Urine Blood NEG (NEG) Urine Nitrite NEG (NEG) Ur Leukocyte Esterase NEG (NEG) COVID-19 (CHANDA) (Negative) COVID-19 Clin Com Influenza Type A (MALU) (Negative) Influenza Type B (MALU) (Negative) Influenza A & B Note Imaging Data Chest x-ray: Radiologist's impression: INDINGS: The lungs are well expanded. There is no focal consolidation, edema, or effusion. No pneumothorax. The cardiomediastinal silhouette is within normal limits. No acute osseous abnormality. XR/XR chest 1V IMPRESSION: Clear lungs. ? Thoracolumbar CT scan: Radiologist's impression: FINDINGS: No fracture or subluxation. Vertebral body height and alignment maintained. Disc spaces are maintained. The sacroiliac joints are symmetric. The visualized sacrum is intact. Anterior fusion and sclerosis of the sacroiliac joints bilaterally. No bony spinal canal narrowing or neuroforaminal narrowing seen. The visualized lungs are clear. The visualized cardiac structures are unremarkable. The visualized intra-abdominal and pelvic structures show no acute abnormality. Symmetric appearance of the paraspinal musculature. CT/CT lumbar spine wo con IMPRESSION: Unremarkable appearance of the thoracolumbar spine. No bony or soft tissue abnormality.? Discharge Plan Discharge Clinical Impression: COVID-19 Patient Disposition: Home, Self-Care Instructions: COVID-19 (Coronavirus Disease 2019) (ED) Additional Instructions: Please follow-up with your primary care physician tomorrow. If you have any worsening or new symptoms, please return to the emergency room or call 911 Prescriptions: New Paxlovid (EUA) 150 mg x 2- 100 mg tablet See Rx Instructions .ROUTE .COMPLEX Qty: 30 0RF Rx Instructions: take TWO 150 mg tablets of nirmatrelvir with ONE 100 mg tablet of ritonavir twice daily for 5 days No Action methadone 5 mg/5 mL Solution 140 mg PO DAILY doxycycline hyclate 100 mg Tablet 100 mg PO Q12H Qty: 10 0RF Stand Alone Forms: Work/School Release
[2022-04-01 01:36] LABS: MANUAL DIFF FLAG NO
[2022-04-01 01:45] VITALS: BP 137/71; PULSE 83; RESP 12; O2SAT 97
[2022-04-01 01:45] LABS: Basophils Percent Auto 0.3 % (0-2); Eosinophils Absolute Auto 0.1 X10*3/uL (0.0-0.4); Eosinophils Percent Auto 0.9 % (0-4); Hematocrit 39.4 % (42.0-52.0); Hemoglobin 13.2 g/dl (14.0-18.0); Imm Gran Abs Auto 0.05 X10*3/uL (0.00-0.03); Imm Gran Pct Auto 0.6 % (0.0-0.4); Lymphocytes Absolute Auto 0.5 X10*3/uL (1.2-4.9); Lymphocytes Percent Auto 5.9 % (20-40); Mean Corpuscular HGB Conc 33.5 g/dl (31.0-36.0); Mean Corpuscular Hemoglobin 31.8 pg (27.0-33.0); Mean Corpuscular Volume 94.9 fL (80.0-98.0); Mean Platelet Volume 9.2 fL (9.4-12.4); Monocytes Absolute Auto 0.8 X10*3/uL (0.1-1.2); Monocytes Percent Auto 10.8 % (2-11); Neutrophils Absolute Auto 6.3 x10*3/uL (2.0-8.3); Neutrophils Percent Auto 81.5 % (45-73); Platelet Count 254 X10*3/uL (160-400); Red Blood Count 4.15 X10*6/uL (4.60-5.80); White Blood Count 7.8 X10*3/uL (4.8-10.8)
[2022-04-01 01:48] LABS: COVID-19 Test Positive (Negative); IDNOW Serial# 16C4AD1C
[2022-04-01 01:55] LABS: Influenza A Negative (Negative); Influenza B2 Negative (Negative)
[2022-04-01 02:05] LABS: Alanine Aminotransferase 14 U/L (0-40); Albumin Level 4.7 g/dL (3.5-5.0); Alkaline Phosphatase 88 U/L (39-117); Anion Gap 15 (12-20); Aspartate Amino Transferase 21 U/L (5-37); Bilirubin Total 0.5 mg/dL (0.0-1.0); Blood Urea Nitrogen 9 mg/dL (9-16); Calcium 9.3 mg/dL (8.4-10.2); Carbon Dioxide 25 mmol/L (22-29); Chloride 104 mmol/L (96-108); Creatinine Clr Calc Pharmacy 119.5; Estimated Glomerular Filt Rate > 60; Glucose Random 83 mg/dL (60-115); Sodium 140 mmol/L (135-145); Total Protein 7.8 g/dL (6.5-8.0)
[2022-04-01 02:07] LABS: Troponin-I High Sensitivity < 3.5 ng/L (<3.5-35.0)
[2022-04-01 02:15] VITALS: BP 125/68; PULSE 85; RESP 16; O2SAT 97
[2022-04-01] MEDS: 0.9 % Sodium Chloride 2,000 ML 999 ML IVCONT (02:18)
[2022-04-01] MEDS: Ibuprofen 600 MG TABLET PO (02:27)
[2022-04-01] MEDS: levoFLOXacin/D5W 750 MG/150 ML PIGGYBACK 100 MG IV (02:34)
[2022-04-01 03:15] VITALS: BP 126/69; PULSE 81; RESP 12; TEMP 37.4; O2SAT 100
[2022-04-01 03:32] LABS: Appearance Urine CLEAR; Color Urine YELLOW; Glucose Urine UA NEG (NEG); Leukocyte Esterase Urine NEG (NEG); Nitrite Urine NEG (NEG); Urine Blood NEG (NEG); Urine Ketones 5 MG/DL (NEG); Urine Protein NEG (NEG-TRACE)
[2022-04-01 04:19] VITALS: BP 115/71; PULSE 92; RESP 13; TEMP 37.2; O2SAT 98
[2022-04-01 04:45] LABS: Lactic Acid 1.8 mmol/L (0.5-2.0)
--- NOTE | 2022-04-01 04:50 | PC.NURSE ---
Patric presented to ED for evaluation of fevers. He appears well on arrival - respirations non-labored, RR WNL, room air sat's 95% or better. no cough noted. He denies chest pain. Shortly after arrival a septic protocol was initiated by Dr. adamson. Labs were obtained but it required multiple nurses and eventually phlebotomy to obtain a second set of blood cultures. because of this delay in being able to obtain a second blood culture, the IV Abx were not initiated until after the second blood culture was obtained. IVF's were initiated and administered per MD order. pt remained alert and oriented x 3, calm and cooperative. he verbalized an understanding of the covid diagnosis and niformed us that he is not vaccinated. Pt took PO fluids without difficulty, voided into bedside urinal without difficulty, and ambulated throughout his room independently and with steady gait. He was discharged at this time.
[2022-04-04 19:41] LABS: Legionella Ag Urine Not Detected (Not Detected)
== END 2022-04-01 04:59 | disposition home or self-care (01) ==
PROVIDERS: Emergency Provider Emergency Medicine; PCP Internal Medicine
DX: U07.1 COVID-19 (principal); R50.9 Fever, unspecified; F11.20 Opioid dependence, uncomplicated
CPT/HCPCS: 36415; 71045; 72128; 72131; 80053; 81003; 83605; 84484; 85025; 87040; 87449; 87502; 87635; 93005; 96361; 96365; 99284; 99285; J1956

== ENCOUNTER 2022-11-28 05:21 | Emergency (ER) | payer OTHER, SELFPAY ==
--- NOTE | ~2022-11-28 | XR_ITS ---
EXAMINATION: XR RIBS, LEFT CLINICAL INFORMATION: Left rib pain after fall. COMPARISON: None TECHNIQUE: 3 views of the left ribs were obtained. FINDINGS: Lungs are clear. No consolidation, pneumothorax, or pleural effusion. The cardiomediastinal silhouette and pulmonary vasculature are normal. Osseous structures are unremarkable. Ribs are intact. No fractures are identified. XR/XR ribs LT min 3V w CXR1V IMPRESSION: Unremarkable chest and left rib exam.
[2022-11-28 05:54] VITALS: BMI 22.6
[2022-11-28 06:17] VITALS: BP 140/79; PULSE 82; RESP 18; O2SAT 98
--- NOTE | 2022-11-28 06:18 | PC.NURSE ---
Pt awake and alert, having disorganized thoughts, pinpoint pupils, reports use of cocaine/heroine use. States its like a symphony in my head, no words when asked about hearing voices. Denies HI. States he has thoughts of cutting himself.
[2022-11-28 07:52] LABS: Appearance Urine Clear; Color Urine Dark Yellow; Glucose Urine UA Negative (Negative); Leukocyte Esterase Urine Negative (Negative); Nitrite Urine Negative (Negative); PH 5.5 (5.0-9.0); Specific Gravity - Urine >= 1.030 (1.005-1.025); UMIC TRIGGER UACC YES; Urine Blood Negative (Negative); Urine Ketones 15 mg/dL (Negative); Urine Protein 30 (1+) mg/dL (Neg-Trace)
[2022-11-28 07:57] LABS: Amphetamine Screen Urine Not Detected (Not Detect); Barbiturates, Urine Not Detected (Not Detect); Benzodiazepines Screen Urine Not Detected (Not Detect); Cannabinoid Screen Urine Not Detected (Not Detect); Cocaine Screen Urine POSITIVE (Not Detect); Fentanyl, urine POSITIVE (Not Detect); Opiate Screen Urine POSITIVE (Not Detect); Phencyclidine Screen Urine Not Detected (Not Detect)
[2022-11-28 08:01] LABS: Bacteria Urine None Seen (None Seen); WBC Urine 0-5 /HPF (0-5)
[2022-11-28 08:02] LABS: COVID-19 Test Negative (Negative); IDNOW Serial# 16C4AD1C
--- NOTE | 2022-11-28 08:13 | ED.GENADULT ---
HPI - General Adult General Chief complaint: General Medical Stated complaint: Body Pain Time Seen by Provider: 11/28/22 06:54 Source: patient and EMS Mode of arrival: EMS Limitations: no limitations History of Present Illness HPI narrative: 27-year-old male came in for evaluation after slipped and fell patient is complaining of left-sided chest wall pain, declined hearing voices, despite patient initially stated that he has thoughts of cutting himself in hearing voices, patient now decline SI or HI or hearing voices. Patient is homeless and lives in the [address] has been slowing since last night patient has no other place to go to. Related Data Home Medications Medication Instructions Recorded Confirmed methadone 5 mg/5 mL oral solution 140 mg PO DAILY 03/04/21 03/09/22 Previous Rx's Medication Instructions Recorded doxycycline hyclate 100 mg tablet 100 mg PO Q12H #10 tabs 03/12/21 nirmatrelvir 300 mg (150 mg See Rx Instructions PO .COMPLEX 04/01/22 x2)-ritonavir 100 mg tablet,dose #30 tabs pack(EUA) (Paxlovid) Allergies Allergy/AdvReac Type Severity Reaction Status Date / Time hydrocodone [Vicodin] Allergy Unknown stomach Verified 03/04/21 15:15 upset Review of Systems Review of Systems: All other systems are reviewed and are negative Constitutional: Reports as per HPI and Reports no additional constitutional complaints Eyes: Reports as per HPI and Reports no additional eye complaints Reports system reviewed and no additional complaints, except as documented Cardiovascular: Reports as per HPI and Reports no additional cardiovascular complaints Respiratory: Reports as per HPI and Reports no additional respiratory complaints Gastrointestinal: Reports as per HPI and Reports no additional gastrointestinal complaints Genitourinary: Reports no additional female genitourinary complaints Musculoskeletal: Reports no additional musculoskeletal complaints Skin/Breast: Reports system reviewed and no additional complaints, except as docu Psychiatric: Reports no additional psychiatric complaints Endocrine: Reports no additional endocrine complaints Hematologic/Lymphatic: Reports no additional hematologic/lymphatic complaints Allergic/Immunologic: Reports no additional allergic/immunologic complaints Reports system reviewed and no additional complaints, except as documented and Reports Abnormal speech present [facility] Past Medical History Medical History Opiate use Respiratory failure with hypoxia Respiratory failure with hypoxia Substance abuse or dependence Social History Social History Household Members: None Housing: Apartment Alcohol intake: never Patient Tobacco Use Status: Never used Tobacco Substance Use Type: Crack/Cocaine Advance Directives: No Advance Directives Information Provided: No service: No Current occupational status: disabled Physical Exam ED Vital Signs: Vital Signs - 24 hr 11/28/22 06:17 11/28/22 10:52 11/28/22 14:40 Pulse Rate 82 76 88 Respiratory Rate 18 13 16 Blood Pressure 140/79 H 122/61 Pulse Oximetry 98 100 96 Oxygen Delivery Method Room Air Room Air Room Air BMI result Body Mass Index 22.6 Vital signs have been reviewed as appeared to be correct. Blood pressure normal. Heart rate normal. Respiration rate normal. Temperature normal. Oxygen saturation normal. Appearance: Alert. Oriented X3. No acute distress. Head: Normal external exam. Normocephalic. Atraumatic. No Hernandez signs noted. No raccoon eyes noted Eyes: PERRLA. EOMI. Conjunctiva and sclera normal. Eyelids normal. ENT: TM's Normal. Pharynx normal. Uvula midline. Moist mucous membranes. No trismus noted. No drooling noted. No muffled voice noted. Neck: Normal inspection. Neck supple. FROM. No adenopathy. Thyroid Normal. No meningeal signs. No neck mass noted. CVS: Normal heart rate and rhythm. Heart sound normal. No murmurs noted. Pulses normal throughout. Respiratory: No respiratory distress. Painless inspiration. Breath sounds normal. No wheezes/rales/rhonchi noted. Chest nontender. No accessory muscle usage noted or decreased air movement noted. Abdomen: Soft and nontender. Bowel sounds normal in all 4 quadrants. No distention noted. No organomegaly noted. No visible injury noted. Back: No CVA tenderness. Full range of motion noted. Skin: Skin warm and dry. Normal skin color. Normal skin turgor. No rashes/lesions/lacerations noted. Extremities: No lower extremity edema. Extremities exhibit normal range of motion. Extremities nontender. Neuro: Oriented X 3. Cranial nerve exam: II-XII are grossly intact No motor deficit. No sensory deficit. Reflexes normal. Course Reevaluation(s) Reevaluation #1: Patient become agitated, bizarre behavior with running in the emergency department trying to escape from security personal in the emergency department, patient require chemical restraint received 5 mg of Haldol and 2 mg of Ativan to come down. Patient also required physical restraining since patient is showing danger to himself and other. Time: 08:51 Reevaluation #2: Start physician observation patient will be waiting for care team for further psych evaluation, vital signs stable. Time: 16:03 Medications Administered Discontinued Medications Generic Name Dose Route Start Last Admin Trade Name Viridiana PRN Reason Stop Dose Admin Diphenhydramine HCl 50 mg 11/28/22 08:37 11/28/22 09:55 Diphenhydramine Hcl 50 Mg/Ml Vial IM 11/28/22 08:38 50 mg ONCE ONE Administration Haloperidol Lactate 5 mg 11/28/22 08:37 11/28/22 09:55 Haloperidol Lactate 5 Mg/Ml Vial IM 11/28/22 08:38 5 mg STAT STA Administration Lorazepam 2 mg 11/28/22 08:37 11/28/22 09:56 Lorazepam 2 Mg/Ml Vial IM 11/28/22 08:38 2 mg STAT STA Administration Medical Decision Making Differential Diagnosis Differential Diagnoses: The differential diagnosis associated with the presentation includes (Substance abuse, electrolyte disturbance, acute psychosis.) Lab Data MDM Lab Attestation statement: I reviewed the patient's lab results. Labs: Lab Results 11/28/22 11/28/22 11/28/22 Range/Units 07:39 07:39 07:39 Urine Color Dark Yellow Urine Appearance Clear Urine pH 5.5 (5.0-9.0) Ur Specific [place] >= 1.030 H (1.005-1.025) Urine Protein 30 (1+) H (Neg-Trace) mg/dL Urine Glucose (UA) Negative (Negative) mg/dL Urine Ketones 15 (Negative) mg/dL Urine Blood Negative (Negative) Urine Nitrite Negative (Negative) Ur Leukocyte Esterase Negative (Negative) Urine RBC 3-5 H (0-2) /HPF Urine WBC 0-5 (0-5) /HPF Ur Squamous Epith Cells 3-5 (0-2) /HPF Urine Bacteria None Seen (None Seen) Hyaline Casts 6-10 (0-2) /LPF Urine Opiates Screen POSITIVE H (Not Detect) Urine Fentanyl Screen POSITIVE H (Not Detect) Ur Barbiturates Screen Not Detected (Not Detect) Ur Phencyclidine Scrn Not Detected (Not Detect) Ur Amphetamines Screen Not Detected (Not Detect) U Benzodiazepines Scrn Not Detected (Not Detect) Urine Cocaine Screen POSITIVE H (Not Detect) U Marijuana (THC) Screen Not Detected (Not Detect) COVID-19 (CHANDA) Negative (Negative) COVID-19 Clin Com See Note Discharge Plan Discharge Clinical Impression: Anxiety, Acute psychosis, Substance abuse Patient Disposition: Still a Patient Prescriptions: No Action methadone 5 mg/5 mL Solution 140 mg PO DAILY doxycycline hyclate 100 mg Tablet 100 mg PO Q12H Qty: 10 0RF Paxlovid (EUA) 150 mg x 2- 100 mg tablet See Rx Instructions .ROUTE .COMPLEX Qty: 30 0RF Rx Instructions: take TWO 150 mg tablets of nirmatrelvir with ONE 100 mg tablet of ritonavir twice daily for 5 days
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
[2022-11-28] MEDS: diphenhydrAMINE HCL 50 MG/ML VIAL IM (09:55)
[2022-11-28] MEDS: Haloperidol Lactate 5 MG/ML VIAL IM (09:55)
[2022-11-28] MEDS: LORazepam 2 MG/ML VIAL IM (09:56)
--- NOTE | 2022-11-28 09:56 | PC.NURSE ---
PT TAJ leg removed from restraints
[2022-11-28 10:52] VITALS: BP 122/61; PULSE 76; RESP 13; O2SAT 100
[2022-11-28 14:40] VITALS: PULSE 88; RESP 16; O2SAT 96
--- NOTE | 2022-11-28 14:40 | PC.NURSE ---
pt remains asleep, breathing unlabored, in NAD. 1:1 at bedside.
[2022-11-28 16:00] VITALS: BP 109/64; PULSE 75; RESP 15; TEMP 36.1; O2SAT 97
--- NOTE | 2022-11-28 17:35 | PC.NURSE ---
unable to complete [place] scale at this time as pt has been sleeping, difficult to wake following medication restraint. will continue to monitor
[2022-11-28 18:10] VITALS: BP 106/62; PULSE 73; RESP 14; O2SAT 99
--- NOTE | 2022-11-28 18:16 | MHC.CARE ---
CARE team clinician attempted to meet with pt but he was unarousable. CARE team will follow up with pt in the morning
[2022-11-28 21:32] LABS: MANUAL DIFF FLAG NO
[2022-11-28 21:34] LABS: Basophils Absolute Auto 0.1 X10*3/uL (0.0-0.2); Basophils Percent Auto 0.6 % (0-2); Eosinophils Absolute Auto 0.1 X10*3/uL (0.0-0.4); Eosinophils Percent Auto 1.3 % (0-4); Hematocrit 41.5 % (42.0-52.0); Hemoglobin 14.5 g/dl (14.0-18.0); Imm Gran Abs Auto 0.02 X10*3/uL (0.00-0.03); Imm Gran Pct Auto 0.3 % (0.0-0.4); Lymphocytes Absolute Auto 3.4 X10*3/uL (1.2-4.9); Lymphocytes Percent Auto 42.5 % (20-40); Mean Corpuscular HGB Conc 34.9 g/dl (31.0-36.0); Mean Corpuscular Hemoglobin 32.6 pg (27.0-33.0); Mean Corpuscular Volume 93.3 fL (80.0-98.0); Mean Platelet Volume 8.7 fL (9.4-12.4); Monocytes Absolute Auto 0.8 X10*3/uL (0.1-1.2); Monocytes Percent Auto 10.3 % (2-11); Neutrophils Absolute Auto 3.6 x10*3/uL (2.0-8.3); Platelet Count 331 X10*3/uL (160-400); Red Blood Count 4.45 X10*6/uL (4.60-5.80); Red Cell Distribution Width 12.1 % (11.0-16.0); White Blood Count 7.9 X10*3/uL (4.8-10.8)
[2022-11-28 21:49] LABS: Ethanol < 10 mg/dL
[2022-11-28 21:50] LABS: Alanine Aminotransferase 19 U/L (0-40); Albumin Level 4.8 g/dL (3.5-5.0); Alkaline Phosphatase 92 U/L (39-117); Anion Gap 17 (12-20); Aspartate Amino Transferase 45 U/L (5-37); Bilirubin Total 1.4 mg/dL (0.0-1.0); Blood Urea Nitrogen 19 mg/dL (9-16); Calcium 9.8 mg/dL (8.4-10.2); Carbon Dioxide 24 mmol/L (22-29); Chloride 102 mmol/L (96-108); Creatinine Clr Calc Pharmacy 130.9; Estimated Glomerular Filt Rate > 60; Glucose Random 67 mg/dL (60-115); Potassium 3.7 mmol/L (3.3-5.1); Sodium 139 mmol/L (135-145); Total Protein 7.7 g/dL (6.5-8.0)
[2022-11-29 03:39] VITALS: BP 110/68; PULSE 100; RESP 18; TEMP 36.6; O2SAT 97
[2022-11-29] MEDS: LORazepam 1 MG TABLET PO (03:47)
--- NOTE | 2022-11-29 05:39 | PC.NURSE ---
Patient is bed appears sleeping, woke up for bathroom use at 0330/appears restless/provider notified/ordered Ativan 1 mg PO administered at 0347 with + effect, asymptomatic withdrawal at this time, missed his Methadone yesterday/methadone dose verification was missed yesterday in main ED/called [facility] clinic at [phone] this morning/clinic is closed on Wednesday/verification pending till Wednesday, patient was unable to assess by care team yesterday because patient was [id number], patient will be evaluated this morning, behavior non concerning, patient is currently not on any home medication except Methadone, will continue to monitor.
--- NOTE | 2022-11-29 09:17 | MHC.CARE ---
Addendum entered by Lina Zhu, [facility] 11/29/22 12:18: Desire is Pts [id number] Original Note: CARE Team left message for Pts aunt Sahra Cadena ([phone])- Pt did not know number. CARE Team obtained number from Jenna AARON
--- NOTE | 2022-11-29 10:04 | HE.PHANOTE ---
Methadone Verification I have confirmed methadone with Patricia at [facility]. Patient last received methadone 140 mg on 11/26/2022 at [facility]. Abi Laurent, PharmD
--- NOTE | 2022-11-29 10:06 | MHC.CARE ---
CARE Team attempted to meet with Pt at 8am not engagable and again at 10am and not engagable
[2022-11-29] MEDS: methADONE HCl 20 MG/2 ML ORAL.CONC 104 MG PO (10:36)
--- NOTE | 2022-11-29 11:47 | PC.NURSE ---
pt requested his methadone. this RN unable to verify last methadone dose at [facility] ([phone]) closed on Sundays. pt reported last dose 104 mg [address] Rosenberg and pharmacy aware. order for one time dose of 104 mg received. med given as documented. pt denies pain, no si/hi. pt sleeping, no complaints.
== END 2022-11-29 16:15 | disposition home or self-care (01) ==
PROVIDERS: Emergency Provider Emergency Medicine; PCP Internal Medicine
DX: F41.9 Anxiety disorder, unspecified (principal); F23 Brief psychotic disorder; F19.10 Other psychoactive substance abuse, uncomplicated; Z20.822 Contact with and (suspected) exposure to COVID-19; F11.20 Opioid dependence, uncomplicated; Z78.1 Physical restraint status; Z79.899 Other long term (current) drug therapy
CPT/HCPCS: 36415; 71101; 80053; 80307; 81001; 82077; 85025; 87635; 96372; 99284; 99285; J1200; J2060; S9485

== ENCOUNTER 2022-12-28 18:17 | Emergency (ER) | payer OTHER, SELFPAY ==
--- NOTE | ~2022-12-28 | XR_ITS ---
EXAMINATION: CHEST 2 VIEWS CLINICAL INFORMATION: chest pain, SOB. COMPARISON: No recent pertinent prior studies are available for comparison. TECHNIQUE: PA and lateral views of the chest obtained. FINDINGS: The lungs are well expanded. No focal infiltrate, effusion, edema, or pneumothorax. Cardiac and mediastinal silhouettes are within normal limits for technique. No acute bony abnormality seen XR/XR chest 2V IMPRESSION: No evidence of acute disease
--- NOTE | 2022-12-28 18:21 | ECG_ITS ---
Test Reason : chest pain Blood Pressure : / mmHG Vent. Rate : 090 BPM Atrial Rate : 090 BPM P-R Int : 140 ms QRS Dur : 088 ms QT Int : 346 ms P-R-T Axes : 082 061 026 degrees QTc Int : 423 ms Sinus rhythm with sinus arrhythmia with occasional Premature ventricular complexes Nonspecific T wave changes Abnormal EKG When compared with ECG of 01-APR-2022 01:15, Premature ventricular complexes are now Present Referred By: Mackenzie Diaz Electronically Signed By:Demetrio Iqbal
--- NOTE | 2022-12-28 18:23 | ED_ITS ---
HPI - Chest Pain General Chief Complaint: Chest Pain <JUAN M Rankin - Last Filed: 12/28/22 18:28> Stated Complaint: chest pain <JUAN M Rankin - Last Filed: 12/28/22 18:28> Time Seen by Provider: 12/28/22 23:51 <JUAN M Rankin - Last Filed: 12/28/22 18:28> Source: patient <Khalif Paul MD - Last Filed: 12/29/22 03:33> Mode of arrival: ambulatory <Khalif Paul MD - Last Filed: 12/29/22 03:33> Limitations: no limitations <Khalif Paul MD - Last Filed: 12/29/22 03:33> History of Present Illness HPI narrative: Patient with history of cocaine abuse for long time today he use more than usual cocaine earlier at noon time noticed chest discomfort improved after coming to the ER no chest pain at this time patient felt funny in the chest no diaphoresis no nausea no vomiting no slough of similar pain in the past <Khalif Paul MD - Last Filed: 12/29/22 03:33> Related Data Home Medications: Home Medications Medication Instructions Recorded Confirmed methadone 5 mg/5 mL oral solution 140 mg PO DAILY 03/04/21 11/28/22 <JUAN M Rankin - Last Filed: 12/28/22 18:28> Allergies/Adverse Reactions: Allergies Allergy/AdvReac Type Severity Reaction Status Date / Time hydrocodone [Vicodin] Allergy Unknown stomach Verified 03/04/21 15:15 upset <JUAN M Rankin - Last Filed: 12/28/22 18:28> Review of Systems Review of Systems: Yes all other systems are reviewed and are negative <Khalif Paul MD - Last Filed: 12/29/22 03:33> PMFSH Past Medical History Medical History: Medical History Opiate use Respiratory failure with hypoxia Respiratory failure with hypoxia Substance abuse or dependence <JUAN M Rankin - Last Filed: 12/28/22 18:28> Social History Social History: Social History Household Members: None Housing: Apartment Alcohol intake: never Patient Tobacco Use Status: Never used Tobacco Substance Use Type: Crack/Cocaine Advance Directives: No Advance Directives Information Provided: No service: No Current occupational status: disabled <JUAN M Rankin - Last Filed: 12/28/22 18:28> Physical Exam Vital Signs: Vital Signs: Last Vital Signs Temp 98.8 F 12/28/22 18:24 Pulse 88 12/28/22 18:24 Resp 18 12/28/22 18:24 BP 145/85 H 12/28/22 18:24 Pulse Ox 97 12/28/22 18:24 O2 Del Method Room Air 12/28/22 18:24 BMI result Body Mass Index 29.9 <JUAN M Rankin - Last Filed: 12/28/22 18:28> Vital Signs: Last Vital Signs Temp 98.8 F 12/28/22 18:24 Pulse 88 12/28/22 18:24 Resp 18 12/28/22 18:24 BP 145/85 H 12/28/22 18:24 Pulse Ox 97 12/28/22 18:24 O2 Del Method Room Air 12/28/22 18:24 BMI result Body Mass Index 29.9 <Khalif Paul MD - Last Filed: 12/29/22 03:33> Appearance: Alert. Oriented X3. No acute distress. Anxious no chest Eyes: PERRLA, No Nystagmus ENT: Pharynx normal. Oral Mucosa moist Neck: Normal inspection. Neck supple. CVS: Normal heart rate and rhythm. Pulses normal. Respiratory: No respiratory distress. Equal air entry bilateral, no wheezing/rales/rhonchi Abdomen: Soft and nontender. Bowel sounds are present, Skin: Skin warm and dry. Normal skin color. Normal skin turgor. Extremities: No lower extremity edema. No calf tenderness Neuro: Oriented X 3. No motor deficit. <Khalif Paul MD - Last Filed: 12/29/22 03:33> Course Course Course Narrative: RME - 27 yo male with polysubstance abuse on methadone, ongoing crack cocaine use who presents to the ER for evaluation of nonradiating sharp left sided chest pains that come and go and are worse with palpation. +SOB as well. He has been using more crack cocaine and not sleeping the last few days. VSS in triage and chest pain is reproducible. Plan: EKG, CXR, labs <JUAN M Rankin - Last Filed: 12/28/22 18:28> Medical Decision Making Medical Decision Making [facility] Narrative: Patient has atypical chest pain use of cocaine discharged patient advised to stop using cocaine <Khalif Paul MD - Last Filed: 12/29/22 03:33> Lab Data [facility] Lab Attestation statement: I reviewed the patient's lab results. <Khalif Paul MD - Last Filed: 12/29/22 03:33> Result Diagrams: 12/28/22 18:45 12/28/22 18:45 <JUAN M Rankin - Last Filed: 12/28/22 18:28> Labs: Lab Results 12/28/22 12/28/22 04 Range/Units 18:44 18:45 18:45 WBC 7.1 (4.8-10.8) X10*3/uL RBC 4.45 L (4.60-5.80) X10*6/uL Hgb 14.4 (14.0-18.0) g/dl Hct 42.7 (42.0-52.0) % MCV 96.0 (80.0-98.0) fL MCH 32.4 (27.0-33.0) pg MCHC 33.7 (31.0-36.0) g/dl RDW 11.7 (11.0-16.0) % Plt Count 325 (160-400) X10*3/uL MPV 9.1 L (9.4-12.4) fL Immature Gran % (Auto) 0.1 (0.0-0.4) % Neut % (Auto) 44.5 L (45-73) % Lymph % (Auto) 40.7 H (20-40) % [place] % (Auto) 13.3 H (2-11) % Eos % (Auto) 0.7 (0-4) % Baso % (Auto) 0.7 (0-2) % Lymph # (Auto) 2.9 (1.2-4.9) X10*3/uL [place] # (Auto) 0.9 (0.1-1.2) X10*3/uL Eos # (Auto) 0.1 (0.0-0.4) X10*3/uL Baso # (Auto) 0.1 (0.0-0.2) X10*3/uL Abs Immat Gran (auto) 0.01 (0.00-0.03) X10*3/uL Absolute Neuts (auto) 3.2 (2.0-8.3) x10*3/uL Absolute Nucleated RBC 0.000 (0.0-0.012) X10*3/uL Nucleated RBC % (auto) 0.0 (0.0-0.2) /100WBC Sodium 140 (135-145) mmol/L Potassium 4.2 (3.3-5.1) mmol/L Chloride 103 (96-108) mmol/L Carbon Dioxide 24 (22-29) mmol/L Anion Gap 17 (12-20) BUN 13 (9-16) mg/dL Creatinine 1.07 (0.5-1.4) mg/dL Estim Creat Clear Calc 114.1 Estimated GFR > 60 Random Glucose 97 (60-115) mg/dL Calcium 10.2 (8.4-10.2) mg/dL Magnesium 2.5 (1.6-2.6) mg/dL Total Bilirubin 0.9 (0.0-1.0) mg/dL Direct Bilirubin 0.2 (0.0-0.5) mg/dL AST 24 (5-37) U/L ALT 23 (0-40) U/L Alkaline Phosphatase 98 (39-117) U/L Troponin I High Sens < 3.5 (<3.5-35.0) ng/L Total Protein 8.4 H (6.5-8.0) g/dL Albumin 5.2 H (3.5-5.0) g/dL Ethyl Alcohol < 10 mg/dL <JUAN M Rankin - Last Filed: 12/28/22 18:28> Lab Results 12/28/22 12/28/22 12/28/22 Range/Units 18:44 18:45 18:45 WBC 7.1 (4.8-10.8) X10*3/uL RBC 4.45 L (4.60-5.80) X10*6/uL Hgb 14.4 (14.0-18.0) g/dl Hct 42.7 (42.0-52.0) % MCV 96.0 (80.0-98.0) fL MCH 32.4 (27.0-33.0) pg MCHC 33.7 (31.0-36.0) g/dl RDW 11.7 (11.0-16.0) % Plt Count 325 (160-400) X10*3/uL MPV 9.1 L (9.4-12.4) fL Immature Gran % (Auto) 0.1 (0.0-0.4) % Neut % (Auto) 44.5 L (45-73) % Lymph % (Auto) 40.7 H (20-40) % [place] % (Auto) 13.3 H (2-11) % Eos % (Auto) 0.7 (0-4) % Baso % (Auto) 0.7 (0-2) % Lymph # (Auto) 2.9 (1.2-4.9) X10*3/uL [place] # (Auto) 0.9 (0.1-1.2) X10*3/uL Eos # (Auto) 0.1 (0.0-0.4) X10*3/uL Baso # (Auto) 0.1 (0.0-0.2) X10*3/uL Abs Immat Gran (auto) 0.01 (0.00-0.03) X10*3/uL Absolute Neuts (auto) 3.2 (2.0-8.3) x10*3/uL Absolute Nucleated RBC 0.000 (0.0-0.012) X10*3/uL Nucleated RBC % (auto) 0.0 (0.0-0.2) /100WBC Sodium 140 (135-145) mmol/L Potassium 4.2 (3.3-5.1) mmol/L Chloride 103 (96-108) mmol/L Carbon Dioxide 24 (22-29) mmol/L Anion Gap 17 (12-20) BUN 13 (9-16) mg/dL Creatinine 1.07 (0.5-1.4) mg/dL Estim Creat Clear Calc 114.1 Estimated GFR > 60 Random Glucose 97 (60-115) mg/dL Calcium 10.2 (8.4-10.2) mg/dL Magnesium 2.5 (1.6-2.6) mg/dL Total Bilirubin 0.9 (0.0-1.0) mg/dL Direct Bilirubin 0.2 (0.0-0.5) mg/dL AST 24 (5-37) U/L ALT 23 (0-40) U/L Alkaline Phosphatase 98 (39-117) U/L Troponin I High Sens < 3.5 (<3.5-35.0) ng/L Total Protein 8.4 H (6.5-8.0) g/dL Albumin 5.2 H (3.5-5.0) g/dL Ethyl Alcohol < 10 mg/dL <Khalif Paul MD - Last Filed: 12/29/22 03:33> Independent Interpretation I performed an independent interpretation of an: EKG <Khalif Paul MD - Last Filed: 12/29/22 03:33> Interpretation: Normal sinus rhythm heart rate 90 beats per minute PACs with occasional PVCs no acute ST-T changes no acute ischemia <Khalif Paul MD - Last Filed: 12/29/22 03:33> Discharge Plan Discharge Clinical Impression: Cocaine abuse, Chest pain <JUAN M Rankin - Last Filed: 12/28/22 18:28> Patient Disposition: Home, Self-Care <JUAN M Rankin - Last Filed: 12/28/22 18:28> Instructions: Chest Pain (ED), Cocaine Abuse (ED) <JUAN M Rankin - Last Filed: 12/28/22 18:28> Additional Instructions: Stop using cocaine as it could be the cause of chest pain P <JUAN M Rankin Last Filed: 12/28/22 18:28> Prescriptions: No Action methadone 5 mg/5 mL Solution 140 mg PO DAILY <JUAN M Rankin Last Filed: 12/28/22 18:28> Interventions: ED Discharge Assessment Last Done: 12/29/22 00:26 <JUAN M Rankin Last Filed: 12/28/22 18:28> Discharge Date/Time: 12/29/22 00:32 <JUAN M Rankin - Last Filed: 12/28/22 18:28>
[2022-12-28 18:24] VITALS: BP 145/85; PULSE 88; RESP 18; TEMP 37.1; O2SAT 97; BMI 29.9
[2022-12-28 18:48] LABS: MANUAL DIFF FLAG NO
[2022-12-28 18:50] LABS: Basophils Absolute Auto 0.1 X10*3/uL (0.0-0.2); Basophils Percent Auto 0.7 % (0-2); Eosinophils Absolute Auto 0.1 X10*3/uL (0.0-0.4); Eosinophils Percent Auto 0.7 % (0-4); Hematocrit 42.7 % (42.0-52.0); Hemoglobin 14.4 g/dl (14.0-18.0); Imm Gran Abs Auto 0.01 X10*3/uL (0.00-0.03); Imm Gran Pct Auto 0.1 % (0.0-0.4); Lymphocytes Absolute Auto 2.9 X10*3/uL (1.2-4.9); Lymphocytes Percent Auto 40.7 % (20-40); Mean Corpuscular HGB Conc 33.7 g/dl (31.0-36.0); Mean Corpuscular Hemoglobin 32.4 pg (27.0-33.0); Mean Platelet Volume 9.1 fL (9.4-12.4); Monocytes Absolute Auto 0.9 X10*3/uL (0.1-1.2); Monocytes Percent Auto 13.3 % (2-11); Neutrophils Absolute Auto 3.2 x10*3/uL (2.0-8.3); Neutrophils Percent Auto 44.5 % (45-73); Platelet Count 325 X10*3/uL (160-400); Red Blood Count 4.45 X10*6/uL (4.60-5.80); Red Cell Distribution Width 11.7 % (11.0-16.0); White Blood Count 7.1 X10*3/uL (4.8-10.8)
[2022-12-28 19:18] LABS: Alanine Aminotransferase 23 U/L (0-40); Albumin Level 5.2 g/dL (3.5-5.0); Alkaline Phosphatase 98 U/L (39-117); Anion Gap 17 (12-20); Aspartate Amino Transferase 24 U/L (5-37); Bilirubin Direct 0.2 mg/dL (0.0-0.5); Bilirubin Total 0.9 mg/dL (0.0-1.0); Blood Urea Nitrogen 13 mg/dL (9-16); Calcium 10.2 mg/dL (8.4-10.2); Carbon Dioxide 24 mmol/L (22-29); Chloride 103 mmol/L (96-108); Creatinine Clr Calc Pharmacy 114.1; Estimated Glomerular Filt Rate > 60; Ethanol < 10 mg/dL; Glucose Random 97 mg/dL (60-115); Magnesium 2.5 mg/dL (1.6-2.6); Potassium 4.2 mmol/L (3.3-5.1); Sodium 140 mmol/L (135-145); Total Protein 8.4 g/dL (6.5-8.0)
[2022-12-28 19:19] LABS: Troponin-I High Sensitivity < 3.5 ng/L (<3.5-35.0)
--- NOTE | 2022-12-28 20:13 | PC.NURSE ---
I called this patient in the waiting room on three different occasions, each at least 5 minutes apart. no answer. pt presumed eloped.
== END 2022-12-29 00:32 | disposition home or self-care (01) ==
PROVIDERS: Physician Assistant; Emergency Provider Internal Medicine; PCP Internal Medicine
DX: R07.89 Other chest pain (principal); F14.10 Cocaine abuse, uncomplicated; Z79.899 Other long term (current) drug therapy
CPT/HCPCS: 36415; 71046; 80048; 80076; 82077; 83735; 84484; 85025; 93005; 99283; 99285

== ENCOUNTER 2023-06-16 08:05 | Emergency (ER) | payer OTHER, SELFPAY ==
[2023-06-16] VITALS (17 sets, daily range): BP systolic 91–149; BP diastolic 44–91; PULSE 64–192; RESP 14–22; TEMP 37.1; O2SAT 96–100; BMI 25.8
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
[2023-06-16] MEDS: LORazepam 2 MG/ML VIAL IM (08:15)
[2023-06-16] MEDS: diphenhydrAMINE HCL 50 MG/ML VIAL IM (08:15)
[2023-06-16] MEDS: Haloperidol Lactate 5 MG/ML VIAL IM (08:15)
[2023-06-16] MEDS: Metoclopramide HCl 10 MG/2 ML VIAL IM (08:20)
--- NOTE | 2023-06-16 08:20 | MHC.EDTECH ---
BELONGINGS TO DECON W/SECURITY AT THIS TIME
[2023-06-16] MEDS: Midazolam HCl/PF 2 MG/2 ML VIAL 4 MG IM (08:44)
--- NOTE | 2023-06-16 08:52 | PC.NURSE ---
KARAN at about 08:15. Pt arrived in EMS restraints, and was transferred to our restraints for combative/aggressive behavior. Spit cheney in place. Security was at bedside. Received IM medication restraints per NOV. Security removed personal items from pt to be brought to decon. Approximately 8:45 pt brought to room and placed on bedside monitor. Remains in upright position d/t concerns of aspiration. Remains agitated, provider made aware, Given IM versed per providers order. Unable to give IV fluids and zofran d/t agitation and inability to start a peripheral IV line.
--- NOTE | 2023-06-16 09:22 | MHC.RECOVRN ---
Unable to make contact at this time for SUDe, pt chemically restrained upon arrival to ED for combative/aggressive behavior. Pt's RN to contact recovery team when pt awakens.
[2023-06-16] MEDS: Midazolam HCl/PF 2 MG/2 ML VIAL 5 MG IM (10:01)
--- NOTE | 2023-06-16 10:05 | PC.NURSE ---
PT continues to have sporadic aggressive movements in extremities, pt remains uncooperative with care. Per MD another IM dose of versed given. Pt remains vitally stable at this time. Spit mask removed, as pt has stopped spitting and vomiting at this time
--- NOTE | 2023-06-16 13:18 | PC.NURSE ---
Pt removed from all restraints at 1105, Pt has been resting comfortably at this time if you don't touch him, hygiene care provided when restraints removed pt had BM. Attempting to dry scan pt at this time since he is more cooperative. Upon return tech to attempt labs as pt has been too unsafe with staff to collect or place IV
[2023-06-16 14:10] LABS: Acetaminophen LAB < 17 mcg/mL (<30); Alanine Aminotransferase 16 U/L (0-40); Albumin Level 4.3 g/dL (3.5-5.0); Alkaline Phosphatase 84 U/L (39-117); Anion Gap 14 (12-20); Aspartate Amino Transferase 37 U/L (5-37); Blood Urea Nitrogen 12 mg/dL (9-16); Calcium 9.5 mg/dL (8.4-10.2); Carbon Dioxide 25 mmol/L (22-29); Chloride 105 mmol/L (96-108); Estimated Glomerular Filt Rate > 60; Ethanol < 10 mg/dL; Glucose Random 82 mg/dL (60-115); Magnesium 2.1 mg/dL (1.6-2.6); Potassium 3.8 mmol/L (3.3-5.1); Salicylate < 5.0 mg/dL (15-30); Sodium 140 mmol/L (135-145); Total Protein 7.4 g/dL (6.5-8.0)
[2023-06-16 16:38] LABS: Basophils Percent Auto 0.3 % (0-2); Eosinophils Percent Auto 0.1 % (0-4); Hematocrit 37.1 % (42.0-52.0); Hemoglobin 13.3 g/dl (14.0-18.0); Imm Gran Abs Auto 0.03 X10*3/uL (0.00-0.03); Imm Gran Pct Auto 0.3 % (0.0-0.4); Lymphocytes Absolute Auto 1.3 X10*3/uL (1.2-4.9); Lymphocytes Percent Auto 11.8 % (20-40); Mean Corpuscular HGB Conc 35.8 g/dl (31.0-36.0); Mean Corpuscular Hemoglobin 33.7 pg (27.0-33.0); Mean Corpuscular Volume 93.9 fL (80.0-98.0); Monocytes Absolute Auto 0.7 X10*3/uL (0.1-1.2); Monocytes Percent Auto 6.2 % (2-11); Neutrophils Absolute Auto 8.9 x10*3/uL (2.0-8.3); Neutrophils Percent Auto 81.3 % (45-73); Platelet Count 259 X10*3/uL (160-400); Red Blood Count 3.95 X10*6/uL (4.60-5.80); Red Cell Distribution Width 11.5 % (11.0-16.0); White Blood Count 10.9 X10*3/uL (4.8-10.8)
--- NOTE | 2023-06-16 17:57 | PC.NURSE ---
Unable to document / assess columbia scale d/t patient continuing to sleep d/t IM medications / continuing to refuse to speak to staff
--- NOTE | 2023-06-16 19:45 | MHC.CARE ---
CARE Team attempted a SUDE upon initiating pt was sleeping and was not interviewable. CARE Team will attempt later.
--- NOTE | 2023-06-16 22:58 | PC.NURSE ---
I assumed care of the patient at 1900. Pt is sleeping comfortably in bed at this time. Pt is calm and cooperative. per worklist, if pt is asleep, it is recommended to not wake them, so psychiatric assessment has been delayed. Spoke with pt's emergency contact who was calling for updates. She stated that pt has been through a lot of life stressors recently, including his twin dying, and his girlfriend going to retirement. She is concerned for his mental health. Pt is still waiting to be evaluated by CARE Team
[2023-06-17] VITALS (7 sets, daily range): BP systolic 100–137; BP diastolic 45–67; PULSE 72–92; RESP 13–16; TEMP 36.8–37.4; O2SAT 97–99
--- NOTE | 2023-06-17 08:24 | PC.NURSE ---
assumed care of pt at 0700. report taken from PIERCE Rodríguez. pt sleeping on stretcher with friend at bedside also sleeping. rr even/unlabored. call sousa within pt reach. awaiting pt to wake up for assessments/labs.
--- NOTE | 2023-06-17 08:30 | MHC.EDTECH ---
Vital signs done, and Pt asking for his methadone. Made PIERCE Lopez aware and Pt was also reminded that we need a urine sample still.
[2023-06-17 10:08] LABS: Appearance Urine Cloudy; Color Urine Dark Yellow; Glucose Urine UA Negative (Negative); Leukocyte Esterase Urine Negative (Negative); Nitrite Urine Negative (Negative); Specific Gravity - Urine >= 1.030 (1.005-1.025); Urine Blood Negative (Negative); Urine Ketones 80 mg/dL (Negative); Urine Protein Trace mg/dL (Neg-Trace)
[2023-06-17 10:17] LABS: Amphetamine Screen Urine Not Detected (Not Detect); Barbiturates, Urine Not Detected (Not Detect); Benzodiazepines Screen Urine POSITIVE (Not Detect); Cannabinoid Screen Urine Not Detected (Not Detect); Cocaine Screen Urine POSITIVE (Not Detect); Fentanyl, urine POSITIVE (Not Detect); Opiate Screen Urine POSITIVE (Not Detect); Phencyclidine Screen Urine Not Detected (Not Detect)
--- NOTE | 2023-06-17 11:09 | HO.SUDE ---
Addendum entered by Favio Miller 06/17/23 14:17: Pt was getting into [facility] but then decided he did not want ATS any longer. Pt has been dosed and is set to follow up from the community after DC. Provider and nurse aware. Original Note: Met with pt to complete SUDE, pt here in ED post overdose. Pt reports smoking an unknown amount of cocaine and heroin and he was using in addition to his 140mg Methadone from [facility] in [place] that he has been on for 5 years. Pt states this is his first OD and he had 1 year of sobriety up until summer when he started using again. At this time pt is interested in ATS but would only like to go to [facility]. T/W reviewed harm reduction and opiate overdose prevention, pt verbalized understanding and had no other questions or concerns at this time. ATS bed search in process.
--- NOTE | 2023-06-17 11:10 | PC.NURSE ---
methadone verification obtained and sent to pharmacy. pt gets methadone from [facility] in [place]. last methadone dose given 06/11/23. pt received 140mg methadone.
[2023-06-17] MEDS: methADONE HCl 20 MG/2 ML ORAL.CONC 30 MG PO (12:58)
--- NOTE | 2023-06-17 13:32 | PC.NURSE ---
pt denies SI/HI. resting quietly on stretcher with visitor sleeping at pt bedside. ate lunch.
== END 2023-06-17 15:20 | disposition home or self-care (01) ==
PROVIDERS: Physician Assistant; Emergency Provider Emergency Medicine; PCP Internal Medicine
DX: T40.2X1A Poisoning by other opioids, accidental (unintentional), initial encounter (principal); R51.9 Headache, unspecified; M54.6 Pain in thoracic spine; M54.2 Cervicalgia; R10.2 Pelvic and perineal pain; Y92.9 Unspecified place or not applicable; Z71.51 Drug abuse counseling and surveillance of drug abuser; Z79.899 Other long term (current) drug therapy
CPT/HCPCS: 36415; 70450; 71250; 72125; 74176; 80053; 80143; 80179; 80307; 81003; 83735; 85025; 96372; 99285; J1200; J2060; J2250; J2765

== ENCOUNTER 2024-03-14 00:47 | Emergency (ER) | payer OTHER, SELFPAY ==
--- NOTE | ~2024-03-14 | XR_ITS ---
EXAMINATION: XR ELBOW, RIGHT CLINICAL INFORMATION: Injury. Pain. COMPARISON: None available. TECHNIQUE: AP, lateral, and oblique views of the right elbow. FINDINGS: The bones and soft tissues are normal. No fracture or joint effusion. Alignment is anatomic. Joint spaces are maintained. XR/XR elbow RT min 3V IMPRESSION: No acute osseous abnormality. No joint effusion.
[2024-03-14 00:55] VITALS: BP 125/80; BP 128/77; PULSE 107; PULSE 80; RESP 20; TEMP 523.8; TEMP 975; O2SAT 100; O2SAT 98; BMI 22.1
[2024-03-14 01:00] VITALS: BP 128/77; PULSE 104; RESP 20; TEMP 36.4; O2SAT 99
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
[2024-03-14] MEDS: Ibuprofen 600 MG TABLET PO (02:42)
[2024-03-14 04:00] VITALS: BP 112/51; PULSE 86; RESP 16; TEMP 36.8; O2SAT 95
[2024-03-14 04:06] VITALS: BP 112/51; PULSE 86; RESP 16; TEMP 36.8; O2SAT 95
== END 2024-03-14 04:08 | disposition home or self-care (01) ==
PROVIDERS: Emergency Provider Internal Medicine
DX: S50.11XA Contusion of right forearm, initial encounter (principal); X50.1XXA Overexertion from prolonged static or awkward postures, initial encounter; Y93.89 Activity, other specified; Y92.89 Other specified places as the place of occurrence of the external cause; Y99.9 Unspecified external cause status
CPT/HCPCS: 73080; 99283; 99284

== ENCOUNTER 2025-04-26 19:11 | Emergency (ER) | payer OTHER, SELFPAY ==
[2025-04-26 19:35] VITALS: BP 132/64; PULSE 109; RESP 18; TEMP 37.3; O2SAT 99; BMI 31.6
[2025-04-26 19:48] LABS: IDNOW Serial# 58CA691E; Strep A Nucleic Acid Negative (Negative)
[2025-04-26 20:18] LABS: Resp Syncy Virus RNA Qual PCR NEGATIVE (Negative); SARS COV2 PCR INHOUSE NEGATIVE (Negative)
[2025-04-26 21:03] VITALS: BP 132/74; PULSE 100; RESP 20; TEMP 36.7; O2SAT 98
--- NOTE | 2025-04-26 21:06 | ED.GENADULT ---
HPI - General Adult General Chief complaint: Upper Respiratory Symptoms Stated complaint: covid? body shakes/sob Time Seen by Provider: 04/26/25 20:27 Source: patient Limitations: no limitations History of Present Illness ED Provider: Juliette Sanches PA-C HPI narrative: 30-year-old male with a history of polysubstance abuse presents with viral syndrome x1 day. Associated generalized malaise, body aches, sore throat. No fevers, no sick contacts with same symptoms. Related Data Home Medications ?Medication ?Instructions ?Recorded ?Confirmed methadone 5 mg/5 mL oral solution 140 mg PO DAILY 03/04/21 11/28/22 Previous Rx's ?Medication ?Instructions ?Recorded ibuprofen 600 mg tablet 600 mg PO Q6H PRN fever or pain 03/14/24 #30 tabs Allergies Allergy/AdvReac Type Severity Reaction Status Date / Time hydrocodone (Vicodin) Allergy Unknown stomach Verified 04/26/25 19:40 upset Review of Systems Review of Systems: Yes all other systems are reviewed and are negative Constitutional: Constitutional: Denies fatigue, Denies fever(s) and Reports malaise ENT: Denies nasal congestion and Reports sore throat Cardiovascular: Cardiovascular: Denies chest pain and Denies dyspnea Respiratory: Respiratory: Reports cough and Denies dyspnea Gastrointestinal: Gastrointestinal: Denies diarrhea, Denies nausea and Denies vomiting Musculoskeletal: Musculoskeletal: Reports myalgias Endocrine: Endocrine: Denies fatigue PMFSH Past Medical History Attestation statement: The following information was validated with the patient. Medical History Substance abuse or dependence Respiratory failure with hypoxia Respiratory failure with hypoxia Opiate use Social History Social History Household Members: None Housing: Apartment Alcohol intake: never Patient Tobacco Use Status: Never used Tobacco Substance Use Type: Crack/Cocaine and Heroin Advance Directives: No Advance Directives Information Provided: No service: No Current occupational status: disabled Physical Exam ED Vital Signs: Vital Signs - 24 hr 04/26/25 19:35 04/26/25 21:03 Temperature 99.2 F 98.1 F Pulse Rate 109 H 100 Respiratory Rate 18 20 Blood Pressure 132/64 132/74 Pulse Oximetry 99 98 Oxygen Delivery Method Room Air Room Air BMI result Body Mass Index 31.6 Const Other: Alert Orientation/consciousness: patient oriented x3 HENMT Other: Oropharynx is pink, no overlying erythema or exudate, uvula midline, no trismus no drooling no sublingual fluctuance Resp Effort & Inspection: normal respiratory effort Cardio Other: Normal peripheral perfusion Skin Other: Warm dry no rash Neuro General: patient oriented x3, gait normal, no focal motor deficits and CN's II-XI intact bilaterally Psych Other: Cooperative Medical Decision Making Medical Decision Making MDM Narrative: 30-year-old male with a history of polysubstance abuse presents with viral syndrome x1 day. Associated generalized malaise, body aches, sore throat. No fevers, no sick contacts with same symptoms. Problem: Polysubstance abuse History: Per patient I have considered the following differential diagnoses: Viral syndrome, , strep pharyngitis, RPA, [employer] Plan: Viral panel and strep screen ordered from triage, both studies negative. The patient has no evidence of RPA or V[employer]ATIONAL [employer]ORTIC[employer]URE IN[employer]CTOR on exam. He has yet another virus causing his symptoms. We will send with home care instructions. I have independently reviewed the following tests: Viral panel negative, strep screen negative Lab Data Labs: Lab Results 04/26/25 Range/Units 19:34 Influenza Type A (PCR) NEGATIVE (Negative) Influenza Type B (PCR) NEGATIVE (Negative) RSV RNA Qual (PCR) NEGATIVE (Negative) SARS-CoV-2 RNA (RT-PCR) NEGATIVE (Negative) S. pyogenes GrpA MALU Negative (Negative) Discharge Plan Discharge Clinical Impression: Pharyngitis, Acute viral syndrome Patient Disposition: Home, Self-Care Instructions: Viral Syndrome (ED), Pharyngitis (ED) Additional Instructions: You were tested for influenza, RSV and COVID, the viral panel was negative. You were tested for strep throat that was negative as well. You have yet another virus causing your symptoms. See home care instructions. For your sore throat, warm saltwater gargles are helpful. You can alternate between the use of [id number] ibuprofen 600 mg taken every 6 hours with food, with [id number] Tylenol 1000 mg taken every 8 hours, for fever and body aches. Follow up with your primary care as needed. Prescriptions: No Action methadone 5 mg/5 mL Solution 140 mg PO DAILY ibuprofen 600 mg tablet 600 mg PO Q6H PRN (Reason: fever or pain) Qty: 30 0RF Print Language: Upper Sorbian
[2025-04-26 21:20] VITALS: BP 132/74; PULSE 100; RESP 20; TEMP 36.7; O2SAT 98
--- NOTE | 2025-04-26 21:20 | PC.NURSE ---
Pt a&ox4, no signs of distress. Pt reports 10/10 throat and body aches Pt ambulates with a steady gait. Plan of care ongoing.
== END 2025-04-26 21:22 | disposition home or self-care (01) ==
PROVIDERS: Emergency Provider Emergency Medicine; PCP Internal Medicine
DX: J02.9 Acute pharyngitis, unspecified (principal); B34.9 Viral infection, unspecified; Z03.818 Encounter for observation for suspected exposure to other biological agents ruled out
CPT/HCPCS: 87637; 87651; 99283; 99284